=== PATIENT | male | born 1935 | race Caucasian/White ===

== ENCOUNTER 2016-10-30 11:33 | Emergency (ER) | payer MEDICARE, OTHER ==
[2016-10-30] MEDS ORDERED: NS 0.9% 1000 ML* 1,000 ML IV ONE (12:08)
[2016-10-30] MEDS ORDERED: fentaNYL* 50 MCG/ML 2 ML VIAL (100 MCG VIAL) IV SLOW PU ONE (12:10)
[2016-10-30 12:20] LABS: Hematocrit 43 % (42-52); Mean Corpuscular HGB Conc 33 g/dl (31-36); Mean Corpuscular Hemoglobin 33 pg (27-31); Mean Corpuscular Volume 100 fL (80-94); Mean Platelet Volume 8 um3 (7.4-10.4); Red Cell Distribution Width 13 % (10.5-15); White Blood Count 6.9 10^3/ul (3.5-10.8)
[2016-10-30 12:30] LABS: Urine Bacteria Absent (Absent); Urine Bilirubin Negative (Negative); Urine Glucose Negative (Negative); Urine Nitrite Negative (Negative)
[2016-10-30 12:36] LABS: Albumin 3.9 g/dL (3.2-5.2); BUN/Creatinine Ratio 19.8 (8-20); C Reactive Protein 3.71 mg/L (< 5.00); Calcium 9.6 mg/dL (8.6-10.3); EGFR African American 91.9 (>60); EGFR Non-African American 71.4 (>60); Globulin 5.9 g/dL (2-4); Total Bilirubin 0.4 mg/dL (0.2-1.0); Total Protein 9.8 g/dL (6.4-8.9)
--- NOTE | 2016-10-30 13:12 | RAD ---
INDICATION: Right flank pain radiating to the right lower quadrant. COMPARISON: Comparison is made with a prior CT of the abdomen and pelvis from June 27, 2013. TECHNIQUE: A CT scan of the abdomen and pelvis was performed without intravenous or oral contrast. Contiguous axial sections were obtained from the lung bases through the symphysis pubis. Images were reconstructed in the coronal and sagittal planes. FINDINGS: Images through the lung bases demonstrate mild bronchiectasis and chronic interstitial lung changes and paraseptal emphysematous change. No pleural effusion is present. The liver and spleen are normal in size. No significant focal abnormality is seen. There is a small splenic calcifications suggest the possibility of old granulomatous disease. Note is made of gallstones. No gallbladder wall thickening is seen. The pancreas appears to be within normal limits. The adrenal glands appear to be within normal limits. There is a horseshoe kidney present. There are multiple calculi present on the right side measuring up to 6 mm in size. There is dilatation of the right renal pelvis and ureter to the level of the ureterovesical junction. There is a small calculus present in the dependent portion of the urinary bladder measuring 3 mm in size likely representing a recently passed calculus. The bladder is decompressed with a Ramirez catheter. There is a small small amount of air within the bladder. The aorta is normal in caliber with moderate calcific plaque present. There is a filter present within the inferior vena cava. This extends superior to the level of the renal veins. There is a retroaortic left renal vein. No significant enlarged retroperitoneal lymph nodes are seen. The stomach, small and large bowel appear nondistended. The appendix is within normal limits. There is no evidence for diverticulitis or colitis. There is a small periumbilical hernia containing fat. No free intraperitoneal air or fluid is seen. There are chronic compression fractures of the T12, L1, L2, L3, L4 and L5 vertebral bodies. No other significant focal osseous abnormalities are seen. IMPRESSION: 1. 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 2. THERE ARE MULTIPLE SMALL ADDITIONAL RENAL CALCULI ON THE RIGHT SIDE. 3. CHOLELITHIASIS. 4. MULTIPLE CHRONIC DORSAL AND LUMBAR COMPRESSION FRACTURES.
[2016-10-30 13:21] LABS: Potassium 3.5 mmol/L (3.5-5.0)
[2016-10-30 15:34] VITALS: BP 148/74
--- NOTE | 2016-10-30 19:32 | PN ---
Progress Note - Progress Note Date of Service: 10/30/16 Note: Steve called and said that they have on file that the patient is allergic to Bactrim although patient is not sure what the allergy is. Told the pharmacy to switch patient to ciprofloxacin 500mg bid x7 days.
--- NOTE | 2016-10-31 16:02 | ED ---
Michael Lima Auryana, scribed for Lyndon Blair MD on 10/30/16 at 1220 . GI/ HPI - HPI Summary HPI Summary: 80 year old male presents to the ED with inability to urinate and right flank pain starting yesterday. Patient reports that the pain started at the right flank but now radiate down to the RLQ. He denies any fever, nausea, or any vomiting. PMHx is significant for sepsis, kidney stones and chronic back pain s/ p discectomy x2 (on fentanyl patch for pain). - History of Current Complaint Chief Complaint: EDAbdPain Time Seen by Provider: 10/30/16 12:07 Stated Complaint: ABD PAIN, Hx Obtained From: Patient Onset/Duration: Started Hours Ago - yesterday night, Still Present Timing: Constant Severity: Severe Current Severity: Severe Pain Intensity: 10 - at the right flank Location of Pain: Radiates to:, RLQ Associated Signs and Symptoms: Positive: Other: - inability to urinate. 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, Other Cardiovascular Problems/Disorders - CARDIAC CATH WITH 2 STENTS Denies: Hx Congestive Heart Failure, Hx Valvular Heart Disease Respiratory History: Reports: Hx Pneumonia, Other Respiratory Problems/ Disorders - WAS IP @ [facility] [place] FROM [id number] HAD PN Denies: Hx Asthma, Hx Chronic Obstructive Pulmonary Disease (COPD) GI History: Reports: Hx Gastroesophageal Reflux Disease Denies: Other GI Disorders History: Reports: Hx Benign Prostatic Hyperplasia, Hx Chronic Renal Failure - CKD, Hx Kidney Stones - HX- APPROX 2010 Denies: Hx Dialysis, Hx Renal Disease, Other Problems/Disorders Musculoskeletal History: Reports: Hx Arthritis - RHEUMATOID, Hx Back Problems - CHRONIC Sensory History: Reports: Hx Cataracts, Hx Contacts or Glasses - GLASSES, Hx Hearing Problem - a bit hard of hearing Denies: Hx Hearing Aid Opthamlomology History: Reports: Hx Cataracts, Hx Contacts or Glasses - GLASSES Neurological History: Reports: Other Neuro Impairments/Disorders - SJOGERNS/ FORGETFULLNESS Psychiatric History: Denies: Hx Panic Disorder - Surgical History Surgery Procedure, Year, and Place: LUMBAR LAMENECTOMY L3-L4 1997- [facility] [place]. BACK SURGERY 1968- [facility] [place]. 2-CARDIAC STENTS 1999- [employer]. 03/28- PACEMAKER INSERTION- [facility] [place] Hx Anesthesia Reactions: No - Immunization History Date of Tetanus Vaccine: More than 10 years ago Date of Influenza Vaccine: Not since age 67 and patient refuses Infectious Disease History: No Infectious Disease History: Denies: Traveled Outside the [place] in Last 30 Days - Family History Known Family History: Positive: Diabetes, Other - cancer - Social History Alcohol Use: None Substance Use Type: Reports: None Smoking Status (MU): Former Smoker Amount Used/How Often: 1 PPD FROM AGE 19 Have You Smoked in the Last Year: No Review of Systems Constitutional: Negative Negative: Fever Eyes: Negative ENT: Negative Cardiovascular: Negative Respiratory: Negative Positive: Abdominal Pain - RLQ pain . Negative: Vomiting, Nausea Positive: flank pain, other - inability to urinate Musculoskeletal: Negative Skin: Negative Neurological: Negative Psychological: Normal All Other Systems Reviewed And Are Negative: Yes Physical Exam - Summary Physical Exam Summary: VITAL SIGNS: Reviewed. GENERAL: Patient is a elderly male who is lying comfortable in the stretcher. Patient is not in any acute respiratory distress. Patient is in acute pain distress secondary to the pain. HEAD AND FACE: Normocephalic and atraumatic. EYES: PERRLA, EOMI x 2, No injected conjunctiva. EARS: Hearing grossly intact. Ear canals and tympanic membranes are WNL. MOUTH: Oropharynx within normal limits. NECK: Supple, trachea is midline, no adenopathy, no JVD. CHEST: Symmetric, no tenderness at palpation LUNGS: Clear to auscultation bilaterally. No wheezing or crackles. CVS: RRR, S1 and S2 present, no murmurs or gallops appreciated. ABDOMEN: Soft, obese, right CVA tenderness, RLQ tenderness. No signs of distention. Positive bowel sounds. No rebound no guarding, and no masses palpated. No abdominal bruit or pulsations. EXTREMITIES: FROM in all major joints, no edema, no cyanosis or clubbing. NEURO: Alert and oriented x 3. No acute neurological deficits. Speech is normal. SKIN: Dry and warm Triage Information Reviewed: Yes Vital Signs On Initial Exam: Initial Vitals Temp Pulse Resp BP Pulse Ox 98.9 F 93 18 207/139 98 10/30/16 12:01 10/30/16 12:01 10/30/16 12:01 10/30/16 12:01 10/30/16 12:01 Vital Signs Reviewed: Yes Diagnostics - Vital Signs Vital Signs Temp Pulse Resp BP Pulse Ox 10/30/16 12:01 98.9 F 93 18 207/139 98 - Laboratory Lab Results: Lab Results 10/30/16 10/30/16 10/30/16 Range/Units 12:00 12:00 12:00 WBC 6.9 (3.5-10.8) 10^3/ul RBC 4.30 (4.0-5.4) 10^6/ul Hgb 14.0 (14.0-18.0) g/dl Hct 43 (42-52) % MCV 100 H (80-94) fL MCH 33 H (27-31) pg MCHC 33 (31-36) g/dl RDW 13 (10.5-15) % Plt Count 216 (150-450) 10^3/ul MPV 8 (7.4-10.4) um3 Neut % (Auto) 73.3 (38-83) % Lymph % (Auto) 13.6 L (25-47) % Barton % (Auto) 9.6 H (1-9) % Eos % (Auto) 2.2 (0-6) % Baso % (Auto) 1.3 (0-2) % Absolute Neuts (auto) 5.0 (1.5-7.7) 10^3/ul Absolute Lymphs (auto) 0.9 L (1.0-4.8) 10^3/ul Absolute Monos (auto) 0.7 (0-0.8) 10^3/ul Absolute Eos (auto) 0.1 (0-0.6) 10^3/ul Absolute Basos (auto) 0.1 (0-0.2) 10^3/ul Absolute Nucleated RBC 0.01 10^3/ul Nucleated RBC % 0.1 Sodium 132 L (133-145) mmol/L Potassium 3.5 (3.5-5.0) mmol/L Chloride 101 (101-111) mmol/L Carbon Dioxide 22 (22-32) mmol/L Anion Gap 9 (2-11) mmol/L BUN 20 (6-24) mg/dL Creatinine 1.01 (0.67-1.17) mg/dL Est GFR ( Amer) 91.9 (>60) Est GFR (Non-Af Amer) 71.4 (>60) BUN/Creatinine Ratio 19.8 (8-20) Glucose 125 H (70-100) mg/dL Lactic Acid (0.5-2.0) mmol/L Calcium 9.6 (8.6-10.3) mg/dL Total Bilirubin 0.40 (0.2-1.0) mg/dL AST 25 (13-39) U/L ALT 21 (7-52) U/L Alkaline Phosphatase 92 (34-104) U/L C-Reactive Protein 3.71 (< 5.00) mg/L Total Protein 9.8 H (6.4-8.9) g/dL Albumin 3.9 (3.2-5.2) g/dL Globulin 5.9 H (2-4) g/dL Albumin/Globulin Ratio 0.7 L (1-3) Amylase 95 (29-103) U/L Lipase 20 (11.0-82.0) U/L Urine Color Yellow Urine Appearance Cloudy Urine pH 5.0 (5-9) Ur Specific Erwin 1.024 (1.010-1.030) Urine Protein 1+(30 mg/dl) H (Negative) Urine Ketones 1+ H (Negative) Urine Blood 2+ H (Negative) Urine Nitrate Negative (Negative) Urine Bilirubin Negative (Negative) Urine Urobilinogen Negative (Negative) Ur Leukocyte Esterase 1+ H (Negative) Urine WBC (Auto) 3+(>20/hpf) H (Absent) Urine RBC (Auto) 3+(>10/hpf) H (Absent) Urine Bacteria Absent (Absent) Urine Glucose Negative (Negative) 10/30/16 Range/Units 12:00 WBC (3.5-10.8) 10^3/ul RBC (4.0-5.4) 10^6/ul Hgb (14.0-18.0) g/dl Hct (42-52) % MCV (80-94) fL MCH (27-31) pg MCHC (31-36) g/dl RDW (10.5-15) % Plt Count (150-450) 10^3/ul MPV (7.4-10.4) um3 Neut % (Auto) (38-83) % Lymph % (Auto) (25-47) % Barton % (Auto) (1-9) % Eos % (Auto) (0-6) % Baso % (Auto) (0-2) % Absolute Neuts (auto) (1.5-7.7) 10^3/ul Absolute Lymphs (auto) (1.0-4.8) 10^3/ul Absolute Monos (auto) (0-0.8) 10^3/ul Absolute Eos (auto) (0-0.6) 10^3/ul Absolute Basos (auto) (0-0.2) 10^3/ul Absolute Nucleated RBC 10^3/ul Nucleated RBC % Sodium (133-145) mmol/L Potassium (3.5-5.0) mmol/L Chloride (101-111) mmol/L Carbon Dioxide (22-32) mmol/L Anion Gap (2-11) mmol/L BUN (6-24) mg/dL Creatinine (0.67-1.17) mg/dL Est GFR ( Amer) (>60) Est GFR (Non-Af Amer) (>60) BUN/Creatinine Ratio (8-20) Glucose (70-100) mg/dL Lactic Acid 1.8 (0.5-2.0) mmol/L Calcium (8.6-10.3) mg/dL Total Bilirubin (0.2-1.0) mg/dL AST (13-39) U/L ALT (7-52) U/L Alkaline Phosphatase (34-104) U/L C-Reactive Protein (< 5.00) mg/L Total Protein (6.4-8.9) g/dL Albumin (3.2-5.2) g/dL Globulin (2-4) g/dL Albumin/Globulin Ratio (1-3) Amylase (29-103) U/L Lipase (11.0-82.0) U/L Urine Color Urine Appearance Urine pH (5-9) Ur Specific Erwin (1.010-1.030) Urine Protein (Negative) Urine Ketones (Negative) Urine Blood (Negative) Urine Nitrate (Negative) Urine Bilirubin (Negative) Urine Urobilinogen (Negative) Ur Leukocyte Esterase (Negative) Urine WBC (Auto) (Absent) Urine RBC (Auto) (Absent) Urine Bacteria (Absent) Urine Glucose (Negative) Result Diagrams: 10/30/16 12:00 10/30/16 12:00 Lab Statement: Any lab studies that have been ordered have been reviewed, and results considered in the medical decision making process. - CT ABD/PEL CT Interpretation: Positive (See Comments) - IMPRESSION: 1. 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 2. THERE ARE MULTIPLE SMALL ADDITIONAL RENAL CALCULI ON THE RIGHT SIDE. 3. CHOLELITHIASIS. 4. MULTIPLE CHRONIC DORSAL AND LUMBAR COMPRESSION FRACTURES. CT Interpretation Completed By: Radiologist - EKG 13:20 EKG Interpretation: paced EKG @ 63 BPM GIGU Course/Dx - Course Assessment/Plan: 80 year old male presents to the ED with inability to urinate and right flank pain starting yesterday. Patient reports that the pain started at the right flank but now radiate down to the RLQ. He denies any fever, nausea , or any vomiting. PMHx is significant for sepsis, kidney stones and chronic back pain s/p discectomy x2 (on fentanyl patch for pain). Test result w/o any significant abnormalities. UA positive for U.T.I. ABD/PEL CT-IMPRESSION: 1. 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 2. THERE ARE MULTIPLE SMALL ADDITIONAL RENAL CALCULI ON THE RIGHT SIDE. 3. CHOLELITHIASIS. 4. MULTIPLE CHRONIC DORSAL AND LUMBAR COMPRESSION FRACTURES. Initially when the patient arrived, the patient stated that he could not urinate, and we did a bladder scan but it was inconclusive. Therefore, we decided to place a foly catheter and only removed 90 CC of urine. It seems that the symptoms are secondary to a passed stone. After, the patient was give IV fluids and fentanyl for pain, all of the symptoms improved. The patient will be given Rx for U.T.I. and discharged home with F/U to PCP. At this time patient reports pain 0/10. I discussed all the findings and test results with the patient. Patient was instructed to return to the emergency room immediately if any of the symptoms return or worsens. Plan of care was discussed with the patient and understands and agrees. All questions were answered at patient satisfaction. There were no further complaints or concerns. Lung exam before discharge: CTA B/L. Good air exchange. No wheezing or crackles heard. CVS: S1 and S2 present. No murmurs appreciated. Patient is alert and oriented x 3. Patient is hemodynamically stable. Patient will be discharged home with follow up PCP in the next 2-3 days - Diagnoses Provider Diagnoses: passed kidney stone, UTI (urinary tract infection) Discharge - Discharge Plan Condition: Stable Disposition: HOME Prescriptions: Sulfamethox/Trimethoprim DS* [Bactrim DS 800/160 TAB*] 1 tab PO BID #14 tab Patient Education Materials: Kidney Stones (ED), Urinary Tract Infection in Men (ED) Referrals: Mason Alonso MD [Primary Care Provider] - 2 Days The documentation as recorded by the Michael rios Auryana accurately reflects the service I personally performed and the decisions made by , Lyndon Blair MD.
--- NOTE | 2016-11-01 15:59 | PN ---
Progress Note - Progress Note Date of Service: 10/30/16 Note: given cipro. growth for enterococcus faecalis 50-75,000 in preliminary urine culture. will wait for final culture to ensure susceptibility.
== END 2016-10-30 15:37 | disposition home or self-care (01) ==
LOC: ED 11:33
DX: N20.0 Calculus of kidney (principal); N39.0 Urinary tract infection, site not specified; R10.84 Generalized abdominal pain; Z87.891 Personal history of nicotine dependence
CPT/HCPCS: 36415; 74176; 80053; 81003; 81015; 82150; 83605; 83690; 85025; 86140; 87077; 87086; 87186; 93005; 96374; 99284; J3010

== ENCOUNTER 2016-11-11 18:29 | Inpatient (IN) | payer MEDICARE, OTHER ==
[2016-11-11] MEDS ORDERED: NS 0.9% 1000 ML* 1,000 ML IV ONE (19:02)
[2016-11-11] MEDS ORDERED: fentaNYL* 50 MCG/ML 2 ML VIAL (100 MCG VIAL) IV SLOW PU ONE (19:03)
[2016-11-11] MEDS ORDERED: Ondansetron INJ* 2 MG/ML VIAL IV ONE (19:03)
[2016-11-11] MEDS ORDERED: Orphenadrine Citrate IV* 30 MG/ML 2 ML VIAL IV ONE (19:51)
[2016-11-11 20:15] LABS: Hematocrit 42 % (42-52); Hemoglobin 13.6 g/dl (14.0-18.0); Mean Corpuscular HGB Conc 33 g/dl (31-36); Mean Corpuscular Hemoglobin 32 pg (27-31); Mean Corpuscular Volume 99 fL (80-94); Mean Platelet Volume 8 um3 (7.4-10.4); Red Cell Distribution Width 13 % (10.5-15); White Blood Count 8.1 10^3/ul (3.5-10.8)
[2016-11-11 20:27] LABS: Albumin 3.4 g/dL (3.2-5.2); BUN/Creatinine Ratio 18.9 (8-20); C Reactive Protein 6.6 mg/L (< 5.00); EGFR African American 86.9 (>60); EGFR Non-African American 67.6 (>60); Globulin 5.3 g/dL (2-4); Potassium 3.9 mmol/L (3.5-5.0); Total Bilirubin 0.6 mg/dL (0.2-1.0); Total Protein 8.7 g/dL (6.4-8.9)
--- NOTE | 2016-11-11 20:44 | RAD ---
INDICATION: Chest pain after a fall COMPARISON: Chest x-ray dated April 07, 2014 TECHNIQUE: Single AP view of the chest was obtained. FINDINGS: Cardiac pacemaker is seen overlying the left upper chest with 2 leads overlying the heart. There is a mild degree of cardiomegaly unchanged from the previous chest x-ray. The pulmonary vasculature is indistinct and slightly engorged, worse when compared to the previous chest x-ray in appearance to the previous chest x-ray The lungs are grossly clear. There is no evidence of a large pleural effusion. Visualized bones are normal for the patient's age. IMPRESSION: CHEST X-RAY FINDINGS ARE COMPATIBLE WITH WORSENING CONGESTIVE HEART FAILURE RELATIVE TO THE APRIL 07, 2014 CHEST X-RAY.
--- NOTE | 2016-11-11 20:45 | RAD ---
INDICATION: Pelvis and left hip pain after a fall TECHNIQUE: An AP view of the pelvis and 6 views of the left femur and hip were obtained. FINDINGS: The bones of the pelvis are intact and appropriately aligned. There is a slightly impacted fracture at the left femoral neck exhibiting a small degree of varus deformity. Remaining visualized bones are intact and appropriately aligned. IMPRESSION: Left femoral neck fracture exhibiting a small degree of impaction and varus deformity.
[2016-11-11] MEDS ORDERED: HYDROmorphone* 1 MG/ML 1 ML SYR IV SLOW PU PRN (21:28)
[2016-11-11] MEDS ORDERED: Acetaminophen TAB* 325 MG PO PRN (21:32)
[2016-11-11] MEDS ORDERED: Ondansetron INJ* 2 MG/ML VIAL IV PRN (21:32)
[2016-11-11] MEDS ORDERED: Senna TAB PO PRN (21:36)
[2016-11-11] MEDS: Cyclobenzaprine TAB* 10 MG PO PRN (21:44)
--- NOTE | 2016-11-11 22:42 | ED ---
Rosy Lima Thomas, scribed for Lyndon Blair MD on 11/11/16 at 1859 . Lower Extremity - HPI Summary HPI Summary: The pt is a 80 y/o M BIBA c/o L hip and L leg pain s/p a fall backwards today at 16:00. 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 The pain is rated 7/10 in the ED. Pt additionally c/o RLQ abd pain (since last week) and muscle spasms. Pt denies head trauma, neck pain, and LOC. He is currently on ASA. He last ate this morning (he denies eating lunch). At baseline, he is wheelchair bound. PMHx: angina, CAD, HLD, HTN, OK, and CRF. PSHx: lumbar laminectomy and pacemaker. SHx : no alcohol, no drugs, former smoker. FHx: DM, CA. The pt reports that he was seen by Dr. Lyndon Blair two weeks ago and diagnosed with kidney stones. - History of Current Complaint Stated Complaint: FALL/LEFT HIP PAIN Time Seen by Provider: 11/11/16 18:56 Hx Obtained From: Patient, EMS Mechanism Of Injury: Fall From A Standing Position - backwards Onset of Pain: Immediate Onset/Duration: Still Present - today at 16:00 Pain Intensity: 7 Pain Scale Used: 0-10 Numeric Timing: Constant Location: Is Discrete @ - L hip, L knee Character Of Pain: Unable To Describe Associated Signs And Symptoms: Positive: Abdominal Pain - RLQ, since last week, Other - POS: L hip pain, L knee pain, muscle spasms; NEG: head trauma, neck pain , LOC Aggravating Factor(s): Nothing Alleviating Factor(s): Nothing - Allergies/Home Medications Allergies/Adverse Reactions: Allergies Allergy/AdvReac Type Severity Reaction Status Date / Time Methotrexate Allergy Severe Altered Verified 04/28/14 12:30 Mental Status Amoxicillin Allergy Rash And Verified 10/30/16 18:15 Itching Sulfa Antibiotics Allergy Rash Verified 11/11/16 19:11 Home Medications: Home Medications Senna TAB* [Senokot TAB*] 1 tab PO DAILY PRN 11/11/16 [History Confirmed ] PMH/Surg Hx/FS Hx/Imm Hx Previously Healthy: No Endocrine/Hematology History: Denies: Hx Diabetes Cardiovascular History: Reports: Hx Angina, Hx Coronary Artery Disease, Hx Hypercholesterolemia - HLD, Hx Hypertension, Hx Myocardial Infarction, Hx Pacemaker/ICD - 04/05/14, Other Cardiovascular Problems/Disorders - CARDIAC CATH WITH 2 STENTS Denies: Hx Congestive Heart Failure, Hx Valvular Heart Disease Respiratory History: Reports: Hx Pneumonia, Other Respiratory Problems/ Disorders - [place] [facility] [id number] HAD PN Denies: Hx Asthma, Hx Chronic Obstructive Pulmonary Disease (COPD) GI History: Reports: Hx Gastroesophageal Reflux Disease Denies: Other GI Disorders History: Reports: Hx Benign Prostatic Hyperplasia, Hx Chronic Renal Failure - CKD, Hx Kidney Stones - HX- APPROX 2010 Denies: Hx Dialysis, Hx Renal Disease, Other Problems/Disorders Musculoskeletal History: Reports: Hx Arthritis - RHEUMATOID, Hx Back Problems - CHRONIC Sensory History: Reports: Hx Cataracts, Hx Contacts or Glasses - GLASSES, Hx Hearing Problem - a bit hard of hearing Denies: Hx Hearing Aid Opthamlomology History: Reports: Hx Cataracts, Hx Contacts or Glasses - GLASSES Neurological History: Reports: Other Neuro Impairments/Disorders - SJOGERNS/ FORGETFULLNESS Psychiatric History: Denies: Hx Panic Disorder - Surgical History Surgery Procedure, Year, and Place: LUM[place] [facility] [place] [facility] [place] 2-CARDIAC STENTS 1999- [employer]. 03/28- PACEMAKER [place]ION[place] [facility] [place]x Anesthesia Reactions: No - Immunization History Date of Tetanus Vaccine: More than 10 years ago Date of Influenza Vaccine: Not since age 67 and patient refuses Infectious Disease History: Denies: Traveled Outside the [place] in Last 30 Days - Family History Known Family History: Positive: Diabetes, Other - cancer - Social History Alcohol Use: None Substance Use Type: Reports: None Smoking Status (MU): Former Smoker Amount Used/How Often: 1 PPD FROM AGE 19 Have You Smoked in the Last Year: No Review of Systems Constitutional: Negative Negative: Fever Eyes: Negative ENT: Negative Cardiovascular: Negative Respiratory: Negative Positive: Abdominal Pain - RLQ, since last week when diagnosed with kidney stones Genitourinary: Negative Positive: Other - POS: L hip pain, L leg pain, muscle spasms; NEG: head trauma, neck pain Skin: Negative Neurological: Other - NEG: LOC Psychological: Normal All Other Systems Reviewed And Are Negative: Yes Physical Exam - Summary Physical Exam Summary: VITAL SIGNS: Reviewed. GENERAL: ~Patient is a well-developed and nourished male who is lying comfortable in the stretcher. ~Patient is not in any acute respiratory distress. HEAD AND FACE: No signs of trauma. ~No ecchymosis, hematomas or skull depressions. No sinus tenderness. EYES: PERRLA, EOMI x 2, No injected conjunctiva, no nystagmus. EARS: Hearing grossly intact. Ear canals and tympanic membranes are within normal limits. MOUTH: Oropharynx within normal limits. NECK: Supple, trachea is midline, no adenopathy, no JVD, no carotid bruit, no c- spine tenderness, neck with full ROM. CHEST: Symmetric, no tenderness at palpation LUNGS: Clear to auscultation bilaterally. No wheezing or crackles. CVS: Regular rate and rhythm, S1 and S2 present, no murmurs or gallops appreciated. ABDOMEN: Soft, non-tender. No signs of distention. No rebound no guarding, and no masses palpated. Bowel sounds are normal. EXTREMITIES: Decreased ROM in L hip secondary to pain. Deformity in the L femur. Good pulses and good capillary refill. Otherwise, FROM in all other major joints, no edema, no cyanosis or clubbing. NEURO: Alert and oriented x 3. No acute neurological deficits. Speech is normal and follows commands. SKIN: Dry and warm Triage Information Reviewed: Yes Vital Signs On Initial Exam: Initial Vitals Temp Pulse Resp BP Pulse Ox 97.8 F 88 19 115/70 96 11/11/16 18:58 11/11/16 18:58 11/11/16 18:58 11/11/16 18:58 11/11/16 18:58 Vital Signs Reviewed: Yes Diagnostics - Vital Signs Vital Signs Temp Pulse Resp BP Pulse Ox 11/11/16 21:00 58 127/61 98 11/11/16 20:30 65 141/63 98 11/11/16 20:23 61 95 11/11/16 20:20 124/57 11/11/16 19:30 61 96 11/11/16 19:23 19 11/11/16 19:17 63 96 11/11/16 19:16 150/72 11/11/16 19:09 98.6 F 62 17 149/78 97 11/11/16 18:58 97.8 F 88 19 115/70 96 - Laboratory Lab Results: Lab Results 11/11/16 11/11/16 11/11/16 Range/Units 20:05 20:05 20:05 WBC 8.1 (3.5-10.8) 10^3/ul RBC 4.20 (4.0-5.4) 10^6/ul Hgb 13.6 L (14.0-18.0) g/dl Hct 42 (42-52) % MCV 99 H (80-94) fL MCH 32 H (27-31) pg MCHC 33 (31-36) g/dl RDW 13 (10.5-15) % Plt Count 162 (150-450) 10^3/ul MPV 8 (7.4-10.4) um3 Neut % (Auto) 84.5 H (38-83) % Lymph % (Auto) 8.1 L (25-47) % [place] % (Auto) 5.7 (1-9) % Eos % (Auto) 0.8 (0-6) % Baso % (Auto) 0.9 (0-2) % Absolute Neuts (auto) 6.9 (1.5-7.7) 10^3/ul Absolute Lymphs (auto) 0.7 L (1.0-4.8) 10^3/ul Absolute Monos (auto) 0.5 (0-0.8) 10^3/ul Absolute Eos (auto) 0.1 (0-0.6) 10^3/ul Absolute Basos (auto) 0.1 (0-0.2) 10^3/ul Absolute Nucleated RBC 0 10^3/ul Nucleated RBC % 0 Sodium 136 (133-145) mmol/L Potassium 3.9 (3.5-5.0) mmol/L Chloride 105 (101-111) mmol/L Carbon Dioxide 28 (22-32) mmol/L Anion Gap 3 (2-11) mmol/L BUN 20 (6-24) mg/dL Creatinine 1.06 (0.67-1.17) mg/dL Est GFR ( Amer) 86.9 (>60) Est GFR (Non-Af Amer) 67.6 (>60) BUN/Creatinine Ratio 18.9 (8-20) Glucose 104 H (70-100) mg/dL Lactic Acid 1.2 (0.5-2.0) mmol/L Calcium 9.0 (8.6-10.3) mg/dL Total Bilirubin 0.60 (0.2-1.0) mg/dL AST 23 (13-39) U/L ALT 18 (7-52) U/L Alkaline Phosphatase 80 (34-104) U/L C-Reactive Protein 6.60 H (< 5.00) mg/L B-Natriuretic Peptide ( - 100) pg/mL Total Protein 8.7 (6.4-8.9) g/dL Albumin 3.4 (3.2-5.2) g/dL Globulin 5.3 H (2-4) g/dL Albumin/Globulin Ratio 0.6 L (1-3) /30/17 Range/Units 20:05 WBC (3.5-10.8) 10^3/ul RBC (4.0-5.4) 10^6/ul Hgb (14.0-18.0) g/dl Hct (42-52) % MCV (80-94) fL MCH (27-31) pg MCHC (31-36) g/dl RDW (10.5-15) % Plt Count (150-450) 10^3/ul MPV (7.4-10.4) um3 Neut % (Auto) (38-83) % Lymph % (Auto) (25-47) % [place] % (Auto) (1-9) % Eos % (Auto) (0-6) % Baso % (Auto) (0-2) % Absolute Neuts (auto) (1.5-7.7) 10^3/ul Absolute Lymphs (auto) (1.0-4.8) 10^3/ul Absolute Monos (auto) (0-0.8) 10^3/ul Absolute Eos (auto) (0-0.6) 10^3/ul Absolute Basos (auto) (0-0.2) 10^3/ul Absolute Nucleated RBC 10^3/ul Nucleated RBC % Sodium (133-145) mmol/L Potassium (3.5-5.0) mmol/L Chloride (101-111) mmol/L Carbon Dioxide (22-32) mmol/L Anion Gap (2-11) mmol/L BUN (6-24) mg/dL Creatinine (0.67-1.17) mg/dL Est GFR ( Amer) (>60) Est GFR (Non-Af Amer) (>60) BUN/Creatinine Ratio (8-20) Glucose (70-100) mg/dL Lactic Acid (0.5-2.0) mmol/L Calcium (8.6-10.3) mg/dL Total Bilirubin (0.2-1.0) mg/dL AST (13-39) U/L ALT (7-52) U/L Alkaline Phosphatase (34-104) U/L C-Reactive Protein (< 5.00) mg/L B-Natriuretic Peptide 81 ( - 100) pg/mL Total Protein (6.4-8.9) g/dL Albumin (3.2-5.2) g/dL Globulin (2-4) g/dL Albumin/Globulin Ratio (1-3) Result Diagrams: 11/11/16 20:05 11/11/16 20:05 Lab Statement: Any lab studies that have been ordered have been reviewed, and results considered in the medical decision making process. - Radiology Pelvis XR Xray Interpretation: Positive (See Comments) - left femoral neck fracture exhibiting a small degree of impaction and varus deformity Radiology Interpretation Completed By: Radiologist Femur XR Xray Interpretation: Positive (See Comments) - left femoral neck fracture exhibiting a small degree of impaction and varus deformity Radiology Interpretation Completed By: Radiologist - EKG 20:25 Cardiac Rate: NL - 67 BPM EKG Interpretation: Paced rhythm. Lower Extremity Course/Dx - Course Assessment/Plan: The pt is a 80 y/o M BIBA c/o L hip and L leg pain s/p a fall backwards today at 16:00. 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 The pain is rated 7/ 10 in the ED. Pt additionally c/o RLQ abd pain (since last week) and muscle spasms. Pt denies head trauma, neck pain, and LOC. He is currently on ASA. He last ate this morning (he denies eating lunch). At baseline, he is wheelchair bound. PMHx: angina, CAD, HLD, HTN, OK, and CRF. PSHx: lumbar laminectomy and pacemaker. SHx: no alcohol, no drugs, former smoker. FHx: DM, CA. The pt reports that he was seen by Dr. Lyndon Blair two weeks ago and diagnosed with kidney stones. Test results without any significant abnormality except hemoglobin 13.6, Glucose 104, CRP 6.60. CXR reveals CHEST X-RAY FINDINGS ARE COMPATIBLE WITH WORSENING CONGESTIVE HEART FAILURE RELATIVE TO THE APRIL 07, 2014 CHEST X-RAY. Pelvis XR reveals left femoral neck fracture exhibiting a small degree of impaction and varus deformity. Femur XR reveals left femoral neck fracture exhibiting a small degree of impaction and varus deformity. In the ED course, the patient was given IV fluids and fentanyl for the pain. At this point, the patients symptoms slightly improved. I discussed the case with beba Coronado, who will admit the patient. The patient is hemodynamically stable and A&Ox3. - Diagnoses Differential Diagnosis/HQI/PQRI: Positive: Bursitis, Contusion, Fracture (Closed ), Sprain, Strain Provider Diagnoses: Femoral neck fracture - Physician Notifications Discussed Care Of Patient With: Gab Rehman Time Discussed With Above Provider: 20:17 Instructed by Provider To: Other - Consulted with beba Coronado, who will admit the patient. Discharge - Discharge Plan Condition: Fair Disposition: ADMITTED TO [facility] The documentation as recorded by the Rosy rios Thomas accurately reflects the service I personally performed and the decisions made by me, Lyndon Blair MD.
[2016-11-11] MEDS: oxyCODONE TAB* 5 MG TAB PO PRN (23:06)
[2016-11-11] MEDS: fentaNYL PATCH 25 MCG/HR TRANSDERM SCH (23:08)
[2016-11-11] MEDS: fentaNYL PATCH 12 MCG/HR TRANSDERM SCH (23:12)
[2016-11-11] MEDS: Heparin VIAL(*) 5000 UNITS/ML VIAL (FIVE THOUSAND) SUBCUT SCH (23:13)
[2016-11-11] MEDS: HYDROmorphone* 1 MG/ML 1 ML SYR IV SLOW PU PRN (23:59)
[2016-11-12] MEDS ORDERED: LORazepam INJ* 2 MG/ML 1 ML VIAL IV PUSH ONE (01:49)
[2016-11-12] MEDS ORDERED: LORazepam INJ* 2 MG/ML 1 ML VIAL ONE (01:53)
[2016-11-12] MEDS: HYDROmorphone* 1 MG/ML 1 ML SYR IV SLOW PU PRN ×2 (02:58→05:24)
[2016-11-12] MEDS: oxyCODONE TAB* 5 MG TAB PO PRN ×5 (03:39→20:59)
[2016-11-12 03:55] LABS: Urine Bacteria Absent (Absent); Urine Bilirubin Negative (Negative); Urine Glucose Negative (Negative); Urine Nitrite Negative (Negative)
[2016-11-12] MEDS: Cyclobenzaprine TAB* 10 MG PO PRN (04:30)
[2016-11-12] MEDS: Heparin VIAL(*) 5000 UNITS/ML VIAL (FIVE THOUSAND) SUBCUT SCH ×3 (06:12→22:25)
[2016-11-12] MEDS: fentaNYL Patch Check Q Shift 1 NOTE SCH (06:57)
[2016-11-12] MEDS ORDERED: HYDROmorphone* 2 MG/ML 1 ML SYR IV SLOW PU PRN (07:12)
[2016-11-12 07:33] LABS: Hematocrit 38 % (42-52); Hemoglobin 12.9 g/dl (14.0-18.0); Mean Corpuscular HGB Conc 34 g/dl (31-36); Mean Corpuscular Hemoglobin 34 pg (27-31); Mean Corpuscular Volume 100 fL (80-94); Mean Platelet Volume 9 um3 (7.4-10.4); Red Blood Count 3.86 10^6/ul (4.0-5.4); Red Cell Distribution Width 13 % (10.5-15); White Blood Count 7.4 10^3/ul (3.5-10.8)
[2016-11-12 07:43] LABS: BUN/Creatinine Ratio 17.8 (8-20); Calcium 8.8 mg/dL (8.6-10.3); EGFR Non-African American 66.8 (>60)
--- NOTE | 2016-11-12 07:43 | RAD ---
INDICATION: Traumatic left hip fracture. COMPARISON: Comparison is made with a prior x-ray study of the left femur and pelvis from November 11, [address] of the abdomen and pelvis from October 30, 2016. TECHNIQUE: Contiguous axial sections were obtained through the pelvis without intravenous or oral contrast. Images were reconstructed in the coronal and sagittal planes. FINDINGS: There is a transverse fracture of the left femoral neck. The fracture fragments are displaced and overriding. There is varus and posterior angulation of the distal fragment relative the proximal fragment. No other acute fractures are seen. No hematoma is noted. There are also fractures of the L4 and L5 vertebral bodies which are unchanged from the prior study. 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 There is a calculus present on the right side measuring 4 mm in size. There are also calculi within the urinary bladder. The visualized portion of the small bowel colon appear nondistended. There is a periumbilical hernia containing fat. There are small bilateral hydroceles. No free intraperitoneal air or fluid is seen. IMPRESSION: 1. DISPLACED ANGULATED FRACTURE OF THE LEFT FEMORAL NECK. 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 3. BLADDER CALCULI. 4. COMPRESSION FRACTURES OF THE L4 AND L5 VERTEBRA, UNCHANGED.
[2016-11-12] MEDS ORDERED: Perflutren Lipid Microsphere* 3 ML VIAL ONE (08:30)
[2016-11-12] MEDS: Morphine INJ* 10 MG/ML 1 ML SYRINGE IV PRN ×2 (09:03→22:26)
--- NOTE | 2016-11-12 09:35 | ECHO ---
Patient: SLIM GRANT [facility] Rec#: [id number] : 1935 Date: 11/12/2016 Age: 80y Height: 182.88 cm / 72.0 in Weight: 90.72 kg / 199.9 lbs Sex: M BSA: 2.13 Room#: 349 Admit Date#: 11/11/2016 Type: Inpatient Referring: Sarabjit Weinberg NP Reading: Corbin Thomas MD Cab Supervisor: Mehnaz Najera,KOBICS,RDMS CC: Mason Alonso MD CC: Alberto Guajardo MD Transthoracic Echocardiogram Indication: CAD, Abnormal EKG BP: 158/71 HR: 62 Rhythm: Paced Findings History: CAD, ID, PCI, ICD, HLD, GERD, CKD Technical Comments: The study is technically limited due to poor acoustic windows. The study was technically limited due to the patient's inability to lay in the left lateral decubitus position. Completed 0915 Left Ventricle: The left ventricular chamber size is normal. Mild concentric left ventricular hypertrophy is observed. The estimated ejection fraction is 45-50%. There appears to be mild global hypokinesis with relatively more pronounced inferior and inferobasal hypokinesis. There is abnormal ventricular septal wall motion consistent with right ventricular pacemaker. Abnormal left ventricular diastolic filling is observed, consistent with impaired relaxation. The doppler inflow pattern varies consistent with possible AV dissociation noted on the EKG. Left Atrium: The left atrium is mildly dilated. Right Ventricle: The right ventricle is mildly dilated. The right ventricular global systolic function is mildly reduced. A pacemaker wire is visualized in the right ventricle. Right Atrium: The right atrium is not well visualized. Aortic Valve: The aortic valve is trileaflet. The aortic valve leaflets are mildly thickened. Systolic excursion of the right coronary cusp is reduced. There is aortic annular calcification. There is no evidence of aortic regurgitation. There is mild to moderate aortic stenosis.Mild by peak velocity and more moderate by 2d and continuity. The mean gradient of the aortic valve is 10.5 mmHg. The aortic valve area, by peak velocities, is calculated at 1.2 cm2. Mitral Valve: The mitral valve leaflets are mildly thickened. There is a trace of mitral regurgitation. There is no evidence of mitral stenosis. Tricuspid Valve: The tricuspid valve leaflets are normal. There is moderate tricuspid regurgitation. The right ventricular systolic pressure is estimated at 72 mmHg. There is evidence of severe pulmonary hypertension. Pulmonic Valve: There is no evidence of pulmonic valve thickening. There is trace to mild pulmonic regurgitation. Pericardium: There is no significant pericardial effusion. Aorta: The ascending aorta is not well visualized. There is no dilatation of the aortic arch. There is mild dilatation of the aortic root. Pulmonary Artery: The main pulmonary artery appears normal. Venous: The inferior vena cava is not visualized. Contrast: Definity was used to optimize study. A total of 3 ml was used Conclusions Mild concentric left ventricular hypertrophy is observed. The estimated ejection fraction is 45-50%. There appears to be mild global hypokinesis with relatively more pronounced inferior and inferobasal hypokinesis. There is abnormal ventricular septal wall motion consistent with right ventricular pacemaker. Abnormal left ventricular diastolic filling is observed, consistent with impaired relaxation. The doppler inflow pattern varies consistent with possible AV dissociation noted on the EKG. The left atrium is mildly dilated. The right ventricle is mildly dilated. The right ventricular global systolic function is mildly reduced. Systolic excursion of the right coronary cusp is reduced. Overall, there is mild to moderate aortic stenosis. (Mild by peak velocity and more moderate by 2d and continuity). There is a trace of mitral regurgitation. There is moderate tricuspid regurgitation. There is evidence of severe pulmonary hypertension. Similar to the KENIA of 04/05/13 except that mild/moderate MR and mild TR was noted then. The PASP is higher now at 72mmhg c/t 40 mmhg on 04.03.13. Measurements Name Value Normal Range RVIDd (AP) 2D 3.4 cm (0.9 - 2.6) IVSd (2D) 1.4 cm (0.6 - 1) LVPWd (2D) 1.2 cm (0.6 - 1) LVIDd (2D) 3.9 cm (3.6 - 5.4) LVIDs (2D) 2.8 cm - LV FS (2D) 29 % (25 - 45) Aortic Annulus 2.4 cm (1.4 - 2.6) Ao root diameter (2D) 3.8 cm (2.1 - 3.5) Aortic arch 2.9 cm (1.8 - 3.4) LA dimension (AP) 2D 3.2 cm (2.3 - 3.8) LAd ISD 4CH 6.5 cm (2.9 - 5.3) LA ISD 4CH W 3.6 cm (2.5 - 4.5) Name Value Normal Range LA ESV SP 4CH (A/L) 44.67 ml - LA ESV SP 2CH (A/L) 72 ml - LA ESV BP (A/L) 59.28 ml - LA ESV BP (A/L) index 28 ml/m2 - LA ESV SP 4CH (MOD) 42.41 ml - LA ESV SP 2CH (MOD) 64.63 ml - Name Value Normal Range MV E-wave Vmax 0.6 m/sec - MV deceleration time 144 msec - MV A-wave Vmax 1 m/sec - MV E:A ratio 0.6 ratio - LV septal e' Vmax 0.05 m/sec - LV lateral e' Vmax 0.05 m/sec - LV E:e' septal ratio 12 ratio - LV E:e' lateral ratio 12 ratio - Name Value Normal Range AV Vmax 2.3 m/sec - AV VTI 39.2 cm - AV peak gradient 21 mmHg - AV mean gradient 10.5 mmHg - LVOT diameter 2 cm - LVOT Vmax 0.9 m/sec - LVOT VTI 19.5 cm - LVOT peak gradient 3.2 mmHg - LVOT mean gradient 2.5 mmHg - DOI (VTI) 0.5 ratio - MAGNUS (continuity Vmax) 1.2 cm2 - MAGNUS (continuity VTI) 1.6 cm2 - ARMANDO Vmax 1 m/sec - Name Value Normal Range TR Vmax 4 m/sec - TR peak gradient 64 mmHg - RAP 8 mmHg - RVSP 72 mmHg - Name Value Normal Range PV Vmax 0.7 m/sec - PV peak gradient 2 mmHg -
[2016-11-12] MEDS: Omeprazole CAP* 20 MG PO SCH (09:38)
[2016-11-12] MEDS: Magnesium Oxide TAB* 400 MG PO SCH (09:39)
[2016-11-12] MEDS: Metoprolol Tartrate TAB* 50 mg PO SCH (09:39)
[2016-11-12] MEDS: Docusate CAP* 100 MG PO SCH (09:39)
--- NOTE | 2016-11-12 10:38 | HP ---
CC: Dr. Alonso; Dr. Guajardo; Dr. Hawthorne; Dr. Cardozo * HISTORY AND PHYSICAL: DATE OF ADMISSION: 11/11/16 ATTENDING PHYSICIAN: Gab Rehman MD * (DICTATED BY JAZMINE SHEIKH) PRIMARY CARE PROVIDER: Dr. Alonso. PRIMARY BUSINESS PLANNING DIRECTOR: Dr. Guajardo. CONSULTING BUSINESS PLANNING DIRECTOR: Dr. Hawthorne. CONSULTING ORTHOPEDIST: Dr. Cardozo. CHIEF COMPLAINT: Fall. HISTORY OF PRESENT ILLNESS: Mr. Medina is a 80-year-old male patient with extensive past medical history. He has a history of CAD, rheumatoid arthritis, hypertension, hyperlipidemia, BPH, and history of psoas abscess, and discitis in the past in 2012 requiring a prolonged ICU stay. Since then has essentially been wheelchair bound and can only transfer to and from the wheelchair and take 2 or 3 steps. He has a history of A-fib and history of DVT, PE, status post IVC filter and he also has a history of discitis. He came into the ER today. He was out mowing his lawn. He can typically transfer on to his green chain puller and he does enjoy doing this and the green chain puller got stuck. He tried calling his daughter. He was waiting for her to come help him, but he was out in the hot sun. He wanted to get out of the sun, so he got off the green chain puller and tried to walk. Unfortunately, he is typically at baseline, can only take a few steps , and do transfers and he fell and he landed mostly on the left hip. He immediately had a significant amount of pain. His daughter and son-in-law were able to get him into his wheelchair and they wheeled him into the house. He was having a significant amount of pain in that left hip, so they called the ambulance and brought him into the hospital to be evaluated. He was evaluated here. It was noted that he had a left hip fracture and we were asked to evaluate for admission. He does deny having any chest pain. He says he has not been feeling short of breath. He says he has been sleeping at night with the exception that he has to get up frequently to urinate. He does have BPH issues. Denies any fevers or chills. He does state that he recently had a UTI. We will try and repeat his urine prior to any procedures. He denies having any dysuria now. No fevers or chills. No back pain. He recently had kidney stone, but again he has no flank pain. No hematuria or dysuria. He denies having any nausea, vomiting, or diarrhea. He denied having any loss of consciousness, he says he did not hit his head. Because of the fall and broken hips, we were asked to evaluate for admission. PAST MEDICAL HISTORY: Significant for: 1. Coronary artery disease. 2. Rheumatoid arthritis. 3. Hypertension. 4. Hyperlipidemia. 5. Psoas abscess. 6. A-fib. 7. Discitis. 8. PE/DVT. PAST SURGICAL HISTORY: 1. He has had an IVC filter. 2. Pacemaker. 3. Back surgery. 4. Cardiac catheterization x2. MEDICATIONS: The home meds according to the list that was provided includes: 1. Oxycodone 5 mg every 4 hours as needed. 2. Fentanyl 37.5 mcg transdermally every 72 hours. 3. Flomax 0.4 mg p.o. daily. 4. Senna one tablet p.o. daily as needed. 5. Omeprazole 20 mg daily. 6. Lopressor 50 mg daily. 7. Magnesium 400 mg daily. 8. Lisinopril 20 mg daily. 9. Proscar 5 mg daily at bedtime. 10. Colace 100 mg daily. 11. Aspirin 81 mg a day. ALLERGIES TO MEDICATION: Include: 1. METHOTREXATE. 2. PENICILLIN. 3. SULFA. FAMILY HISTORY: His mother had leukemia. Father's history is reviewed, noncontributory. SOCIAL HISTORY: The patient is a former smoker. He does not drink alcohol. He lives alone. Surrogate decision maker is his daughter. REVIEW OF SYSTEMS: There is no documented fever. He denied having any significant weight change. He denied having any double vision. No ear discharge. There was no rhinorrhea. No sore throat, no thyroid enlargement. Denied having any chest pain. There is no orthopnea. No nocturnal dyspnea. There was no abdominal pain. No nausea, no vomiting. No dysuria, no frequency. There was no seizure, no loss of consciousness, no pruritus, and no skin ulcerations. Review of 14 systems was completed, all others are negative. PHYSICAL EXAMINATION GENERAL: At this time, Mr. Medina is a 80-year-old male patient. He is chronically ill appearing. He is sitting in the ER stretcher. He does not appear to be in any acute distress. VITAL SIGNS: Blood pressure 149/78 with pulse of 62, respirations 17, O2 sat 97 %, temperate 98.6. HEENT: Head is atraumatic and normocephalic. Eyes: EOMs are intact. Sclerae are anicteric and not pale. Throat: Oral mucosa appears to be moist. No oropharyngeal erythema. NECK: Supple. LUNGS: Diminished in the bases. There were no crackles, rhonchi, or wheezes were heard. HEART: Sounds S1, S2. Regular rate and rhythm. No murmurs, rubs, or gallops. ABDOMEN: Soft, flat, nontender. Bowel sounds are present. EXTREMITIES: Pulses were 2+ throughout. Distal CSM checks are intact to left lower extremity. He did appear to be minimally rotated in the left lower extremity. NEUROLOGIC: He is awake, alert, and oriented x3. No gross focal deficits. SKIN: Intact. DIAGNOSTIC STUDIES/LAB DATA: Labs today revealed WBC of 8.1, RBC of 4.20, hemoglobin of 13.6, hematocrit of 42, platelet count of 162. Sodium is 136, potassium 3.9, chloride of 105, bicarb 28, BUN 20, creatinine 1.06, glucose 104 , lactic 1.2, calcium 9, total bili 0.6, AST 23, ALT 18, alk phos 80. CRP at 6.6. Albumin was 3.4. Urine is pending. He had multiple imaging in the ER, starting out with a femur x-ray, which revealed left femoral neck fracture exhibiting a small degree of impaction and varus deformity. Pelvis x-ray showed left femoral neck fracture exhibiting a small degree of impaction and varus deformity. He had a chest x-ray obtained today. Radiology read this as chest x-ray findings compatible with worsening CHF relative to the 04/07/14 chest x-ray. My review appears that the patient does have, looks like may be an acute interstitial type of lung disease, especially is not giving any history of orthopnea, weight gain, or any symptoms of CHF. The EKG showed an AV paced rhythm. His last echo that I have in 2013, EF of % to 40%. Old medical records were reviewed. ASSESSMENT AND PLAN: Mr. Medina is a 80-year-old male patient with multiple medical problems coming into the ER today with complaints of fall and left hip pain. He will be admitted under inpatient status for: 1. Left hip fracture. At this point, his RCRI score is 1. However, I think he is higher risk for surgery because preoperatively he has low mobility state. With chest x-ray findings, we think Cardiology and echo is appropriate to help further risk stratify him. I do not think he needs Lasix at this point per se, but my plan will be to go and get Orthopedics involved. They did recommend a CT of the left hip but I did order the CT, will see him. Cardiology will evaluate the patient as well and will continue to follow him. 2. Coronary artery disease. Continue his aspirin and beta-alannah for now. 3. Rheumatoid arthritis. Currently not on any medications for this. Follow with primary. 4. Hypertension. Continue meds with the exception of lisinopril. 5. Chronic pain. Continue fentanyl. 6. Hyperlipidemia. Continue current medical regimen. 7. Benign prostatic hypertrophy. Continue Flomax and Proscar. 8. History of psoas abscess and discitis, not an active issue. 9. Recent kidney stone and urinary tract infection. We are repeating the urine today. If there is any suspicion, we can consider renal ultrasound. We will follow. 10. History of pulmonary embolism, deep venous thrombosis. He will be placed on heparin subcu for prophylaxis and he has an IVC filter. 11. Atrial fibrillation. 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 12. Deep venous thrombosis prophylaxis, again high risk. He will be placed on heparin subcu and SCDs. 13. Code status. He wished to be a DNR. 14. Fluid, electrolyte, and nutrition. He can have a heart healthy diet. TIME SPENT: Time spent on this admission was 60 minutes, greater than half the time spent [id number] with the patient obtaining my history and physical, the other half of the time was spent going over the plan of care with the patient and implementing plan of care. I did discuss the plan of care with my attending, Dr. Rehman, he is in agreement. NEOZIGGY PALOMO NP [id number]/[facility] #: [id number] NATE
[2016-11-12 11:17] LABS: Magnesium 2.1 mg/dL (1.9-2.7)
[2016-11-12 11:22] LABS: Troponin I 0.06 ng/mL (<0.04)
[2016-11-12] MEDS ORDERED: ceFAZolin 2 GM PREMIX(*) 2 GM/50 ML BAG IVPB ONE (12:03)
--- NOTE | 2016-11-12 12:25 | PN ---
Subjective Date of Service: 11/12/16 Interval History: Pain level 10 in L hip, about 1 hour after IV hydromorphone. Objective Active Medications: Acetaminophen (Tylenol Tab*) 650 mg PO Q4H PRN PRN Reason: FEVER/PAIN Cyclobenzaprine HCl (Flexeril Tab*) 10 mg PO TID PRN PRN Reason: SPASMS Last Admin: 11/12/16 04:30 Dose: 10 mg Docusate Sodium (Colace Cap*) 100 mg PO [facility] Last Admin: 11/12/16 09:39 Dose: 100 mg Fentanyl (Duragesic Patch 25 Mcg/Hr*) 25 mcg TRANSDERM Q72H [facility] Last Admin: 11/11/16 23:08 Dose: 25 mcg Fentanyl (Duragesic Patch 12 Mcg/Hr *) 12 mcg TRANSDERM Q72H [facility] Last Admin: 11/11/16 23:12 Dose: 12 mcg Finasteride (Proscar Tab*) 5 mg PO QPM [facility] Heparin Sodium (Porcine) (Heparin Vial(*)) 5,000 units SUBCUT Q8HR [facility] Last Admin: 11/12/16 06:12 Dose: 5,000 units Magnesium Oxide (Magox 400 Tab*) 400 mg PO [facility] Last Admin: 11/12/16 09:39 Dose: 400 mg Metoprolol Tartrate (Lopressor Tab*) 50 mg PO [facility] Last Admin: 11/12/16 09:39 Dose: 50 mg Morphine Sulfate (Morphine Inj (Syringe)*) 5 mg IV Q3H PRN PRN Reason: PAIN Last Admin: 11/12/16 09:03 Dose: 5 mg Omeprazole (Prilosec Cap*) 20 mg PO [facility] Last Admin: 11/12/16 09:38 Dose: Not Given Ondansetron HCl (Zofran Inj*) 4 mg IV Q6H PRN PRN Reason: NAUSEA Oxycodone HCl (Roxycodone Tab*) 5 mg PO Q4H PRN PRN Reason: PAIN Last Admin: 11/12/16 09:40 Dose: 5 mg Pharmacy Profile Note (Fentanyl Patch Check Q Shift) 1 note N/A 0700,1900 [facility] Last Admin: 11/12/16 06:57 Dose: 1 note Senna (Senokot Tab*) 1 tab PO DAILY PRN PRN Reason: CONSTIPATION Tamsulosin HCl (Flomax Cap*) 0.4 mg PO 1700 [facility]I Vital Signs 11/11/16 11/11/16 11/11/16 21:30 21:44 21:59 Temperature Pulse Rate 62 60 Respiratory 18 Rate Blood Pressure 144/65 (mmHg) O2 Sat by Pulse 94 97 Oximetry 11/11/16 11/11/16 11/11/16 22:16 22:18 22:30 Temperature Pulse Rate 63 62 Respiratory Rate Blood Pressure 155/72 140/64 (mmHg) O2 Sat by Pulse 85 95 Oximetry 11/11/16 11/11/16 11/11/16 22:57 23:06 23:08 Temperature 98.6 F Pulse Rate 61 Respiratory 20 18 18 Rate Blood Pressure 150/56 (mmHg) O2 Sat by Pulse 94 Oximetry 11/11/16 11/11/16 11/11/16 23:12 23:44 23:45 Temperature 98.6 F Pulse Rate 61 Respiratory 18 18 20 Rate Blood Pressure 150/56 (mmHg) O2 Sat by Pulse 94 Oximetry 11/11/16 11/12/16 11/12/16 23:59 00:59 01:06 Temperature Pulse Rate Respiratory 18 20 20 Rate Blood Pressure (mmHg) O2 Sat by Pulse Oximetry 11/12/16 11/12/16 11/12/16 01:57 02:57 02:58 Temperature Pulse Rate Respiratory 18 18 18 Rate Blood Pressure (mmHg) O2 Sat by Pulse Oximetry 11/12/16 11/12/16 11/12/16 03:33 03:39 03:58 Temperature 98.2 F Pulse Rate 60 Respiratory 18 18 Rate Blood Pressure 158/71 (mmHg) O2 Sat by Pulse 100 Oximetry 11/12/16 11/12/16 11/12/16 04:30 05:23 05:24 Temperature Pulse Rate 64 Respiratory 20 20 Rate Blood Pressure 144/67 (mmHg) O2 Sat by Pulse Oximetry 11/12/16 11/12/16 11/12/16 05:39 06:24 06:30 Temperature Pulse Rate Respiratory 18 18 16 Rate Blood Pressure (mmHg) O2 Sat by Pulse Oximetry 11/12/16 11/12/16 11/12/16 07:20 07:57 08:00 Temperature 98.4 F Pulse Rate 62 Respiratory 18 16 16 Rate Blood Pressure 162/57 (mmHg) O2 Sat by Pulse 98 Oximetry 11/12/16 11/12/16 11/12/16 09:03 09:40 10:03 Temperature Pulse Rate Respiratory 16 16 16 Rate Blood Pressure (mmHg) O2 Sat by Pulse Oximetry Oxygen Devices in Use Now: Nasal Cannula Appearance: Alert, lying sl on R side. Appears comfortable at rest. Ears/Nose/Mouth/Throat: Clear Oropharnyx, Mucous Membranes Moist Neck: NL Appearance and Movements; NL JVP, No Thyroid Enlargement, Masses Respiratory: Symmetrical Chest Expansion and Respiratory Effort, Clear to Auscultation, Clear to Percussion Cardiovascular: NL Sounds; No Murmurs; No JVD, RRR, No Edema, - Extremities: No Edema, No Clubbing, Cyanosis, - Skin: No Rash or Ulcers, No Nodules or Sclerosis, - Neurological: Alert and Oriented x 3, NL Sensation Result Diagrams: 11/12/16 05:26 11/12/16 05:26 Additional Lab and Data: Lab Results 11/11/16 11/11/16 11/11/16 Range/Units 20:05 20:05 20:05 WBC 8.1 (3.5-10.8) 10^3/ul RBC 4.20 (4.0-5.4) 10^6/ul Hgb 13.6 L (14.0-18.0) g/dl Hct 42 (42-52) % MCV 99 H (80-94) fL MCH 32 H (27-31) pg MCHC 33 (31-36) g/dl RDW 13 (10.5-15) % Plt Count 162 (150-450) 10^3/ul MPV 8 (7.4-10.4) um3 Neut % (Auto) 84.5 H (38-83) % Lymph % (Auto) 8.1 L (25-47) % [place] % (Auto) 5.7 (1-9) % Eos % (Auto) 0.8 (0-6) % Baso % (Auto) 0.9 (0-2) % Absolute Neuts (auto) 6.9 (1.5-7.7) 10^3/ul Absolute Lymphs (auto) 0.7 L (1.0-4.8) 10^3/ul Absolute Monos (auto) 0.5 (0-0.8) 10^3/ul Absolute Eos (auto) 0.1 (0-0.6) 10^3/ul Absolute Basos (auto) 0.1 (0-0.2) 10^3/ul Absolute Nucleated RBC 0 10^3/ul Nucleated RBC % 0 Sodium 136 (133-145) mmol/L Potassium 3.9 (3.5-5.0) mmol/L Chloride 105 (101-111) mmol/L Carbon Dioxide 28 (22-32) mmol/L Anion Gap 3 (2-11) mmol/L BUN 20 (6-24) mg/dL Creatinine 1.06 (0.67-1.17) mg/dL Est GFR ( Amer) 86.9 (>60) Est GFR (Non-Af Amer) 67.6 (>60) BUN/Creatinine Ratio 18.9 (8-20) Glucose 104 H (70-100) mg/dL Lactic Acid 1.2 (0.5-2.0) mmol/L Calcium 9.0 (8.6-10.3) mg/dL Total Bilirubin 0.60 (0.2-1.0) mg/dL AST 23 (13-39) U/L ALT 18 (7-52) U/L Alkaline Phosphatase 80 (34-104) U/L C-Reactive Protein 6.60 H (< 5.00) mg/L B-Natriuretic Peptide ( - 100) pg/mL Total Protein 8.7 (6.4-8.9) g/dL Albumin 3.4 (3.2-5.2) g/dL Globulin 5.3 H (2-4) g/dL Albumin/Globulin Ratio 0.6 L (1-3) 11/11/16 Range/Units 20:05 WBC (3.5-10.8) 10^3/ul RBC (4.0-5.4) 10^6/ul Hgb (14.0-18.0) g/dl Hct (42-52) % MCV (80-94) fL MCH (27-31) pg MCHC (31-36) g/dl RDW (10.5-15) % Plt Count (150-450) 10^3/ul MPV (7.4-10.4) um3 Neut % (Auto) (38-83) % Lymph % (Auto) (25-47) % [place] % (Auto) (1-9) % Eos % (Auto) (0-6) % Baso % (Auto) (0-2) % Absolute Neuts (auto) (1.5-7.7) 10^3/ul Absolute Lymphs (auto) (1.0-4.8) 10^3/ul Absolute Monos (auto) (0-0.8) 10^3/ul Absolute Eos (auto) (0-0.6) 10^3/ul Absolute Basos (auto) (0-0.2) 10^3/ul Absolute Nucleated RBC 10^3/ul Nucleated RBC % Sodium (133-145) mmol/L Potassium (3.5-5.0) mmol/L Chloride (101-111) mmol/L Carbon Dioxide (22-32) mmol/L Anion Gap (2-11) mmol/L BUN (6-24) mg/dL Creatinine (0.67-1.17) mg/dL Est GFR ( Amer) (>60) Est GFR (Non-Af Amer) (>60) BUN/Creatinine Ratio (8-20) Glucose (70-100) mg/dL Lactic Acid (0.5-2.0) mmol/L Calcium (8.6-10.3) mg/dL Total Bilirubin (0.2-1.0) mg/dL AST (13-39) U/L ALT (7-52) U/L Alkaline Phosphatase (34-104) U/L C-Reactive Protein (< 5.00) mg/L B-Natriuretic Peptide 81 ( - 100) pg/mL Total Protein (6.4-8.9) g/dL Albumin (3.2-5.2) g/dL Globulin (2-4) g/dL Albumin/Globulin Ratio (1-3) Microbiology and Other Data: Microbiology 11/11/16 23:11 Nasal Screen MRSA (PCR)([facility]) - Final Nasal Mrsa Positive Assess/Plan/Problems-Billing Assessment: - Patient Problems (1) CAD (coronary artery disease) Current Visit: Yes Status: Acute Code(s): I25.10 - ATHSCL HEART DISEASE OF [place] CORONARY ARTERY W/O ANG PCTRS SNOMED Code(s): 61841246 Comment: Echo no change in LVEF or wall motion abnormality since prior echo. Pulmonary HTN worse. Discussed with Dr. Thomas. Pat cleared for surgery. Repeat troponin 11/13. (2) Hip fracture Current Visit: Yes Status: Acute Code(s): S72.009A - FRACTURE OF UNSP PART OF NECK OF UNSP FEMUR, INIT SNOMED Code(s): 469556061 Comment: Left hip. Ponce arthroplasty 11/12. (3) Third degree heart block Current Visit: No Status: Acute Priority: High Onset Date: 04/04/14 Code (s): I44.2 - ATRIOVENTRICULAR BLOCK, COMPLETE SNOMED Code(s): 26493928 Comment: PPM in place. Has had pacer checks but no recent outpt cardiology fup.
[2016-11-12] MEDS ORDERED: Lidocaine 2% PF * 5 ML VIAL ONE (12:41)
[2016-11-12] MEDS ORDERED: Etomidate* 2 MG/ML 10 ML VIAL ONE (12:41)
[2016-11-12] MEDS ORDERED: Bupivacaine 0.25% W/EPI* 50 ML VIAL ONE (12:42)
[2016-11-12] MEDS ORDERED: Succinylcholine* 20 MG/ML 10 ML VIAL ONE (12:45)
[2016-11-12] MEDS ORDERED: fentaNYL* 50 MCG/ML 2 ML VIAL (100 MCG VIAL) ONE ×2 (12:45→13:58)
[2016-11-12] MEDS ORDERED: Ondansetron INJ* 2 MG/ML VIAL ONE (14:05)
--- NOTE | 2016-11-12 15:14 | CONS ---
CC: Mason Alonso MD and Corbin Thomas MD. CARDIOLOGY CONSULTATION: DATE OF CONSULT: 11/12/16. REQUESTING PHYSICIAN: Gab Rehman MD. REASON FOR EVALUATION: Coronary artery disease, AV block, for preop for hip fracture repair. HISTORY OF PRESENT ILLNESS: This is a 80-year-old gentleman who has a longstanding history of coronary disease and a pacemaker for complete heart block placed in March 2014. He has a history of rheumatoid arthritis and severely limited. He uses a motorized scooter to get around his house and only walks very short distances to transfer from the scooter to the other situations. He normally cuts his lawn on riding mower and does that for 2 to 2- 1/2 hours at a time before he takes a break. He was cutting the lawn yesterday and got stuck in the mud and was concerned that he was stuck in the sun for too long. He got up off the tractor and tried to walk and fell and broke his left hip. He denied any chest pain, syncope, or near syncope. He denies orthopnea or chest pain. No palpitations. No fevers, chills or sweats. He was brought to the emergency room and pelvic CT was done, which revealed a displaced angulated fracture of the left femoral neck, horseshoe kidney with small calculus present on the right side, bladder calculi, compression fractures at L4 -L5 unchanged. The patient is anticipating hip repair. The patient's last pacemaker evaluation was on 04/25/16, at that time he was pacemaker dependent and had some short runs of non-sustained VT and some short episodes of mode switching raise possibility of brief AFib with controlled ventricular response. Pacemaker function was adequate. PAST MEDICAL HISTORY: Includes possible IN and stents x2 at [facility] in 2004, history of rheumatoid arthritis and had a reaction to methotrexate requiring discontinuation and staph sepsis in 2012 with a prolonged hospitalization and intubation. He has a history of hyperlipidemia, tobacco use discontinued 50 years ago. He denies asthma or emphysema. He denies diabetes. He has a history of hypertension. In March 2014, he had 3rd degree heart block and elevated troponins and underwent catheterization. At that time, he had second degree and complete heart block and a mild increase in troponin levels. The findings at that time included he had FFR of the previously stented right coronary artery, it was 0.88. He had a codominant system with calcification of the proximal to mid arteries. Left main was normal caliber. Left anterior descending proximal to mid portion was calcified. No significant obstruction. Circumflex was a large caliber vessel, calcified in its proximal to mid section. Shortly after the origin of the first OM branch, there was a focal eccentric lesion of 30% to 40%. There was another short focal eccentric lesion beyond the second OM measuring 25%. The right coronary artery stented mid portion had a 50% to 60% instant restenosis. Fractional flow reserve was 0.88. A temporary pacemaker was placed through the right antecubital vein because the patient had a previously placed IVC filter. Apparently he had a DVT and the filter placed in 2012. He denied pulmonary embolism. PAST SURGICAL HISTORY: Includes back surgeries in and , pacemaker implantation for high degree AV block with left bundle block, [employer] pacemaker. He has a small apical pneumothorax. ALLERGIES: He has allergy to METHOTREXATE, SULFA and AMOXICILLIN. SOCIAL HISTORY: He was from his as of June 2016. He has 3 children. He is accompanied by his daughter, Kash. 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 He has rare caffeine, he had a couple of cups a few days, but normally drinks less than a cup a day. He denies alcohol use. He denies tobacco use. REVIEW OF SYSTEMS: Review of systems x10 was negative except as above. MEDICATIONS: As inpatient include: 1. Acetaminophen. 2. Cyclobenzaprine. 3. Colace. 4. Fentanyl patch. 5. Finasteride 5 mg a day in the evening 6. Heparin 5000 subcu q.8. 7. Mag oxide 400 mg q.a.m. 8. Metoprolol tartrate 50 mg q.a.m. 9. Morphine 5 mg IV q.3. 10. Omeprazole 20 mg IV p.o. q.a.m. 11. Zofran 4 mg IV q.6 p.r.n. 12. Tamsulosin 4.4 mg at p.m. 13. Oxycodone 5 mg q.4 p.r.n. 14. Senokot 1 tablet daily. As an outpatient, he was also on: 15. Lisinopril 10 mg a day. 16. Aspirin 81 mg a day. PHYSICAL EXAMINATION: On physical exam, he is a well-developed, obese gentleman 200 pounds, who recently received pain medicines, somewhat sleepy but able to give a good history, but fell asleep at times during the conversation. His vital signs from 7:57 this morning with a pulse of 62, O2 sat 98%, blood pressure 162/57, no significant JVD. Carotids 2+. Extraocular muscles intact. Sclerae anicteric. Cardiac Exam: S1, S2 with a 2/6 systolic ejection murmur at the base and 3/6 holosystolic murmur at the left lower sternal border and apex, which seem to increase with inspiration. Pacemaker site was dry and intact. Anteriorly chest was clear. Abdomen: Bowel sounds present, nontender , obese. Exam was somewhat limited due to discomfort with any movement. He asked me to avoid touching his left lower quadrant and moving his left leg. Right femoral pulses intact without bruits. No edema on the right. Distal pulses intact. Motor strength 5/5 in the upper extremities. Deep tendon reflexes 2/4 bilaterally in the upper extremities. Alert and oriented x3. The lower extremities were not evaluated due to the fracture. LABORATORY DATA: His labs include hemoglobin 12.9, hematocrit of 38, MCV elevated at 100, the platelet count of 142. Sodium 132, potassium of 4, BUN 19 , creatinine of 1.07, calcium of 8.8, CRP mildly elevated at 6.3 on the 30th. Urine was 2+ white cells, 3+ red cells, 1+ protein. DIAGNOSTIC IMAGING: EKG revealed atrial sensing, ventricle pacing and it appeared that he had APCs, which were not conducted and some APCs that were tracked. Chest x-ray from yesterday revealed worsening congestive heart failure relatively March 2014. Pulmonary vasculature was slightly enlarged. Echocardiogram from today revealed abnormal ventricular septal motion consistent with paced rhythm. Mild concentric LVH. EF mildly reduced at 45% to 50% relatively more pronounced in inferior and inferior basilar hypokinesis. There appeared to be diastolic dysfunction, but the pattern varied somewhat consistent with what appeared to be a AV disassociation noted on the EKG. Mild biatrial enlargement. Mild to moderate aortic stenosis, trace MR and moderate TR, severe pulmonary hypertension with PA pressure of 72. Compared to the KENIA of March 2013, similar except that there was mild to moderate MR then and mild TR then, now he has trace MR and moderate TR with higher PA pressure of 72 compared to 40 in March 2013. IMPRESSION: My impression is that Mr. Medina has a fractured left leg after mechanical fall. He also has a history of coronary artery disease, complete heart block, pacemaker dependent, hypertension, and elevated PA pressures of unclear etiology. For the time being, I discussed the case with the patient, Dr. Julio and his daughter Kash. He is at increased risk for morbidity and mortality on major operative proceeding based on pulmonary hypertension, acute coronary disease, however, given the situation, which accordingly dictates proceeding to surgery as soon as possible as well as relatively low hemodynamic stressed procedure, I think he is an acceptable cardiac risk. He is at increased risk for systolic and diastolic function postop, especially with volume challenge. We have to monitor for heart failure. He is also at increased risk for ischemia given his known coronary disease. We will consider checking serial troponins perioperatively. 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 I discussed this with him and his daughter, Khushbu. Apparently he was on anticoagulation several years ago and it was discontinued because the patient was reluctant to take it during his nurse home visit in 2012. Would also consider adding a statin at some point in the future given his CAD. Mild to moderate Aortic stenosis by echo; does not seem to be limiting at present. I would suggest using a magnet over the pacemaker during surgery to avoid pacemaker inhibition. We would try to maintain his potassium and magnesium at acceptable range to decrease the risk of paroxysmal atrial fibrillation and ventricular tachycardia. Further recommendations will depend on his clinical course. We would suggest to control his blood pressure. He has had some normal blood pressure here. It might be worth changing his metoprolol to twice a day either short-acting or once a day atenolol to try to even out his blood pressure control. He also has mild to moderate , it does not appear to be limiting at present, but would avoid excessive afterload reduction and dehydration. May be vega to discontinue his lisinopril over mcc and perhaps replacing it with higher dose of atenolol or diltiazem. [id number]/[facility] #: [id number] [facility]
[2016-11-12] MEDS ORDERED: Acetaminophen IV 1GM/100ML * 100 ML IVPB ONE (15:20)
[2016-11-12] MEDS ORDERED: PROCHLORPERAZINE INJ 5 MG/ML 2 ML VIAL IV PRN (15:20)
[2016-11-12] MEDS ORDERED: fentaNYL* 50 MCG/ML 2 ML VIAL (100 MCG VIAL) IV PRN (15:20)
[2016-11-12] MEDS ORDERED: diPHENhydraMINE IV* 50 MG/ML 1 ml VIAL (BENADRYL) IV PRN (16:23)
[2016-11-12] MEDS ORDERED: Acetaminophen IV 1GM/100ML * 100 ML ONE (16:50)
[2016-11-12] MEDS ORDERED: oxyCODONE TAB* 5 MG TAB ONE (16:55)
[2016-11-12] MEDS ORDERED: Warfarin TAB(*) 5 MG PO ONE ×2 (17:00→23:50)
[2016-11-12] MEDS ORDERED: Clindamycin 600 MG IVPREMIX(* 600 MG/50 ML SDV IV SCH (17:00)
[2016-11-12] MEDS ORDERED: Lactated Ringers 250 ml Bag* 250 ML IV PRN (19:06)
[2016-11-12] MEDS ORDERED: Lactated Ringers 250 ml Bag* 250 ML IV ONE (19:15)
[2016-11-12] MEDS: Tamsulosin CAP* 0.4 MG PO SCH (20:38)
[2016-11-12] MEDS: Finasteride TAB* 5 MG PO SCH (20:38)
[2016-11-13] MEDS: oxyCODONE TAB* 5 MG TAB PO PRN ×3 (01:39→16:35)
[2016-11-13] MEDS: HYDROmorphone* 1 MG/ML 1 ML SYR IV SLOW PU PRN ×6 (02:11→21:36)
[2016-11-13] MEDS: Clindamycin 600 MG IVPREMIX(* 600 MG/50 ML SDV IV SCH ×2 (03:46→13:13)
[2016-11-13] MEDS: Heparin VIAL(*) 5000 UNITS/ML VIAL (FIVE THOUSAND) SUBCUT SCH ×2 (06:03→13:13)
[2016-11-13 06:21] LABS: Hematocrit 30 % (42-52); Hemoglobin 10.1 g/dl (14.0-18.0)
[2016-11-13 06:33] LABS: BUN/Creatinine Ratio 19.1 (8-20); Calcium 7.7 mg/dL (8.6-10.3); EGFR African American 79.1 (>60); EGFR Non-African American 61.5 (>60); Potassium 4.1 mmol/L (3.5-5.0)
[2016-11-13] MEDS: fentaNYL Patch Check Q Shift 1 NOTE SCH ×3 (07:09→20:08)
--- NOTE | 2016-11-13 07:25 | RAD ---
INDICATION: Left hip hemiarthroplasty. COMPARISON: Comparison is made with a prior CT of the left hip from November 11, 2016. TECHNIQUE: 2 AP views of the pelvis centered on the left hip were obtained. FINDINGS: The patient is status post left hip hemiarthroplasty. The bones and prostheses are in normal alignment. There is a curvilinear lucent area which projects over the left acetabulum which is present on the preoperative x-ray study of the left femur and appears to be an incidental finding. There is air within the adjacent soft tissues and multiple surgical bright present laterally. IMPRESSION: STATUS POST LEFT HIP HEMIARTHROPLASTY.
--- NOTE | 2016-11-13 08:02 | PN ---
Subjective Date of Service: 11/13/16 Interval History: Pain level 10. Cough with occ blood and occ yellow sputum. Objective Active Medications: Acetaminophen (Tylenol Tab*) 650 mg PO Q4H PRN PRN Reason: FEVER/PAIN Last Admin: 11/13/16 07:18 Dose: 650 mg Cyclobenzaprine HCl (Flexeril Tab*) 10 mg PO TID PRN PRN Reason: SPASMS Last Admin: 11/12/16 04:30 Dose: 10 mg Diphenhydramine HCl (Benadryl Iv*) 12.5 mg IV Q6H PRN PRN Reason: PRURITIS Docusate Sodium (Colace Cap*) 100 mg PO QAM [facility] Last Admin: 11/12/16 09:39 Dose: 100 mg Fentanyl (Duragesic Patch 25 Mcg/Hr*) 25 mcg TRANSDERM Q72H [facility] Last Admin: 11/11/16 23:08 Dose: 25 mcg Fentanyl (Duragesic Patch 12 Mcg/Hr *) 12 mcg TRANSDERM Q72H [facility] Last Admin: 11/11/16 23:12 Dose: 12 mcg Finasteride (Proscar Tab*) 5 mg PO QPM [facility] Last Admin: 11/12/16 20:38 Dose: 5 mg Heparin Sodium (Porcine) (Heparin Vial(*)) 5,000 units SUBCUT Q8HR [facility] Last Admin: 11/13/16 06:03 Dose: 5,000 units Hydromorphone HCl (Dilaudid Iv*) 1 mg IV SLOW PU Q2H PRN PRN Reason: PAIN Last Admin: 11/13/16 02:11 Dose: 1 mg Lactated Ringer's (Lactated Ringers 1000 Ml Bag*) 1,000 mls @ 100 mls/hr IV PER RATE [facility] Last Admin: 11/13/16 03:45 Dose: 100 mls/hr Clindamycin HCl/Dextrose (Cleocin 600 Mg Ivpremix(*) Sdv) 600 mg in 50 mls @ 100 mls/hr IV 0430,1230 [facility] Stop: 11/13/16 12:59 Last Admin: 11/13/16 03:46 Dose: 100 mls/hr Magnesium Oxide (Magox 400 Tab*) 400 mg PO QAM [facility] Last Admin: 11/12/16 09:39 Dose: 400 mg Metoprolol Tartrate (Lopressor Tab*) 50 mg PO QAM [facility] Last Admin: 11/12/16 09:39 Dose: 50 mg Morphine Sulfate (Morphine Inj (Syringe)*) 5 mg IV Q3H PRN PRN Reason: PAIN Last Admin: 11/12/16 22:26 Dose: 5 mg Multivitamins (Theragran Tab*) 1 tab PO DAILY [facility] Omeprazole (Prilosec Cap*) 20 mg PO QAM [facility] Last Admin: 11/12/16 09:38 Dose: Not Given Ondansetron HCl (Zofran Inj*) 4 mg IV Q6H PRN PRN Reason: NAUSEA Oxycodone HCl (Roxycodone Tab*) 5 mg PO Q4H PRN PRN Reason: PAIN Last Admin: 11/13/16 06:03 Dose: 5 mg Oxycodone HCl (Roxycodone Tab*) 5 mg PO ONCE PRN PRN Reason: PAIN - MODERATE Stop: 11/13/16 20:00 Last Admin: 11/12/16 16:59 Dose: 5 mg Pharmacy Profile Note (Fentanyl Patch Check Q Shift) 1 note N/A 0700,1900 [facility] Last Admin: 11/13/16 07:37 Dose: Not Given Senna (Senokot Tab*) 1 tab PO DAILY PRN PRN Reason: CONSTIPATION Tamsulosin HCl (Flomax Cap*) 0.4 mg PO 1700 [facility] Last Admin: 11/12/16 20:38 Dose: 0.4 mg Vital Signs 11/12/16 11/12/16 11/12/16 08:00 09:03 09:40 Temperature Pulse Rate Respiratory 16 16 16 Rate Blood Pressure (mmHg) O2 Sat by Pulse Oximetry 11/12/16 11/12/16 11/12/16 10:03 16:15 16:20 Temperature 97.3 F Pulse Rate 77 78 Respiratory 16 20 21 Rate Blood Pressure 158/85 156/82 (mmHg) O2 Sat by Pulse 97 97 Oximetry 11/12/16 11/12/16 11/12/16 16:25 16:27 16:30 Temperature Pulse Rate 71 65 66 Respiratory 20 20 17 Rate Blood Pressure 160/72 158/76 (mmHg) O2 Sat by Pulse 97 98 99 Oximetry 11/12/16 11/12/16 11/12/16 16:35 16:40 16:45 Temperature Pulse Rate 77 78 78 Respiratory 20 20 19 Rate Blood Pressure 154/89 169/74 153/78 (mmHg) O2 Sat by Pulse 99 98 98 Oximetry 11/12/16 11/12/16 11/12/16 16:58 16:59 17:00 Temperature 99.3 F Pulse Rate 78 Respiratory 24 24 18 Rate Blood Pressure 161/69 (mmHg) O2 Sat by Pulse 98 Oximetry 11/12/16 11/12/16 11/12/16 17:15 17:30 17:36 Temperature 98.8 F Pulse Rate 74 76 61 Respiratory 15 15 17 Rate Blood Pressure 120/59 108/57 129/64 (mmHg) O2 Sat by Pulse 100 100 96 Oximetry 11/12/16 11/12/16 11/12/16 17:45 18:00 18:15 Temperature Pulse Rate 66 63 Respiratory 14 14 Rate Blood Pressure 103/56 96/52 86/42 (mmHg) O2 Sat by Pulse 94 95 Oximetry 11/12/16 11/12/16 11/12/16 18:30 18:45 19:00 Temperature 100.3 F Pulse Rate 63 61 63 Respiratory 13 15 14 Rate Blood Pressure 77/43 99/52 93/49 (mmHg) O2 Sat by Pulse 92 95 95 Oximetry 11/12/16 11/12/16 11/12/16 19:15 19:23 19:30 Temperature 103 F Pulse Rate 63 63 Respiratory 15 15 Rate Blood Pressure 100/49 92/52 (mmHg) O2 Sat by Pulse 96 96 Oximetry 11/12/16 11/12/16 11/12/16 19:45 20:00 20:15 Temperature Pulse Rate 64 65 62 Respiratory 15 15 14 Rate Blood Pressure 98/52 97/56 96/55 (mmHg) O2 Sat by Pulse 95 95 94 Oximetry 11/12/16 11/12/16 11/12/16 20:30 20:45 21:00 Temperature 97.4 F Pulse Rate 61 Respiratory 14 20 18 Rate Blood Pressure 106/64 131/57 121/62 (mmHg) O2 Sat by Pulse 94 Oximetry 11/12/16 11/12/16 11/12/16 21:23 21:32 22:00 Temperature 97.4 F Pulse Rate 81 86 Respiratory 18 19 Rate Blood Pressure 128/63 (mmHg) O2 Sat by Pulse 96 95 Oximetry 11/12/16 11/12/16 11/13/16 22:26 23:00 00:00 Temperature Pulse Rate 63 63 Respiratory 17 16 18 Rate Blood Pressure (mmHg) O2 Sat by Pulse 94 95 Oximetry 11/13/16 11/13/16 11/13/16 00:01 00:53 01:00 Temperature 99.8 F Pulse Rate 62 65 Respiratory 18 1 Rate Blood Pressure 124/56 (mmHg) O2 Sat by Pulse 96 87 Oximetry 11/13/16 11/13/16 11/13/16 01:23 02:00 02:11 Temperature 99.8 F Pulse Rate 60 Respiratory 22 26 Rate Blood Pressure 127/46 (mmHg) O2 Sat by Pulse 92 Oximetry 11/13/16 11/13/16 11/13/16 02:24 03:00 04:00 Temperature 97.8 F Pulse Rate 63 60 Respiratory 21 27 17 Rate Blood Pressure 123/42 (mmHg) O2 Sat by Pulse 92 94 Oximetry 11/13/16 11/13/16 11/13/16 05:00 05:23 06:00 Temperature 97.8 F Pulse Rate 60 59 Respiratory 21 21 Rate Blood Pressure 104/38 (mmHg) O2 Sat by Pulse 93 93 Oximetry Oxygen Devices in Use Now: Nasal Cannula Appearance: Alert, partly up on ICU bed. Occ grimaces. In fair spirits. Eyes: No Scleral Icterus Neck: NL Appearance and Movements; NL JVP, No Thyroid Enlargement, Masses Respiratory: Symmetrical Chest Expansion and Respiratory Effort, Clear to Auscultation, Clear to Percussion Cardiovascular: RRR - soft systolic murmur across precordium, No Edema Extremities: No Edema, No Clubbing, Cyanosis, - Skin: No Rash or Ulcers, No Nodules or Sclerosis, - Neurological: Alert and Oriented x 3, NL Sensation Result Diagrams: 11/13/16 06:00 11/13/16 06:00 Additional Lab and Data: Lab Results 11/11/16 11/11/16 11/11/16 Range/Units 20:05 20:05 20:05 WBC 8.1 (3.5-10.8) 10^3/ul RBC 4.20 (4.0-5.4) 10^6/ul Hgb 13.6 L (14.0-18.0) g/dl Hct 42 (42-52) % MCV 99 H (80-94) fL MCH 32 H (27-31) pg MCHC 33 (31-36) g/dl RDW 13 (10.5-15) % Plt Count 162 (150-450) 10^3/ul MPV 8 (7.4-10.4) um3 Neut % (Auto) 84.5 H (38-83) % Lymph % (Auto) 8.1 L (25-47) % Upson % (Auto) 5.7 (1-9) % Eos % (Auto) 0.8 (0-6) % Baso % (Auto) 0.9 (0-2) % Absolute Neuts (auto) 6.9 (1.5-7.7) 10^3/ul Absolute Lymphs (auto) 0.7 L (1.0-4.8) 10^3/ul Absolute Monos (auto) 0.5 (0-0.8) 10^3/ul Absolute Eos (auto) 0.1 (0-0.6) 10^3/ul Absolute Basos (auto) 0.1 (0-0.2) 10^3/ul Absolute Nucleated RBC 0 10^3/ul Nucleated RBC % 0 Sodium 136 (133-145) mmol/L Potassium 3.9 (3.5-5.0) mmol/L Chloride 105 (101-111) mmol/L Carbon Dioxide 28 (22-32) mmol/L Anion Gap 3 (2-11) mmol/L BUN 20 (6-24) mg/dL Creatinine 1.06 (0.67-1.17) mg/dL Est GFR ( Amer) 86.9 (>60) Est GFR (Non-Af Amer) 67.6 (>60) BUN/Creatinine Ratio 18.9 (8-20) Glucose 104 H (70-100) mg/dL Lactic Acid 1.2 (0.5-2.0) mmol/L Calcium 9.0 (8.6-10.3) mg/dL Total Bilirubin 0.60 (0.2-1.0) mg/dL AST 23 (13-39) U/L ALT 18 (7-52) U/L Alkaline Phosphatase 80 (34-104) U/L C-Reactive Protein 6.60 H (< 5.00) mg/L B-Natriuretic Peptide ( - 100) pg/mL Total Protein 8.7 (6.4-8.9) g/dL Albumin 3.4 (3.2-5.2) g/dL Globulin 5.3 H (2-4) g/dL Albumin/Globulin Ratio 0.6 L (1-3) 11/11/16 Range/Units 20:05 WBC (3.5-10.8) 10^3/ul RBC (4.0-5.4) 10^6/ul Hgb (14.0-18.0) g/dl Hct (42-52) % MCV (80-94) fL MCH (27-31) pg MCHC (31-36) g/dl RDW (10.5-15) % Plt Count (150-450) 10^3/ul MPV (7.4-10.4) um3 Neut % (Auto) (38-83) % Lymph % (Auto) (25-47) % Upson % (Auto) (1-9) % Eos % (Auto) (0-6) % Baso % (Auto) (0-2) % Absolute Neuts (auto) (1.5-7.7) 10^3/ul Absolute Lymphs (auto) (1.0-4.8) 10^3/ul Absolute Monos (auto) (0-0.8) 10^3/ul Absolute Eos (auto) (0-0.6) 10^3/ul Absolute Basos (auto) (0-0.2) 10^3/ul Absolute Nucleated RBC 10^3/ul Nucleated RBC % Sodium (133-145) mmol/L Potassium (3.5-5.0) mmol/L Chloride (101-111) mmol/L Carbon Dioxide (22-32) mmol/L Anion Gap (2-11) mmol/L BUN (6-24) mg/dL Creatinine (0.67-1.17) mg/dL Est GFR ( Amer) (>60) Est GFR (Non-Af Amer) (>60) BUN/Creatinine Ratio (8-20) Glucose (70-100) mg/dL Lactic Acid (0.5-2.0) mmol/L Calcium (8.6-10.3) mg/dL Total Bilirubin (0.2-1.0) mg/dL AST (13-39) U/L ALT (7-52) U/L Alkaline Phosphatase (34-104) U/L C-Reactive Protein (< 5.00) mg/L B-Natriuretic Peptide 81 ( - 100) pg/mL Total Protein (6.4-8.9) g/dL Albumin (3.2-5.2) g/dL Globulin (2-4) g/dL Albumin/Globulin Ratio (1-3) Microbiology and Other Data: Microbiology 11/11/16 23:11 Nasal Screen MRSA (PCR)(KATINA) - Final Nasal Mrsa Positive Assess/Plan/Problems-Billing Assessment: - Patient Problems (1) CAD (coronary artery disease) Current Visit: Yes Status: Acute Code(s): I25.10 - ATHSCL HEART DISEASE OF [place] CORONARY ARTERY W/O ANG PCTRS SNOMED Code(s): 00616045 Comment: Echo no change in LVEF or wall motion abnormality since prior echo. Pulmonary HTN worse. Discussed with Dr. Thomas. Repeat troponin 11/13 was 0.08. No acute coronary event. (2) Hip fracture Current Visit: Yes Status: Acute Code(s): S72.009A - FRACTURE OF UNSP PART OF NECK OF UNSP FEMUR, INIT SNOMED Code(s): 688120510 Comment: Left hip. Ponce arthroplasty 11/12. Some difficulty with pain control, but concern over slow respirations which may be due to Jose Alejandro-Elena breathing and/or abdominal breathing. (3) Third degree heart block Current Visit: No Status: Acute Priority: High Onset Date: 04/04/14 Code (s): I44.2 - ATRIOVENTRICULAR BLOCK, COMPLETE SNOMED Code(s): 43386831 Comment: PPM in place. Has had pacer checks but no recent outpt cardiology fup. (4) Fever Current Visit: Yes Status: Acute Code(s): R50.9 - FEVER, UNSPECIFIED SNOMED Code(s): 472035543 Comment: Low grad fever. In view of hemoptysis and yellow sputum, start levofloxacin. CXR, urine C&S 11/13.
[2016-11-13] MEDS: Morphine INJ* 10 MG/ML 1 ML SYRINGE IV PRN ×2 (08:20→16:35)
--- NOTE | 2016-11-13 08:23 | RAD ---
INDICATION: Hemoptysis COMPARISON: Chest x-ray dated November 11, 2016 TECHNIQUE: Single AP portable view of the chest was obtained. FINDINGS: Image quality is compromised due to the relative inferiority of a portable chest x-ray. Left upper chest cardiac pacemaker is unchanged in position with 2 leads overlying the heart. The heart and mediastinum exhibit normal size and contour. Similar the previous chest x-ray the lungs exhibit "hazy" density with prominence of the pulmonary vasculature. Otherwise the lungs are grossly clear. There is no evidence of a large pleural effusion. Visualized bones are normal for the patient's age. IMPRESSION: Chest x-ray findings are indicative of congestive heart failure without significant change in appearance since the November 11, 2016 chest x-ray.
[2016-11-13] MEDS: Levofloxacin 500 MG IVPREMIX(* 500 MG/100 ML BAG IVPB SCH (08:45)
--- NOTE | 2016-11-13 09:08 | PN ---
Progress Note - Progress Note Date of Service: 11/13/16 SOAP: Subjective: []Patient seen at bedside in ICU. Alert and oriented. Complaining of moderate to severe left hip pain. He states he will not be doing any physical therapy today because he is in too much pain and is not ready. Currently c/o cough, no CP or SOB. Objective: [] Vital Signs Temp 104 F 11/13/16 07:58 Pulse 59 11/13/16 06:00 Resp 20 11/13/16 08:20 BP 104/38 11/13/16 06:00 Pulse Ox 93 11/13/16 06:00 Intake & Output 11/12/16 11/13/16 11/13/16 18:59 06:59 18:59 Intake Total 1700 1737 Output Total 475 310 Balance 1225 1427 Weight 241 lb 6.499 oz Intake: IV Fluids 1700 1089 LR 1700 1089 IVPB 158 LR 158 Oral 490 Output: Ramirez 325 310 Estimated Blood Loss 150 Laboratory Results - last 24 hr 11/12/16 11/12/16 11/12/16 05:25 05:26 17:54 Hgb Hct INR (Anticoag Therapy) Sodium Potassium Chloride Carbon Dioxide Anion Gap BUN Creatinine Est GFR ( Amer) Est GFR (Non-Af Amer) BUN/Creatinine Ratio Glucose POC Glucose (mg/dL) 123 H Calcium Magnesium 2.1 Troponin I 0.06 H* Blood Type A Positive Antibody Screen Negative 11/13/16 11/13/16 11/13/16 06:00 06:00 06:00 Hgb 10.1 L Hct 30 L INR (Anticoag Therapy) 1.23 H Sodium 131 L Potassium 4.1 Chloride 103 Carbon Dioxide 23 Anion Gap 5 BUN 22 Creatinine 1.15 Est GFR ( Amer) 79.1 Est GFR (Non-Af Amer) 61.5 BUN/Creatinine Ratio 19.1 Glucose 107 H POC Glucose (mg/dL) Calcium 7.7 L Magnesium Troponin I Blood Type Antibody Screen Left hip dressings are dry and intact +DF/PF left ankle 2+ DP pulse sensation intact mild calf tenderness, no significant edema appreciated, Bashir's negative Assessment: []s/p Left hip hemiarthroplasty for femoral neck fracture POD #1 Plan: []I encouraged him to try with PT/OT and the importance of at least trying to sit at the edge of bed and the potential complications that could occur with not moving and getting out of bed, pain appears to be the fear. WBAT Continue pain management Heparin for DVT proph per medicine on Levaquin for cough
[2016-11-13] MEDS: Vitamin THERAPEUTIC TAB PO SCH (09:52)
[2016-11-13] MEDS: Metoprolol Tartrate TAB* 50 mg PO SCH (09:52)
[2016-11-13] MEDS: Magnesium Oxide TAB* 400 MG PO SCH (09:52)
[2016-11-13] MEDS: Docusate CAP* 100 MG PO SCH (09:52)
[2016-11-13] MEDS: Omeprazole CAP* 20 MG PO SCH (09:52)
[2016-11-13 10:04] LABS: Mean Corpuscular HGB Conc 32 g/dl (31-36); Mean Corpuscular Hemoglobin 32 pg (27-31); Mean Corpuscular Volume 100 fL (80-94); Mean Platelet Volume 10 um3 (7.4-10.4); Red Blood Count 3.18 10^6/ul (4.0-5.4); Red Cell Distribution Width 13 % (10.5-15); White Blood Count 8.6 10^3/ul (3.5-10.8)
--- NOTE | 2016-11-13 14:42 | OP ---
DATE OF OPERATION: 11/12/16 - ROOM #335 DATE OF : 39 ATTENDING SURGEON: Fco Cardozo MD MANAGER QUANTITATIVE: Georgiana French RPA. ANESTHESIA: General endotracheal. PRE-OP DIAGNOSIS: Displaced left femoral leg fracture. POST-OP DIAGNOSIS: Displaced left femoral leg fracture. OPERATIVE PROCEDURE: Left hip cemented hemiarthroplasty. ESTIMATED BLOOD LOSS: 150 cc. COMPLICATIONS: None. HARDWARE: Geovanny LDFX #14 cemented stem, plus 028 mm head, 53 mm bipolar cup. SUMMARY: Mr. Medina is a 80-year-old male who had fallen off of his mower yesterday and landed hard directly on his left hip. He had significant pain and was brought to the emergency room here at [facility] [place]. X-rays were taken which had found a displaced femoral neck fracture. He was admitted that night to the hospitalist service and this morning underwent evaluation by Cardiology as well as an echo. He had been declared medically optimized and I discussed with Mr. Medina and his daughter that a hemiarthroplasty should work well so that he would be much more comfortable and be able to do transfers much easier than if he continued with the hip fracture. Risks of surgery such as infection, scar formation, stiffness, DVT, and pulmonary embolism were some of the risks discussed and they had wished to proceed. DESCRIPTION OF PROCEDURE: The patient was brought to the OR and an A-line was first placed. General endo-tracheal anesthesia was then established. He was slid from the hospital bed on to the OR table and then turned into the right lateral decubitus position. Axillary roll was placed and padded posts were placed and all exposed skin was nicely padded. Left hip area was prepped and then draped. Incision was made directly over the greater trochanter extending proximally and distally for about 7 to 8 cm. Incision was carried down through the skin and subcutaneous fat. Small bleeders encountered were ligated using electrocautery. Fascia was exposed and then sharply incised. Short external rotators and capsule were taken down from the posterior aspect of the greater trochanter. Fracture fragments from the femoral neck were immediately evident. Capsule was then opened a little bit more so that I can get better access to the head and acetabulum. Head appeared to spin relatively easily within the cup and I had a little bit of difficulty trying to break the suction seal even with the skid and a Ansari. The ventral head was removed. Acetabulum was swept multiple times to clean out any small fracture fragments and attention was turned to the proximal femur. Initial cleanup cut had been taken to try and improve the access to get the head out and box osteotome was used to open the femoral canal. Canal finder was easily passed. Treating with a 10 broach, he was progressively broached, but it seemed like I still had quite a flare especially along the anterior cortex of the femur. With a 16, he sat flush, but when we did a trial reduction using a 53 head, he seemed tight and long. Neck was then recut for approximately 1 cm so that we could come below the flare and be in a more normal position. A 15 broach was then used as a trial stem and with a 0 head and a 53 cup he seemed to fit quite nicely. Cups were trialed as a 52, 53, and 54 and the 53 sat best. Canal was then prepped with a brush and cement restrictor was placed. Sounds were also run and the 14 seemed to fit quite nicely. Canal was again copiously pulse lavaged and then the suction in the kit was then placed down the canal. Cement was being prepared. A 14 centralizer was placed in the distal portion of the stem and once the cement was ready, the canal was dried again and cement was placed from distal to proximal. Implant was then placed and excess cement was removed. Once the cement had hardened, he was again trialed with a plus 0 head and 53 cup and his leg length appeared good with excellent stability and easy motion. Trial instrumentation was removed and the 28 mm head followed by the polyethylene and then the cap were all placed. Hip was then easily relocated. Capsule and short external rotators were paired together to the posterior aspect of the greater trochanter. Fascia was repaired using interrupted #1 Vicryl sutures. Hip was again copiously pulse lavaged and subcutaneous tissues closed in layers using 2-0 Vicryl. Eckert and a sterile dressing were also applied. The patient is currently being extubated and has been stable and then went over to the recovery room. [id number]/[facility] #: [id number] NATE
[2016-11-13] MEDS: Tamsulosin CAP* 0.4 MG PO SCH (17:34)
[2016-11-13] MEDS: Finasteride TAB* 5 MG PO SCH (17:34)
[2016-11-14] MEDS: HYDROmorphone* 1 MG/ML 1 ML SYR IV SLOW PU PRN ×4 (06:18→20:26)
[2016-11-14] MEDS: Heparin VIAL(*) 5000 UNITS/ML VIAL (FIVE THOUSAND) SUBCUT SCH ×3 (06:20→21:26)
[2016-11-14 06:21] LABS: Comments Flag Yes; Hematocrit 28 % (42-52); Hemoglobin 9.2 g/dl (14.0-18.0)
[2016-11-14 06:36] LABS: BUN/Creatinine Ratio 22.4 (8-20); Calcium 8.1 mg/dL (8.6-10.3); EGFR African American 78.3 (>60); EGFR Non-African American 60.9 (>60); Potassium 4.3 mmol/L (3.5-5.0)
[2016-11-14] MEDS: oxyCODONE TAB* 5 MG TAB PO PRN (06:50)
[2016-11-14] MEDS: fentaNYL Patch Check Q Shift 1 NOTE SCH ×2 (06:53→18:52)
[2016-11-14] MEDS: Cyclobenzaprine TAB* 10 MG PO PRN ×2 (07:54→15:23)
[2016-11-14] MEDS: Levofloxacin 500 MG IVPREMIX(* 500 MG/100 ML BAG IVPB SCH (07:55)
[2016-11-14] MEDS ORDERED: fentaNYL PATCH 75 MCG/HR* 75 MCG TRANSDERM SCH (09:00)
[2016-11-14] MEDS: Omeprazole CAP* 20 MG PO SCH (09:31)
[2016-11-14] MEDS: Docusate CAP* 100 MG PO SCH (09:31)
[2016-11-14] MEDS: Magnesium Oxide TAB* 400 MG PO SCH (09:31)
[2016-11-14] MEDS: Vitamin THERAPEUTIC TAB PO SCH (09:31)
[2016-11-14] MEDS ORDERED: Polyethylene Glycol 3350* 17 GM PACKET PO PRN (10:02)
[2016-11-14] MEDS ORDERED: Metoprolol Tartrate TAB* 25 MG PO SCH (10:04)
[2016-11-14] MEDS ORDERED: oxyCODONE/Acetamin 5/325 MG* TAB PO PRN (10:04)
[2016-11-14] MEDS ORDERED: Furosemide IV* 10 MG/ML 2 ML VIAL (20 MG) IV ONE (10:11)
--- NOTE | 2016-11-14 10:28 | PN ---
Progress Note - Progress Note Date of Service: 11/14/16 SOAP: Subjective: []Patient seen at beside and with physical therapy. Used EZ stand to get him OOB to chair. C/O significant hip pain, even while at rest. Very anxious. Objective: [] Vital Signs Temp 98.8 F 11/14/16 07:29 Pulse 62 11/14/16 07:29 Resp 16 11/14/16 09:32 BP 100/53 11/14/16 07:29 Pulse Ox 98 11/14/16 08:31 Intake & Output 11/13/16 11/14/16 11/14/16 18:59 06:59 18:59 Intake Total 1473 903 Output Total 150 475 Balance 1323 428 Intake: IV Fluids 797 103 LR 797 103 IVPB 276 ABX - CLINDAMYCIN 176 ABX - LEVOFLOXACIN 100 Oral 400 800 Output: Ramirez 150 475 Laboratory Results - last 24 hr 11/14/16 11/14/16 11/14/16 06:13 06:13 06:13 Hgb 9.2 L Hct 28 L INR (Anticoag Therapy) 1.44 H Sodium 128 L Potassium 4.3 Chloride 101 Carbon Dioxide 24 Anion Gap 3 BUN 26 H Creatinine 1.16 Est GFR ( Amer) 78.3 Est GFR (Non-Af Amer) 60.9 BUN/Creatinine Ratio 22.4 H Glucose 113 H Calcium 8.1 L Left hip dressing was removed while in E-Z stand, scant old bloody drainage on dressing, incision benign, new 4x4s and tape applied. remains neuro intact distally LLE with active DF/PF Assessment: []s/p left hip hemiarthroplasty POD #2 Plan: []Continue to encourage OOB/ movement, PT/OT as able, WBAT LLE Heparin for DVT proph Continue to work on pain management rehab when medically stable follow up with Dr. Cardozo in 3 weeks in office
[2016-11-14] MEDS: Metoprolol Tartrate TAB* 50 mg PO SCH (10:29)
[2016-11-14] MEDS ORDERED: Sodium Citrate/Citric Acid* 15 ML UDC PO ONE (10:38)
[2016-11-14] MEDS: Metoprolol Tartrate TAB* 25 MG PO SCH (10:42)
--- NOTE | 2016-11-14 10:55 | PN ---
Subjective Date of Service: 11/14/16 Interval History: Pain level 8. More blood-tinged sputum during th enight. Some SOB. Objective Active Medications: Acetaminophen (Tylenol Tab*) 650 mg PO Q4H PRN PRN Reason: FEVER/PAIN Last Admin: 11/13/16 07:18 Dose: 650 mg Cyclobenzaprine HCl (Flexeril Tab*) 10 mg PO TID PRN PRN Reason: SPASMS Last Admin: 11/14/16 07:54 Dose: 10 mg Diphenhydramine HCl (Benadryl Iv*) 12.5 mg IV Q6H PRN PRN Reason: PRURITIS Docusate Sodium (Colace Cap*) 100 mg PO QAM [facility] Last Admin: 11/14/16 09:31 Dose: 100 mg Fentanyl (Duragesic Patch 25 Mcg/Hr*) 25 mcg TRANSDERM Q72H [facility] Last Admin: 11/11/16 23:08 Dose: 25 mcg Fentanyl (Duragesic Patch 12 Mcg/Hr *) 12 mcg TRANSDERM Q72H [facility] Last Admin: 11/11/16 23:12 Dose: 12 mcg Finasteride (Proscar Tab*) 5 mg PO QPM [facility] Last Admin: 11/13/16 17:34 Dose: 5 mg Furosemide (Lasix Tab*) 20 mg PO DAILY [facility] Heparin Sodium (Porcine) (Heparin Vial(*)) 5,000 units SUBCUT Q8HR [facility] Last Admin: 11/14/16 06:20 Dose: 5,000 units Hydromorphone HCl (Dilaudid Iv*) 1 mg IV SLOW PU Q2H PRN PRN Reason: PAIN Last Admin: 11/14/16 09:32 Dose: 1 mg Levofloxacin/Dextrose (Levaquin 500 Mg Ivpremix(*)) 500 mg in 100 mls @ 100 mls /hr IVPB Q24H [facility] Last Admin: 11/14/16 07:55 Dose: 100 mls/hr Lactated Ringer's (Lactated Ringers 1000 Ml Bag*) 1,000 mls @ 75 mls/hr IV PER RATE [facility] Last Admin: 11/13/16 20:24 Dose: 75 mls/hr Magnesium Oxide (Magox 400 Tab*) 400 mg PO QAM [facility] Last Admin: 11/14/16 09:31 Dose: 400 mg Metoprolol Tartrate (Lopressor Tab*) 25 mg PO DAILY [facility] Last Admin: 11/14/16 10:42 Dose: 25 mg Morphine Sulfate (Morphine Inj (Syringe)*) 5 mg IV Q3H PRN PRN Reason: PAIN Last Admin: 11/13/16 16:35 Dose: 5 mg Multivitamins (Theragran Tab*) 1 tab PO DAILY [facility] Last Admin: 11/14/16 09:31 Dose: 1 tab Omeprazole (Prilosec Cap*) 20 mg PO QAM [facility] Last Admin: 11/14/16 09:31 Dose: 20 mg Ondansetron HCl (Zofran Inj*) 4 mg IV Q6H PRN PRN Reason: NAUSEA Oxycodone HCl (Roxycodone Tab*) 5 mg PO Q4H PRN PRN Reason: PAIN Last Admin: 11/14/16 06:50 Dose: 5 mg Oxycodone/Acetaminophen (Percocet 5/325 Tab*) 1 tab PO Q3H PRN PRN Reason: PAIN - MODERATE Oxycodone/Acetaminophen (Percocet 5/325 Tab*) 2 tab PO Q3H PRN PRN Reason: PAIN - MODERATE Pharmacy Profile Note (Fentanyl Patch Check Q Shift) 1 note N/A 0700,1900 [facility] Last Admin: 11/14/16 06:53 Dose: 1 note Polyethylene Glycol/Electrolytes (Miralax*) 17 gm PO DAILY PRN PRN Reason: CONSTIPATION Senna (Senokot Tab*) 1 tab PO DAILY PRN PRN Reason: CONSTIPATION Last Admin: 11/14/16 09:32 Dose: 1 tab Tamsulosin HCl (Flomax Cap*) 0.4 mg PO 1700 [facility] Last Admin: 11/13/16 17:34 Dose: 0.4 mg Vital Signs 11/13/16 11/13/16 11/13/16 11:00 11:08 11:46 Temperature 98.2 F Pulse Rate 54 Respiratory 17 19 Rate Blood Pressure 117/57 (mmHg) O2 Sat by Pulse 97 Oximetry 11/13/16 11/13/16 11/13/16 12:00 13:00 13:13 Temperature Pulse Rate 59 61 Respiratory 20 21 23 Rate Blood Pressure 113/57 116/62 (mmHg) O2 Sat by Pulse 99 97 Oximetry 11/13/16 11/13/16 11/13/16 14:00 15:00 16:00 Temperature Pulse Rate 59 63 59 Respiratory 18 15 15 Rate Blood Pressure 95/46 101/53 102/55 (mmHg) O2 Sat by Pulse 100 100 100 Oximetry 11/13/16 11/13/16 11/13/16 16:35 16:59 17:00 Temperature Pulse Rate Respiratory 24 18 Rate Blood Pressure 115/60 (mmHg) O2 Sat by Pulse 98 Oximetry 11/13/16 11/13/16 11/13/16 17:45 18:00 18:56 Temperature 99.7 F Pulse Rate 60 60 Respiratory 16 14 20 Rate Blood Pressure 109/51 (mmHg) O2 Sat by Pulse 94 97 Oximetry 11/13/16 11/13/16 11/13/16 19:00 19:41 21:36 Temperature 99.5 F Pulse Rate 61 Respiratory 20 28 22 Rate Blood Pressure 100/48 (mmHg) O2 Sat by Pulse 96 Oximetry 11/13/16 11/13/16 11/14/16 22:36 23:27 00:00 Temperature 98.7 F Pulse Rate 60 Respiratory 20 14 Rate Blood Pressure 100/47 (mmHg) O2 Sat by Pulse 100 96 Oximetry 11/14/16 11/14/16 11/14/16 03:51 06:18 06:50 Temperature 98.5 F Pulse Rate 68 Respiratory 14 20 20 Rate Blood Pressure 96/44 (mmHg) O2 Sat by Pulse 100 Oximetry 11/14/16 11/14/16 11/14/16 07:18 07:29 07:54 Temperature 98.8 F Pulse Rate 62 Respiratory 18 14 16 Rate Blood Pressure 100/53 (mmHg) O2 Sat by Pulse 99 Oximetry 11/14/16 11/14/16 11/14/16 08:04 08:31 08:50 Temperature Pulse Rate Respiratory 18 18 Rate Blood Pressure (mmHg) O2 Sat by Pulse 98 98 Oximetry 11/14/16 11/14/16 11/14/16 09:32 09:54 10:32 Temperature Pulse Rate Respiratory 16 16 16 Rate Blood Pressure (mmHg) O2 Sat by Pulse Oximetry Oxygen Devices in Use Now: Nasal Cannula Appearance: Alert, in a chair. Soft neck collar in place. Eyes: No Scleral Icterus Neck: NL Appearance and Movements; NL JVP, No Thyroid Enlargement, Masses Respiratory: Symmetrical Chest Expansion and Respiratory Effort, - - Patient could not lean forward enough for me to listen to the base of his lungs. Lungs clear higher up and anteriorly Cardiovascular: NL Sounds; No Murmurs; No JVD, RRR, No Edema, - Extremities: No Edema, No Clubbing, Cyanosis, - Skin: No Rash or Ulcers, No Nodules or Sclerosis, - Neurological: Alert and Oriented x 3, NL Sensation Result Diagrams: 11/14/16 06:13 11/14/16 06:13 Additional Lab and Data: Lab Results 11/11/16 11/11/16 11/11/16 Range/Units 20:05 20:05 20:05 WBC 8.1 (3.5-10.8) 10^3/ul RBC 4.20 (4.0-5.4) 10^6/ul Hgb 13.6 L (14.0-18.0) g/dl Hct 42 (42-52) % MCV 99 H (80-94) fL MCH 32 H (27-31) pg MCHC 33 (31-36) g/dl RDW 13 (10.5-15) % Plt Count 162 (150-450) 10^3/ul MPV 8 (7.4-10.4) um3 Neut % (Auto) 84.5 H (38-83) % Lymph % (Auto) 8.1 L (25-47) % [place] % (Auto) 5.7 (1-9) % Eos % (Auto) 0.8 (0-6) % Baso % (Auto) 0.9 (0-2) % Absolute Neuts (auto) 6.9 (1.5-7.7) 10^3/ul Absolute Lymphs (auto) 0.7 L (1.0-4.8) 10^3/ul Absolute Monos (auto) 0.5 (0-0.8) 10^3/ul Absolute Eos (auto) 0.1 (0-0.6) 10^3/ul Absolute Basos (auto) 0.1 (0-0.2) 10^3/ul Absolute Nucleated RBC 0 10^3/ul Nucleated RBC % 0 Sodium 136 (133-145) mmol/L Potassium 3.9 (3.5-5.0) mmol/L Chloride 105 (101-111) mmol/L Carbon Dioxide 28 (22-32) mmol/L Anion Gap 3 (2-11) mmol/L BUN 20 (6-24) mg/dL Creatinine 1.06 (0.67-1.17) mg/dL Est GFR ( Amer) 86.9 (>60) Est GFR (Non-Af Amer) 67.6 (>60) BUN/Creatinine Ratio 18.9 (8-20) Glucose 104 H (70-100) mg/dL Lactic Acid 1.2 (0.5-2.0) mmol/L Calcium 9.0 (8.6-10.3) mg/dL Total Bilirubin 0.60 (0.2-1.0) mg/dL AST 23 (13-39) U/L ALT 18 (7-52) U/L Alkaline Phosphatase 80 (34-104) U/L C-Reactive Protein 6.60 H (< 5.00) mg/L B-Natriuretic Peptide ( - 100) pg/mL Total Protein 8.7 (6.4-8.9) g/dL Albumin 3.4 (3.2-5.2) g/dL Globulin 5.3 H (2-4) g/dL Albumin/Globulin Ratio 0.6 L (1-3) 11/11/16 Range/Units 20:05 WBC (3.5-10.8) 10^3/ul RBC (4.0-5.4) 10^6/ul Hgb (14.0-18.0) g/dl Hct (42-52) % MCV (80-94) fL MCH (27-31) pg MCHC (31-36) g/dl RDW (10.5-15) % Plt Count (150-450) 10^3/ul MPV (7.4-10.4) um3 Neut % (Auto) (38-83) % Lymph % (Auto) (25-47) % [place] % (Auto) (1-9) % Eos % (Auto) (0-6) % Baso % (Auto) (0-2) % Absolute Neuts (auto) (1.5-7.7) 10^3/ul Absolute Lymphs (auto) (1.0-4.8) 10^3/ul Absolute Monos (auto) (0-0.8) 10^3/ul Absolute Eos (auto) (0-0.6) 10^3/ul Absolute Basos (auto) (0-0.2) 10^3/ul Absolute Nucleated RBC 10^3/ul Nucleated RBC % Sodium (133-145) mmol/L Potassium (3.5-5.0) mmol/L Chloride (101-111) mmol/L Carbon Dioxide (22-32) mmol/L Anion Gap (2-11) mmol/L BUN (6-24) mg/dL Creatinine (0.67-1.17) mg/dL Est GFR ( Amer) (>60) Est GFR (Non-Af Amer) (>60) BUN/Creatinine Ratio (8-20) Glucose (70-100) mg/dL Lactic Acid (0.5-2.0) mmol/L Calcium (8.6-10.3) mg/dL Total Bilirubin (0.2-1.0) mg/dL AST (13-39) U/L ALT (7-52) U/L Alkaline Phosphatase (34-104) U/L C-Reactive Protein (< 5.00) mg/L B-Natriuretic Peptide 81 ( - 100) pg/mL Total Protein (6.4-8.9) g/dL Albumin (3.2-5.2) g/dL Globulin (2-4) g/dL Albumin/Globulin Ratio (1-3) Microbiology and Other Data: Microbiology 11/11/16 23:11 Nasal Screen MRSA (PCR)(KATINA) - Final Nasal Mrsa Positive Assess/Plan/Problems-Billing Assessment: - Patient Problems (1) CAD (coronary artery disease) Current Visit: Yes Status: Acute Code(s): I25.10 - ATHSCL HEART DISEASE OF [place] CORONARY ARTERY W/O ANG PCTRS SNOMED Code(s): 11986173 Comment: Echo no change in LVEF or wall motion abnormality since prior echo. Pulmonary HTN worse. Discussed with Dr. Thomas. Repeat troponin 11/13 was 0.08. No acute coronary event prior to surgery. (2) Hip fracture Current Visit: Yes Status: Acute Code(s): S72.009A - FRACTURE OF UNSP PART OF NECK OF UNSP FEMUR, INIT SNOMED Code(s): 308917240 Comment: Left hip. Ponce arthroplasty 11/12. Some difficulty with pain control, but concern over slow respirations which may be due to Jose Alejandro-Elena breathing and/or abdominal breathing. (3) Third degree heart block Current Visit: No Status: Acute Priority: High Onset Date: 04/04/14 Code (s): I44.2 - ATRIOVENTRICULAR BLOCK, COMPLETE SNOMED Code(s): 26348500 Comment: PPM in place. Has had pacer checks but no recent outpt cardiology fup. (4) Fever Current Visit: Yes Status: Acute Code(s): R50.9 - FEVER, UNSPECIFIED SNOMED Code(s): 821788584 Comment: Low grade fever. In view of hemoptysis and yellow sputum, start levofloxacin. CXR, urine C&S 11/13. CTA chest requested. (5) CHF (congestive heart failure) Current Visit: Yes Status: Acute Code(s): I50.9 - HEART FAILURE, UNSPECIFIED SNOMED Code(s): 82816031 Comment: CXR 11/13 shows pulmonary edema, could be related to perioperative IV fluids. Known mild decrease in CHF. Acute on chronic systolic CHF. IV furosemide 20 mg 11/14, start 20 mg po daily 11/15.
[2016-11-14] MEDS ORDERED: Iodixanol* (CONTRAST) 320 MG/ML 100 ML SDV IV ONE (11:36)
[2016-11-14] MEDS: oxyCODONE/Acetamin 5/325 MG* TAB PO PRN ×3 (13:03→23:28)
--- NOTE | 2016-11-14 15:20 | RAD ---
Indication: Shortness of breath, evaluate for pulmonary embolus. Contrast: Administered 84.2 ml of VISIPAQUE 320 mg/ml CTA of the chest was performed after IV contrast administration. Coronal and sagittal reconstructed images were obtained. The pulmonary arterial tree is well opacified. There is no evidence of filling defects present to suggest pulmonary embolus. There is scattered mediastinal lymph nodes measuring 3 to 5 mm in the AP window and right peritracheal space. Right hilar nodes are noted measuring up to 15 mm. Small left hilar lymph nodes are noted measuring up to 8 mm. The heart demonstrates no pericardial effusion. Small bilateral pleural effusions are noted. The trachea and major bronchi appear patent. The lung storey demonstrate emphysematous changes with some atelectasis of the low focal nodules are noted. Emphysematous bullae are noted bilaterally. IMPRESSION: NO DEFINITE PULMONARY EMBOLUS IS NOTED. SMALL PLEURAL EFFUSIONS ARE NOTED. EMPHYSEMATOUS CHANGES OF THE LUNG STOREY ARE NOTED.
[2016-11-14] MEDS: Finasteride TAB* 5 MG PO SCH (17:39)
[2016-11-14] MEDS: Tamsulosin CAP* 0.4 MG PO SCH (17:39)
[2016-11-14] MEDS: fentaNYL PATCH 12 MCG/HR TRANSDERM SCH (23:04)
[2016-11-14] MEDS: fentaNYL PATCH 25 MCG/HR TRANSDERM SCH (23:05)
[2016-11-15] MEDS: oxyCODONE/Acetamin 5/325 MG* TAB PO PRN ×2 (04:20→10:12)
[2016-11-15 05:18] LABS: Comments Flag Yes; Hematocrit 29 % (42-52); Hemoglobin 9.4 g/dl (14.0-18.0)
[2016-11-15] MEDS: oxyCODONE TAB* 5 MG TAB PO PRN (06:12)
[2016-11-15] MEDS: Heparin VIAL(*) 5000 UNITS/ML VIAL (FIVE THOUSAND) SUBCUT SCH ×2 (06:13→14:10)
[2016-11-15] MEDS: Cyclobenzaprine TAB* 10 MG PO PRN ×2 (06:13→11:54)
--- NOTE | 2016-11-15 07:58 | PN ---
Subjective Date of Service: 11/15/16 Interval History: Pain somewhat better today. Fair appetite. No BM since admission. No new c/o. Objective Active Medications: Acetaminophen (Tylenol Tab*) 650 mg PO Q4H PRN PRN Reason: FEVER/PAIN Last Admin: 11/13/16 07:18 Dose: 650 mg Cyclobenzaprine HCl (Flexeril Tab*) 10 mg PO TID PRN PRN Reason: SPASMS Last Admin: 11/15/16 06:13 Dose: 10 mg Diphenhydramine HCl (Benadryl Iv*) 12.5 mg IV Q6H PRN PRN Reason: PRURITIS Docusate Sodium (Colace Cap*) 100 mg PO QAM [facility] Last Admin: 11/14/16 09:31 Dose: 100 mg Fentanyl (Duragesic Patch 25 Mcg/Hr*) 25 mcg TRANSDERM Q72H [facility] Last Admin: 11/14/16 23:05 Dose: 25 mcg Fentanyl (Duragesic Patch 12 Mcg/Hr *) 12 mcg TRANSDERM Q72H [facility] Last Admin: 11/14/16 23:04 Dose: 12 mcg Finasteride (Proscar Tab*) 5 mg PO QPM [facility] Last Admin: 11/14/16 17:39 Dose: 5 mg Furosemide (Lasix Tab*) 20 mg PO DAILY [facility] Heparin Sodium (Porcine) (Heparin Vial(*)) 5,000 units SUBCUT Q8HR [facility] Last Admin: 11/15/16 06:13 Dose: 5,000 units Hydromorphone HCl (Dilaudid Iv*) 1 mg IV SLOW PU Q2H PRN PRN Reason: PAIN Last Admin: 11/14/16 20:26 Dose: 1 mg Levofloxacin/Dextrose (Levaquin 500 Mg Ivpremix(*)) 500 mg in 100 mls @ 100 mls /hr IVPB Q24H [facility] Last Admin: 11/14/16 07:55 Dose: 100 mls/hr Lactated Ringer's (Lactated Ringers 1000 Ml Bag*) 1,000 mls @ 75 mls/hr IV PER RATE [facility] Last Admin: 11/13/16 20:24 Dose: 75 mls/hr Magnesium Oxide (Magox 400 Tab*) 400 mg PO QAM [facility] Last Admin: 11/14/16 09:31 Dose: 400 mg Metoprolol Tartrate (Lopressor Tab*) 25 mg PO DAILY [facility] Last Admin: 11/14/16 10:42 Dose: 25 mg Morphine Sulfate (Morphine Inj (Syringe)*) 5 mg IV Q3H PRN PRN Reason: PAIN Last Admin: 11/13/16 16:35 Dose: 5 mg Multivitamins (Theragran Tab*) 1 tab PO DAILY [facility] Last Admin: 11/14/16 09:31 Dose: 1 tab Omeprazole (Prilosec Cap*) 20 mg PO QAM [facility] Last Admin: 11/14/16 09:31 Dose: 20 mg Ondansetron HCl (Zofran Inj*) 4 mg IV Q6H PRN PRN Reason: NAUSEA Oxycodone HCl (Roxycodone Tab*) 5 mg PO Q4H PRN PRN Reason: PAIN Last Admin: 11/15/16 06:12 Dose: 5 mg Oxycodone/Acetaminophen (Percocet 5/325 Tab*) 1 tab PO Q3H PRN PRN Reason: PAIN - MODERATE Oxycodone/Acetaminophen (Percocet 5/325 Tab*) 2 tab PO Q3H PRN PRN Reason: PAIN - MODERATE Last Admin: 11/15/16 04:20 Dose: 2 tab Pharmacy Profile Note (Fentanyl Patch Check Q Shift) 1 note N/A 0700,1900 [facility] Last Admin: 11/14/16 18:52 Dose: 1 note Polyethylene Glycol/Electrolytes (Miralax*) 17 gm PO BID [facility] Senna (Senokot Tab*) 1 tab PO DAILY PRN PRN Reason: CONSTIPATION Last Admin: 11/14/16 09:32 Dose: 1 tab Tamsulosin HCl (Flomax Cap*) 0.4 mg PO 1700 [facility] Last Admin: 11/14/16 17:39 Dose: 0.4 mg Vital Signs 11/14/16 11/14/16 11/14/16 07:54 08:04 08:31 Temperature Pulse Rate Respiratory 16 18 Rate Blood Pressure (mmHg) O2 Sat by Pulse 98 98 Oximetry 11/14/16 11/14/16 11/14/16 08:50 09:32 09:54 Temperature Pulse Rate Respiratory 18 16 16 Rate Blood Pressure (mmHg) O2 Sat by Pulse Oximetry 11/14/16 11/14/16 11/14/16 10:32 11:15 12:15 Temperature Pulse Rate Respiratory 16 16 16 Rate Blood Pressure (mmHg) O2 Sat by Pulse Oximetry 11/14/16 11/14/16 11/14/16 13:03 15:03 15:17 Temperature 98.2 F Pulse Rate 61 Respiratory 16 16 22 Rate Blood Pressure 120/59 (mmHg) O2 Sat by Pulse 98 Oximetry 11/14/16 11/14/16 11/14/16 15:23 16:00 17:23 Temperature Pulse Rate Respiratory 16 16 Rate Blood Pressure (mmHg) O2 Sat by Pulse 98 Oximetry 11/14/16 11/14/16 11/14/16 19:14 20:22 20:26 Temperature 97.6 F Pulse Rate 62 Respiratory 22 12 15 Rate Blood Pressure 114/57 (mmHg) O2 Sat by Pulse 100 Oximetry 11/14/16 11/14/16 11/14/16 21:26 22:22 23:04 Temperature Pulse Rate Respiratory 15 15 17 Rate Blood Pressure (mmHg) O2 Sat by Pulse Oximetry 11/14/16 11/14/16 11/14/16 23:05 23:23 23:28 Temperature 98.1 F Pulse Rate 60 Respiratory 17 22 12 Rate Blood Pressure 118/50 (mmHg) O2 Sat by Pulse 98 Oximetry 11/15/16 11/15/16 11/15/16 01:28 01:54 04:20 Temperature Pulse Rate Respiratory 15 16 Rate Blood Pressure (mmHg) O2 Sat by Pulse 98 Oximetry 11/15/16 11/15/16 11/15/16 06:12 06:13 06:20 Temperature Pulse Rate Respiratory 14 15 15 Rate Blood Pressure (mmHg) O2 Sat by Pulse Oximetry Oxygen Devices in Use Now: Nasal Cannula Appearance: Alert, supine in bed. In fair spirits. Looks comfortable. Neck: NL Appearance and Movements; NL JVP, No Thyroid Enlargement, Masses Respiratory: Symmetrical Chest Expansion and Respiratory Effort, Clear to Auscultation, Clear to Percussion Cardiovascular: NL Sounds; No Murmurs; No JVD, RRR, No Edema, - Extremities: No Edema, No Clubbing, Cyanosis, - Skin: No Rash or Ulcers, No Nodules or Sclerosis, - Neurological: Alert and Oriented x 3, NL Sensation Result Diagrams: 11/15/16 04:53 11/14/16 06:13 Additional Lab and Data: Lab Results 11/11/16 11/11/16 11/11/16 Range/Units 20:05 20:05 20:05 WBC 8.1 (3.5-10.8) 10^3/ul RBC 4.20 (4.0-5.4) 10^6/ul Hgb 13.6 L (14.0-18.0) g/dl Hct 42 (42-52) % MCV 99 H (80-94) fL MCH 32 H (27-31) pg MCHC 33 (31-36) g/dl RDW 13 (10.5-15) % Plt Count 162 (150-450) 10^3/ul MPV 8 (7.4-10.4) um3 Neut % (Auto) 84.5 H (38-83) % Lymph % (Auto) 8.1 L (25-47) % [place] % (Auto) 5.7 (1-9) % Eos % (Auto) 0.8 (0-6) % Baso % (Auto) 0.9 (0-2) % Absolute Neuts (auto) 6.9 (1.5-7.7) 10^3/ul Absolute Lymphs (auto) 0.7 L (1.0-4.8) 10^3/ul Absolute Monos (auto) 0.5 (0-0.8) 10^3/ul Absolute Eos (auto) 0.1 (0-0.6) 10^3/ul Absolute Basos (auto) 0.1 (0-0.2) 10^3/ul Absolute Nucleated RBC 0 10^3/ul Nucleated RBC % 0 Sodium 136 (133-145) mmol/L Potassium 3.9 (3.5-5.0) mmol/L Chloride 105 (101-111) mmol/L Carbon Dioxide 28 (22-32) mmol/L Anion Gap 3 (2-11) mmol/L BUN 20 (6-24) mg/dL Creatinine 1.06 (0.67-1.17) mg/dL Est GFR ( Amer) 86.9 (>60) Est GFR (Non-Af Amer) 67.6 (>60) BUN/Creatinine Ratio 18.9 (8-20) Glucose 104 H (70-100) mg/dL Lactic Acid 1.2 (0.5-2.0) mmol/L Calcium 9.0 (8.6-10.3) mg/dL Total Bilirubin 0.60 (0.2-1.0) mg/dL AST 23 (13-39) U/L ALT 18 (7-52) U/L Alkaline Phosphatase 80 (34-104) U/L C-Reactive Protein 6.60 H (< 5.00) mg/L B-Natriuretic Peptide ( - 100) pg/mL Total Protein 8.7 (6.4-8.9) g/dL Albumin 3.4 (3.2-5.2) g/dL Globulin 5.3 H (2-4) g/dL Albumin/Globulin Ratio 0.6 L (1-3) 11/11/ Range/Units 20:05 WBC (3.5-10.8) 10^3/ul RBC (4.0-5.4) 10^6/ul Hgb (14.0-18.0) g/dl Hct (42-52) % MCV (80-94) fL MCH (27-31) pg MCHC (31-36) g/dl RDW (10.5-15) % Plt Count (150-450) 10^3/ul MPV (7.4-10.4) um3 Neut % (Auto) (38-83) % Lymph % (Auto) (25-47) % [place] % (Auto) (1-9) % Eos % (Auto) (0-6) % Baso % (Auto) (0-2) % Absolute Neuts (auto) (1.5-7.7) 10^3/ul Absolute Lymphs (auto) (1.0-4.8) 10^3/ul Absolute Monos (auto) (0-0.8) 10^3/ul Absolute Eos (auto) (0-0.6) 10^3/ul Absolute Basos (auto) (0-0.2) 10^3/ul Absolute Nucleated RBC 10^3/ul Nucleated RBC % Sodium (133-145) mmol/L Potassium (3.5-5.0) mmol/L Chloride (101-111) mmol/L Carbon Dioxide (22-32) mmol/L Anion Gap (2-11) mmol/L BUN (6-24) mg/dL Creatinine (0.67-1.17) mg/dL Est GFR ( Amer) (>60) Est GFR (Non-Af Amer) (>60) BUN/Creatinine Ratio (8-20) Glucose (70-100) mg/dL Lactic Acid (0.5-2.0) mmol/L Calcium (8.6-10.3) mg/dL Total Bilirubin (0.2-1.0) mg/dL AST (13-39) U/L ALT (7-52) U/L Alkaline Phosphatase (34-104) U/L C-Reactive Protein (< 5.00) mg/L B-Natriuretic Peptide 81 ( - 100) pg/mL Total Protein (6.4-8.9) g/dL Albumin (3.2-5.2) g/dL Globulin (2-4) g/dL Albumin/Globulin Ratio (1-3) Microbiology and Other Data: Microbiology 11/11/16 23:11 Nasal Screen MRSA (PCR)([facility]) - Final Nasal Mrsa Positive Assess/Plan/Problems-Billing Assessment: - Patient Problems (1) CAD (coronary artery disease) Current Visit: Yes Status: Acute Code(s): I25.10 - ATHSCL HEART DISEASE OF [place] CORONARY ARTERY W/O ANG PCTRS SNOMED Code(s): 88586273 Comment: Echo no change in LVEF or wall motion abnormality since prior echo. Pulmonary HTN worse. Discussed with Dr. Thomas. Repeat troponin 11/13 was 0.08. No acute coronary event prior to surgery. (2) Hip fracture Current Visit: Yes Status: Acute Code(s): S72.009A - FRACTURE OF UNSP PART OF NECK OF UNSP FEMUR, INIT SNOMED Code(s): 781903535 Comment: Left hip. Ponce arthroplasty 11/12. Some difficulty with pain control, but concern over slow respirations which may be due to Jose Alejandro-Elena breathing and/or abdominal breathing. (3) Third degree heart block Current Visit: No Status: Acute Priority: High Onset Date: 04/04/14 Code (s): I44.2 - ATRIOVENTRICULAR BLOCK, COMPLETE SNOMED Code(s): 01318998 Comment: PPM in place. Has had pacer checks but no recent outpt cardiology fup. (4) Fever Current Visit: Yes Status: Acute Code(s): R50.9 - FEVER, UNSPECIFIED SNOMED Code(s): 445490924 Comment: Low grade fever. In view of hemoptysis and yellow sputum, start levofloxacin. CXR, urine C&S 11/13. CTA chest requested. (5) CHF (congestive heart failure) Current Visit: Yes Status: Acute Code(s): I50.9 - HEART FAILURE, UNSPECIFIED SNOMED Code(s): 95546177 Comment: CXR 11/13 shows pulmonary edema, could be related to perioperative IV fluids. Known mild decrease in CHF. Acute on chronic systolic CHF. Continue furosemide 20 mg po daily. CMP and BNP 11/16. (6) Constipation Current Visit: Yes Status: Acute Code(s): K59.00 - CONSTIPATION, UNSPECIFIED SNOMED Code(s): 31936544 Comment: Scheduled PEG. Received 1 dose PM 11/14. (7) Hypoalbuminemia Current Visit: Yes Status: Acute Code(s): E88.09 - OTH DISORDERS OF PLASMA- PROTEIN METABOLISM, NEC SNOMED Code(s): 886409950 Comment: Last albumin level 2013. CMP 11/16.
[2016-11-15] MEDS: fentaNYL Patch Check Q Shift 1 NOTE SCH (08:00)
[2016-11-15] MEDS ORDERED: Polyethylene Glycol 3350* 17 GM PACKET PO SCH (09:00)
[2016-11-15] MEDS ORDERED: Furosemide TAB* 20 MG PO SCH (09:00)
[2016-11-15] MEDS: Levofloxacin 500 MG IVPREMIX(* 500 MG/100 ML BAG IVPB SCH (10:11)
[2016-11-15] MEDS: Magnesium Oxide TAB* 400 MG PO SCH (10:12)
[2016-11-15] MEDS: Metoprolol Tartrate TAB* 25 MG PO SCH (10:12)
[2016-11-15] MEDS: Omeprazole CAP* 20 MG PO SCH (10:12)
[2016-11-15] MEDS: Vitamin THERAPEUTIC TAB PO SCH (10:12)
[2016-11-15] MEDS: Docusate CAP* 100 MG PO SCH (10:12)
--- NOTE | 2016-11-15 10:41 | PN ---
Progress Note - Progress Note Date of Service: 11/15/16 SOAP: Subjective: []Patient seen OOB in chair, seems to be a little less anxious. Pain control overall has been an issue since admission. He seems comfortable in chair currently. Objective: [] Vital Signs Temp 97.8 F 11/15/16 08:00 Pulse 68 11/15/16 08:00 Resp 16 11/15/16 10:12 BP 130/51 11/15/16 08:00 Pulse Ox 95 11/15/16 08:00 Intake & Output 11/14/16 11/15/16 11/15/16 18:59 06:59 18:59 Intake Total 1161 650 440 Output Total 975 1025 Balance 186 -375 440 Weight 241 lb Intake: IV Fluids 1071 ABX - LEVOFLOXACIN 105 LR 966 Oral 90 650 440 Output: Urine 1025 Ramirez 975 Other: # Bowel Movements 0 Laboratory Results - last 24 hr 11/15/16 11/15/16 04:53 04:53 Hgb 9.4 L Hct 29 L INR (Anticoag Therapy) 1.63 H Left hip incision is benign, scan serosanguenous drainage on 4x4s thigh with moderate edema calf non tender +DF/PF left ankle Assessment: []s/p left hip hemiarthroplasty for femoral neck fracture Plan: []Continue to encourage OOB and standing, WBAT LLE Rehab bed when available Follow up with Dr. Cardozo in 3 weeks after discharge.
[2016-11-15 11:57] VITALS: BP 128/47
[2016-11-15] MEDS ORDERED: oxyCODONE TAB* 5 MG TAB PO PRN (12:37)
[2016-11-15] MEDS ORDERED: Magnesium Hydroxide LIQ* 30 ML UDC PO PRN (12:38)
--- NOTE | 2016-11-15 12:54 | PN ---
Progress Note - Progress Note Date of Service: 11/15/16 Note: Time spent on discharge 55 minutes.
[2016-11-15] MEDS ORDERED: Metoprolol Tartrate TAB* 25 MG PO SCH (21:00)
--- NOTE | 2016-11-16 04:56 | TRS ---
CC: Dr. Mason Alonso; Dr. Cardozo * DISCHARGE SUMMARY: DATE OF ADMISSION: DATE OF DISCHARGE: 11/15/16 HISTORY: This 80-year-old man presented after a fall. He had a fracture of his left hip. The history is detailed in the admission note. The following day, 11/12/16, he had left hemiarthroplasty by Dr. Cardozo. He had a lot of pain both before and after the operation. He also coughed up some blood. He had some yellowish sputum. Chest x-ray was compatible with congestive heart failure. His BNP was over 300, it had been elevated at times in the past. He had a transthoracic echocardiogram on 11/11/16 before surgery, which showed ejection fraction of 45% to 50% consistent with his previous echo. There was really no change. Dr. Thomas saw him in consultation and felt despite his minimally elevated troponin, he was suitable for surgery. He did get some hypoxia postop and I thought that likely the fluids given in the perioperative period had caused acute on chronic systolic heart failure. I gave him a dose of IV furosemide and an oral furosemide daily. He is also started on warfarin as DVT prophylaxis following his hip surgery. He was given levofloxacin for probable bronchitis with his yellow sputum production. He can finish his levofloxacin on 11/20/16. I would recommend an INR on 11/19/16. He should have daily weights. FINAL DIAGNOSES: 1. Left hip fracture, status post hemiarthroplasty, 11/12/16. 2. Coronary artery disease. 3. Congestive heart failure. 4. Third-degree heart block, status post pacemaker. 5. Constipation. 6. Hyperalbuminemia. DISCHARGE MEDICATIONS: 1. Warfarin 2 mg daily at 5 p.m. 2. Acetaminophen 650 mg every 4 hours p.r.n. 3. Cyclobenzaprine 10 mg t.i.d. p.r.n. 4. Furosemide 20 mg daily. 5. Levofloxacin 500 mg daily through 11/20/16. 6. Milk of magnesia 60 mL daily p.r.n. constipation. 7. Metoprolol tartrate 12.5 mg b.i.d. 8. Polyethylene glycol 17 g b.i.d. 9. Multivitamin 1 daily. 10. Fentanyl patch 25 plus 12 mcg every 72 hours. 11. Oxycodone 5 mg every 3 hours p.r.n. moderate pain, 10 mg every 3 hours p.r.n. severe pain. [id number]/[facility] #: [id number] MTDD
[2016-11-16] MEDS ORDERED: Levofloxacin TAB* 500 MG PO SCH (08:00)
== END 2016-11-15 14:00 | DRG 469 ==
LOC: ED 18:29 → SSU 21:28 → ICU 11-12 17:43 → SSU 11-13 17:42
PROVIDERS: ADMIT Internal Medicine; ATTEND Internal Medicine
PROC: 0SRS019 Replacement of Left Hip Joint, Femoral Surface with Metal Synthetic Substitute, Cemented, Open Approach (ICD-10-PCS; principal; 2016-11-12 11:15)
DX: S72.002A Fracture of unspecified part of neck of left femur, initial encounter for closed fracture (principal); I50.23 Acute on chronic systolic (congestive) heart failure; I44.2 Atrioventricular block, complete; M48.56XA Collapsed vertebra, not elsewhere classified, lumbar region, initial encounter for fracture; R04.2 Hemoptysis; I13.0 Hypertensive heart and chronic kidney disease with heart failure and stage 1 through stage 4 chronic kidney disease, or unspecified chronic kidney disease; I27.2 Other secondary pulmonary hypertension; I25.10 Atherosclerotic heart disease of native coronary artery without angina pectoris; E78.5 Hyperlipidemia, unspecified; E78.00 Pure hypercholesterolemia, unspecified; K21.9 Gastro-esophageal reflux disease without esophagitis; N40.0 Benign prostatic hyperplasia without lower urinary tract symptoms; M06.9 Rheumatoid arthritis, unspecified; H91.90 Unspecified hearing loss, unspecified ear; H26.9 Unspecified cataract; I48.91 Unspecified atrial fibrillation; G89.29 Other chronic pain; N20.0 Calculus of kidney; N21.0 Calculus in bladder; I44.7 Left bundle-branch block, unspecified; E66.9 Obesity, unspecified; I08.3 Combined rheumatic disorders of mitral, aortic and tricuspid valves; N18.9 Chronic kidney disease, unspecified; R50.9 Fever, unspecified; K59.00 Constipation, unspecified; J40 Bronchitis, not specified as acute or chronic; R09.02 Hypoxemia; W18.30XA Fall on same level, unspecified, initial encounter; Y93.01 Activity, walking, marching and hiking; Y92.9 Unspecified place or not applicable; I25.2 Old myocardial infarction; Z95.0 Presence of cardiac pacemaker; Z87.891 Personal history of nicotine dependence; Z79.01 Long term (current) use of anticoagulants; Z83.3 Family history of diabetes mellitus; Z88.1 Allergy status to other antibiotic agents; Z88.8 Allergy status to other drugs, medicaments and biological substances; Z88.2 Allergy status to sulfonamides; Z95.5 Presence of coronary angioplasty implant and graft; Z86.718 Personal history of other venous thrombosis and embolism; Z86.711 Personal history of pulmonary embolism; Z80.6 Family history of leukemia; Z68.31 Body mass index [BMI] 31.0-31.9, adult
CPT/HCPCS: 36415; 71010; 71275; 72170; 72192; 80048; 80053; 81003; 81015; 83605; 83735; 83880; 84484; 85014; 85018; 85025; 85610; 86140; 86850; 86900; 86901; 87086; 87641; 88305; 88311; 93005; 93306; 94760; 96374; 96375; 99284; A9270-GY; C1776; C8929; J0330; J0690; J1170; J1644; J1940; J1956; J2060; J2270; J2360; J2405; J3010; Q9967

== ENCOUNTER 2018-05-08 09:00 | Observation (INO) | payer MEDICARE, OTHER ==
[2018-05-08] MEDS ORDERED: Ondansetron INJ* 2 MG/ML VIAL IV ONE (09:22)
[2018-05-08] MEDS ORDERED: Aspirin 81 mg CHEW TAB* 81 MG TAB.CHEW PO ONE (09:36)
[2018-05-08 10:06] LABS: Influenza A Molecular NEGATIVE (Negative); Influenza B Molecular NEGATIVE (Negative)
[2018-05-08 10:07] LABS: ABS Basophils 0 10^3/ul (0-0.2); ABS Eosinophils 0.3 10^3/ul (0-0.6); ABS Lymphocytes 0.9 10^3/ul (1.0-4.8); ABS Monocytes 0.9 10^3/ul (0-0.8); ABS Neutrophils 2.5 10^3/ul (1.5-7.7); ABS Nucleated RBC 0 10^3/ul; Eosinophil % 7.2 %; Hematocrit 40 % (42-52); Hemoglobin 13.3 g/dl (14.0-18.0); Lymphocyte % 19.2 %; Mean Corpuscular HGB Conc 33 g/dl (31-36); Mean Corpuscular Hemoglobin 33 pg (27-31); Mean Corpuscular Volume 98 fL (80-94); Mean Platelet Volume 7.9 fL (7.4-10.4); Nucleated Red Blood Cells % 0; Platelet Count 188 10^3/ul (150-450); Red Blood Count 4.07 10^6/ul (4.00-5.40); Red Cell Distribution Width 13 % (10.5-15); White Blood Count 4.7 10^3/ul (3.5-10.8)
[2018-05-08 10:20] LABS: Activated Partial Thrombo Time 24.2 seconds (26.0-36.3)
[2018-05-08 10:27] LABS: Troponin I 0.02 ng/mL (<0.04)
[2018-05-08 10:44] LABS: TSH (Thyroid Stimulating Horm) 1.06 mcIU/mL (0.34-5.60)
[2018-05-08] MEDS ORDERED: Albuterol/Ipratropium NEB.SOL* Albuterol 2.5 MG/Ipratropium 0.5 MG 3 ML INH ONE (10:44)
--- NOTE | 2018-05-08 11:07 | ED ---
HPI Chest Pain - HPI Summary HPI Summary: Patient presents with worsening of chest pain, shortness of breath and cough over the past month. Chest pain worse w/ exertion. Denies new onset numbness/ tingling but reports chronic LE paresthesias since femur fx last year - does not ambulate but rather use a wheelchair. No LE edema. She struggles with intermittent nausea which she is having this morning - has not taken his home Zofran prior to arrival but did take 2 baby aspirin. EMS reported him at 94% oxygen on room air however nursing found him to be in the high 80's on room air. He is currently in the high 90's on 2 L nasal cannula. Denies use of oxygen at home nor does he have any known pulmonary conditions - does not use inhaled medications. H/o smoking and 2nd hand smoke. Does have a history of cardiac pathology requiring 2 stents as well as a pacemaker. Also has h/o MRSA sepsis. Due to being on a ventilator during this sepsis episode, he had a filter placed to prevent clots from traveling from his lower extremities however denies history of PE. He thinks he has pneumonia today and has been taking Robitussin which he reports has been keeping his cough is loose and productive. Subjective fever - denies chills. Denies recent nasal congestion, sore throat, ear fullness, headache, neck pain or stiffness. Reports chronic, intermittent Rt inguinal/RLQ pain - was recommended he have a colonoscopy in the past but has declined. These sx are not new today. Denies melena, hematochezia and moving bowels as usual (last BM 2 days ago - normal for him). No urinary sx. Has not taken home meds prior to arrival. - History of Current Complaint Chief Complaint: EDShortnessOfBreath Time Seen by Provider: 05/08/18 09:03 Hx Obtained From: Patient, Family/Ingot Caster - daughter Pain Intensity: 5 - Additional Pertinent History Primary Care Physician: [id number] - Allergy/Home Medications Allergies/Adverse Reactions: Allergies Allergy/AdvReac Type Severity Reaction Status Date / Time amoxicillin Allergy Rash And Verified 05/08/18 09:28 Itching methotrexate Allergy Altered Verified 05/08/18 09:28 Mental Status Sulfa (Sulfonamide Allergy Rash Verified 05/08/18 09:28 Antibiotics) Home Medications: Home Medications Cyclobenzaprine TAB* [Flexeril 10 MG TAB*] 5 mg PO TID PRN 05/08/18 [History Confirmed 05/08/18] Docusate Sodium [Colace] 100 mg PO DAILY 05/08/18 [History Confirmed 05/08/18] Furosemide TAB* [Lasix TAB*] 20 mg PO SEE INSTRUCTIONS 05/08/18 [History Confirmed 05/08/18] Lisinopril 20 mg PO DAILY 05/08/18 [History Confirmed 05/08/18] Metoprolol Tartrate TAB* [Lopressor TAB*] 25 mg PO BID 05/08/18 [History Confirmed 05/08/18] Senna TAB* 1 tab PO DAILY PRN 05/08/18 [History Confirmed 05/08/18] Zofran 4 MG Odt TAB* 1 tab PO BID PRN 05/08/18 [History Confirmed 05/08/18] PMH/Surg Hx/FS Hx/Imm Hx Previously Healthy: Yes Endocrine/Hematology History: Denies: Hx Anticoagulant Therapy, Hx Blood Disorders, Hx Diabetes Cardiovascular History: Reports: Hx Angina, Hx Coronary Artery Disease, Hx Hypercholesterolemia - HLD, Hx Hypertension, Hx Myocardial Infarction, Hx Pacemaker/ICD, Other Cardiovascular Problems/Disorders - CARDIAC CATH WITH 2 STENTS Denies: Hx Congestive Heart Failure, Hx Valvular Heart Disease Respiratory History: Reports: Hx Pneumonia, Other Respiratory Problems/ Disorders - [place] [facility] [place] [id number] HAD PN Denies: Hx Asthma, Hx Chronic Obstructive Pulmonary Disease (COPD) GI History: Reports: Hx Gastroesophageal Reflux Disease, Other GI Disorders - has been referred for colonoscopy, but declined History: Reports: Hx Benign Prostatic Hyperplasia, Hx Chronic Renal Failure - CKD, Hx Kidney Stones - HX- APPROX 2010, Hx Renal Disease - CKD Denies: Hx Dialysis, Other Problems/Disorders Musculoskeletal History: Reports: Hx Arthritis - RHEUMATOID, Hx Back Problems - CHRONIC Sensory History: Reports: Hx Cataracts, Hx Contacts or Glasses - GLASSES, Hx Hearing Problem - a bit hard of hearing Denies: Hx Hearing Aid Opthamlomology History: Reports: Hx Cataracts, Hx Contacts or Glasses - GLASSES Neurological History: Reports: Other Neuro Impairments/Disorders - SJOGERNS/ FORGETFULLNESS Psychiatric History: Reports: Hx Depression Denies: Hx Panic Disorder - Surgical History Surgery Procedure, Year, and Place: LUMBAR [place]AM[place]ECTOMY L3[place]4 [facility] [place] [facility] [place] 2-CARDIAC STENTS 1999- [employer]. 03/28- PACEMAKER [place]ION- [facility] [place] LEFT HIP HEMIARTHROPLASTY 11/12/16 Hx Anesthesia Reactions: No - Immunization History Date of Tetanus Vaccine: More than 10 years ago Date of Influenza Vaccine: Not since age 67 and patient refuses Infectious Disease History: No Infectious Disease History: Reports: Hx of Known/Suspected MRSA Denies: Traveled Outside the [place] in Last 30 Days - Family History Known Family History: Positive: Diabetes, Other - cancer - Social History Alcohol Use: None Hx Substance Use: No Substance Use Type: Reports: None Hx Tobacco Use: Yes - not currently Smoking Status (MU): Former Smoker Amount Used/How Often: 1 PPD FROM AGE 19 Have You Smoked in the Last Year: No Review of Systems Positive: Fever - subjective, Fatigue. Negative: Chills Eyes: Negative ENT: Negative Positive: Chest Pain. Negative: Palpitations Positive: Shortness Of Breath, Cough Positive: Nausea Positive: no symptoms reported Musculoskeletal: Negative Skin: Negative Neurological: Negative Positive: Anxious All Other Systems Reviewed And Are Negative: Yes Physical Exam Triage Information Reviewed: Yes Vital Signs On Initial Exam: Initial Vitals Pulse Resp Pulse Ox 68 29 98 05/08/18 09:12 05/08/18 09:12 05/08/18 09:12 Vital Signs Reviewed: Yes Appearance: Positive: Well-Nourished, Ill-Appearing - appears fatigued with transitioning himself - SOB but recovers, Pain Distress - appears uncomfortable but consolable Skin: Positive: Warm, Skin Color Reflects Adequate Perfusion, Dry - no erythema , no ecchymosis Head/Face: Positive: Normal Head/Face Inspection Eyes: Positive: Normal, EOMI, ROZ, Conjunctiva Clear ENT: Positive: Normal ENT inspection, Hearing grossly normal, Pharynx normal - mucosa dry, TMs normal, Uvula midline. Negative: Nasal congestion, Tonsillar swelling, Tonsillar exudate, Trismus, Muffled voice, Hoarse voice, Sinus tenderness Neck: Positive: Supple, Nontender, No Lymphadenopathy Respiratory/Lung Sounds: Positive: Breath Sounds Present, Rales - soft rubbing throughout chest. Negative: Decreased Breath Sounds, Rhonchi, Subcutaneous Emphysema, Stridor, Wheezes, Unable to speak in full sentences, Fatigue Cardiovascular: Positive: RRR, Murmur - ?, S1, S2. Negative: Leg Edema Left, Leg Edema Right Abdomen Description: Positive: Soft - reports TTP anywhere I palpate - no rebounding Bowel Sounds: Positive: Present Musculoskeletal: Positive: Other - can move UE's and LE's while in bed - reports he needs to lie on Rt side d/t chronic Lt hip pain - he was able to transition himself from EMS stretcher to bed upon arrival Neurological: Positive: Normal, Sensory/Motor Intact, Alert, Oriented to Person Place, Time, CN Intact II-III Psychiatric: Positive: Normal - [place] Coma Scale Best Eye Response: 4 - Spontaneous Best Motor Response: 6 - Obeys Commands Best Verbal Response: 5 - Oriented Coma Scale Total: 15 Diagnostics - Vital Signs Vital Signs Temp Pulse Resp BP Pulse Ox 05/08/18 10:45 66 18 100 05/08/18 10:31 66 21 147/86 98 05/08/18 10:15 76 22 160/101 97 05/08/18 10:02 68 13 164/93 99 05/08/18 10:00 69 18 99 05/08/18 09:17 98 05/08/18 09:13 98.1 F 81 25 188/96 89 05/08/18 09:12 68 29 98 - Laboratory Lab Results: Lab Results 05/08/18 05/08/18 05/08/18 Range/Units 09:05 09:05 09:05 WBC 4.7 (3.5-10.8) 10^3/ul RBC 4.07 (4.00-5.40) 10^6/ul Hgb 13.3 L (14.0-18.0) g/dl Hct 40 L (42-52) % MCV 98 H (80-94) fL MCH 33 H (27-31) pg MCHC 33 (31-36) g/dl RDW 13 (10.5-15) % Plt Count 188 (150-450) 10^3/ul MPV 7.9 (7.4-10.4) fL Neut % (Auto) 52.6 % Lymph % (Auto) 19.2 % [place] % (Auto) 20.0 % Eos % (Auto) 7.2 % Baso % (Auto) 1.0 % Absolute Neuts (auto) 2.5 (1.5-7.7) 10^3/ul Absolute Lymphs (auto) 0.9 L (1.0-4.8) 10^3/ul Absolute Monos (auto) 0.9 H (0-0.8) 10^3/ul Absolute Eos (auto) 0.3 (0-0.6) 10^3/ul Absolute Basos (auto) 0 (0-0.2) 10^3/ul Absolute Nucleated RBC 0 10^3/ul Nucleated RBC % 0 INR (Anticoag Therapy) 1.00 (0.77-1.02) APTT 24.2 L (26.0-36.3) seconds D-Dimer, Quantitative > 1050 H (Less Than 230) ng/mL Sodium Pending Potassium Pending Chloride Pending Carbon Dioxide Pending Anion Gap Pending BUN Pending Creatinine Pending Est GFR ( Amer) Pending Est GFR (Non-Af Amer) Pending BUN/Creatinine Ratio Pending Glucose Pending Lactic Acid (0.5-2.0) mmol/L Calcium Pending Magnesium Pending Total Bilirubin Pending AST Pending ALT Pending Alkaline Phosphatase Pending Troponin I 0.02 (<0.04) ng/mL B-Natriuretic Peptide (<=100) pg/mL Total Protein Pending Albumin Pending Globulin Pending Albumin/Globulin Ratio Pending TSH 1.06 (0.34-5.60) mcIU/mL Influenza A (Rapid) (Negative) Influenza B (Rapid) (Negative) 05/08/18 05/08/18 05/08/18 Range/Units 09:05 09:05 09:55 WBC (3.5-10.8) 10^3/ul RBC (4.00-5.40) 10^6/ul Hgb (14.0-18.0) g/dl Hct (42-52) % MCV (80-94) fL MCH (27-31) pg MCHC (31-36) g/dl RDW (10.5-15) % Plt Count (150-450) 10^3/ul MPV (7.4-10.4) fL Neut % (Auto) % Lymph % (Auto) % [place] % (Auto) % Eos % (Auto) % Baso % (Auto) % Absolute Neuts (auto) (1.5-7.7) 10^3/ul Absolute Lymphs (auto) (1.0-4.8) 10^3/ul Absolute Monos (auto) (0-0.8) 10^3/ul Absolute Eos (auto) (0-0.6) 10^3/ul Absolute Basos (auto) (0-0.2) 10^3/ul Absolute Nucleated RBC 10^3/ul Nucleated RBC % INR (Anticoag Therapy) (0.77-1.02) APTT (26.0-36.3) seconds D-Dimer, Quantitative (Less Than 230) ng/mL Sodium Potassium Chloride Carbon Dioxide Anion Gap BUN Creatinine Est GFR ( Amer) Est GFR (Non-Af Amer) BUN/Creatinine Ratio Glucose Lactic Acid 0.9 (0.5-2.0) mmol/L Calcium Magnesium Total Bilirubin AST ALT Alkaline Phosphatase Troponin I (<0.04) ng/mL B-Natriuretic Peptide 125 H (<=100) pg/mL Total Protein Albumin Globulin Albumin/Globulin Ratio TSH (0.34-5.60) mcIU/mL Influenza A (Rapid) Negative (Negative) Influenza B (Rapid) Negative (Negative) Result Diagrams: 05/08/18 09:05 05/08/18 09:05 Lab Statement: Any lab studies that have been ordered have been reviewed, and results considered in the medical decision making process. Re-Evaluation - Re-Evaluation First Eval Change: Unchanged - no relief in chest pain s/p duoneb Chest Pain Course/Dx - Course Course Of Treatment: CXR: COPD, cardiomegaly, fibrotic changes. ECG: AV dual paced at 60bpm. Pt initially appears anxious w/ elevated BP - nitro held as concern for PNA w/ h/o sepsis - BP eventually dropped w/o intervention. Labs and imaging are less suspicious for PNA and repeated findings of fibrotic dz are identified. 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 Ddimer >1050 hence CTA. BNP 100's. Trop neg x 2. CRP 30.28. Lactic and WBC WNL. H&H stable. Influenza neg. CTA: Impression: "#1. No evidence for pulmonary embolism. #2. Emphysema and interstitial fibrosis with peripheral honeycombing without significant interval change. No new alveolar consolidation or suspicion focal pulmonary lesion. Negative for pleural effusion or pneumothorax. #3. Evidence for tracheomalacia". Discussed case w / Dr. Pack who will admit for CP, stress test. Also explained to pt an daughter chronic findings of pulm dz - will need f/u w/ pulm - pt and daughter agree w/ plan. Stable at time of transition of care. - Diagnoses Provider Diagnoses: Chest pain on exertion, Chronic lung disease Discharge - Sign-Out/Discharge Documenting (check all that apply): Patient Departure - Discharge Plan Condition: Stable Disposition: ADMITTED TO [facility] - Billing Disposition and Condition Condition: STABLE Disposition: Admitted to [facility]
[2018-05-08 11:58] LABS: Albumin 3.4 g/dL (3.2-5.2); Calcium 8.8 mg/dL (8.6-10.3); Magnesium 1.9 mg/dL (1.9-2.7); Potassium 3.7 mmol/L (3.5-5.0); Total Bilirubin 0.5 mg/dL (0.2-1.0)
[2018-05-08 12:04] LABS: Albumin/Globulin Ratio 0.7 (1-3); BUN/Creatinine Ratio 12.1 (8-20); EGFR Non-African American 80.2 (>60); Globulin 4.6 g/dL (2-4)
[2018-05-08] MEDS ORDERED: Iodixanol* (CONTRAST) 320 MG/ML 100 ML SDV IV ONE (12:29)
[2018-05-08 13:05] LABS: C Reactive Protein 30.28 mg/L (<8.01)
[2018-05-08] MEDS ORDERED: Acetaminophen TAB* 325 MG PO PRN (14:52)
[2018-05-08] MEDS ORDERED: Magnesium Hydroxide LIQ* 30 ML UDC PO PRN (14:52)
[2018-05-08] MEDS ORDERED: Albuterol/Ipratropium NEB.SOL* Albuterol 2.5 MG/Ipratropium 0.5 MG 3 ML INH PRN (15:06)
[2018-05-08] MEDS ORDERED: Cyclobenzaprine TAB* 10 MG PO PRN (15:19)
[2018-05-08] MEDS ORDERED: Ondansetron ODT TAB* 4 MG PO PRN (15:19)
[2018-05-08] MEDS ORDERED: oxyCODONE TAB* 5 MG TAB PO PRN (15:19)
[2018-05-08] MEDS: methylPREDNISolone SOD 40 MG* 1 ML VIAL IV SCH (15:25)
[2018-05-08] MEDS ORDERED: Azithromycin IV(*) 500 MG in NS 0.9% 250 ML* 250 ML IVPB SCH (16:00)
[2018-05-08] MEDS ORDERED: cefTRIAXone(*) 1 GM in NS 0.9% 50 ML* 50 ML IVPB SCH (16:00)
[2018-05-08] MEDS ORDERED: Furosemide TAB* 20 MG PO SCH (16:00)
[2018-05-08] MEDS ORDERED: Tamsulosin CAP* 0.4 MG PO SCH (17:00)
[2018-05-08] MEDS: oxyCODONE TAB* 5 MG TAB PO PRN (17:16)
--- NOTE | 2018-05-08 18:29 | HP ---
HISTORY AND PHYSICAL: DATE OF ADMISSION: 05/08/18 PRIMARY CARE PROVIDER: Mason Alonso MD ATTENDING PHYSICIAN: Berenice Pack MD * (DICTATED BY JAZMINE DOWNING ) CHIEF COMPLAINT: "I had chest pain this morning." HISTORY OF PRESENT ILLNESS: Mr. Medina is an 82-year-old man who presented to the ER today with a complaint of chest pain across his chest. He described the pain as tight. He states that the pain was steady in nature; it was worse while he was shaving this morning. He sat upright and this did not relieve the pain. He did not try any medications to relieve the pain. Although, it is noted that he had taken Tylenol earlier that morning for a headache, which has since subsided. The pain does not radiate anywhere, although it is still present and decreased in intensity. He also complains of shortness of breath for approximately 1 month. He has had a chronic cough, but in the last month the cough has become productive with yellow sputum. He denies ill contacts. He states that he felt feverish earlier. It was noted that he did not have an elevated temperature while in the ER. The patient also states that he has had hematuria x1 recently. The patient denies vision changes, rhinorrhea, vomiting , diarrhea, melena, hematochezia. He states that he is always nauseous and has lower abdominal pain, this is chronic and stable. He was referred for a colonoscopy in 2012, which he refused. His last colonoscopy was approximately in 1994 and he continues to refuse the exam. While in the ER, he received a full workup including imaging and laboratory work. A chest x-ray was performed that showed COPD and fibrotic changes. Electrocardiogram showed a paced rhythm. His D-dimer was elevated which led to a CTA of the chest which revealed no evidence for a PE, it was positive for emphysema and interstitial fibrosis as well as tracheomalacia. PAST MEDICAL HISTORY: 1. Coronary artery disease, CT in 2014 resulting in 2 stents. 2. Congestive heart failure, 11/11/16 echo reveals an ejection fraction of 45% to 50%, abnormal left ventricular diastolic filling. 3. Third-degree heart block status post pacemaker. 4. Constipation. 5. Hypertension. 6. BPH. 7. Rheumatoid arthritis. 8. Emphysema. 9. Interstitial fibrosis. PAST SURGICAL HISTORY: 1. Right hip hemiarthroplasty. 2. Lumbar laminectomy, L3-L4 in 1997. 3. Back surgery in 1968. 4. Two cardiac stents in 1999. 5. Pacemaker insertion. HOME MEDICATIONS: 1. Senna 1 tab p.o. daily p.r.n. 2. Aspirin 81 mg p.o. q.a.m. 3. Zofran 4 mg ODT tab 1 tab p.o. b.i.d. p.r.n. nausea. 4. Lisinopril 20 mg p.o. daily. 5. Docusate sodium 100 mg p.o. daily. 6. Oxycodone 5 mg p.o. q.6 hours p.r.n. 7. Tamsulosin 0.4 mg p.o. q.p.m. 8. Metoprolol tartrate 25 mg p.o. b.i.d. 9. Cyclobenzaprine 5 mg p.o. t.i.d. 10. Acetaminophen 650 mg p.o. q.4 hours p.r.n. 11. Furosemide 20 mg Saturday, Saturday and Saturday. ALLERGIES: AMOXICILLIN, METHOTREXATE, SULFA. FAMILY HISTORY: Mother at age of 59 from leukemia. Father at the age of 85 from gangrene. SOCIAL HISTORY: The patient states that he quit using tobacco products approximately 40 years ago. He used to smoke 1 pack per day for approximately 20 years. He has a history of exposure to secondhand smoke for the following approximately 35 to 40 years after that. He denies alcohol use. He denies use of illicit drugs. He lives alone. His in 2017. He is wheelchair bound and has a power wheelchair. He is attempting to gain residence into [facility]. He is on the wait list currently and expects to be offered placement within a month or so. He has 3 children. In the instance that he is unable to make his own medical decisions, he has appointed Khushbu Griggs, his daughter to make decisions for him. REVIEW OF SYSTEMS: A 14-point review of systems was performed and all the pertinent positives and negative findings are in the HPI. PHYSICAL EXAMINATION GENERAL: Mr. Medina is an 82-year-old male, who is well developed and well nourished. He is slightly obese, elderly white male, who is sitting up in his bed. He is in no acute distress. He appears his stated age. VITAL SIGNS: Temperature 98.1, heart rate 63, respiratory rate is 20, oxygen saturation is 98%, blood pressure 142/65. HEENT: Visual lynch are grossly intact. Pupils are equally round and reactive to light and accommodation. Extraocular movements are intact. Sclerae without icterus. Hearing is grossly intact. External auditory canals are patent, free of cerumen. Tympanic membranes intact with visible landmarks. Nares are patent and mucous membranes of bilateral naris are moist. No sinus pain to palpation. The patient has dentures. Oral mucous membranes moist and without lesions. Pharynx clear. NECK: Full range of motion. Thyroid nonpalpable. Trachea midline. No lymphadenopathy. Nontender to palpation. RESPIRATORY: Symmetrical chest expansion. No use of accessory muscles. Lungs with diffuse crackles at bilateral bases. No rhonchi, wheezes, or rubs. CARDIOVASCULAR: Regular rate and rhythm. S1, S2 present. The patient has a murmur that appears to radiate to the carotids. Carotids without bruits. No rubs or gallops. No JVD. ABDOMEN: Bowel sounds in all 4 quadrants. Abdomen is soft. Abdomen is tender to palpation in both the right and left lower quadrants. No hepatosplenomegaly. EXTREMITIES: Skin is warm and smooth bilaterally. No edema. No clubbing or cyanosis. Radial and pedal pulses 2+ bilaterally. No pain or deformities. NEURO: Awake, alert and oriented x3. Moves all extremities. DIAGNOSTIC STUDIES/LABORATORY DATA: WBC 4.7, RBC 4.07, HGB 13.3, HCT 40, platelets 188. INR 1. D-dimer greater than 1050. Sodium 138, potassium 3.7, chloride 105, carbon dioxide 24, BUN 11, creatinine 0.91, lactic acid 0.9, magnesium 1.9. AST 24, ALT 16, alk phos 58. Troponin 0.02, 0.03. CRP 30.28. BNP 125. TSH 1.06. Flu A and flu B both negative. Chest x-ray from 05/08/18, impression: COPD, cardiomegaly, fibrotic changes. CTA chest from 05/08/18, impression: No evidence of a pulmonary embolism, emphysema and interstitial fibrosis with peripheral honeycombing without significant interval change. No new alveolar consolidation or suspicious focal pulmonary lesion. Negative for pleural effusion or pneumothorax. Evidence for tracheomalacia. ASSESSMENT AND PLAN: Mr. Medina is an 82-year-old male with a past medical history as described above, who presents to the ER today with chest pain and shortness of breath. He was found to have emphysema and interstitial fibrosis. The patient will be admitted to observation for the followin. Shortness of breath. Pulmonary consult ordered, nebulizers q.4 hours p.r.n. Solu-Medrol 40 q.12 hours, azithromycin and Rocephin both ordered. 2. Chest pain. Troponins were negative x2. Third troponin has been ordered. Lipids have been ordered. Echo and nuclear medicine stress test have been ordered. The patient is nonambulatory, so chemical stress test was ordered. The patient will be placed on telemetry. 3. Mixed diastolic systolic heart failure. Continue Lasix Saturday, Saturday, Saturday as at home. Continue metoprolol. 4. Coronary artery disease. Continue aspirin 81 mg. 5. Benign prostatic hypertrophy. Continue tamsulosin. 6. Constipation. Continue docusate sodium and as scheduled 100 mg p.o. daily and senna as needed. 7. FEN: Heart-healthy diet with no caffeine. The patient is nonambulatory and uses a wheelchair, please have wheelchair in room. 8. DVT prophylaxis: The patient is high risk. Lovenox ordered. TIME SPENT: Approximately 60 minutes were spent on this admission, greater than half that time spent with the patient and his daughter obtaining history, performing physical, and reviewing the plan of care. The case has been discussed with my attending, Dr. Pack, who is in agreement with the plan. RADHA MAGDALENO, JAZMINE [id number]/[facility] #: [id number] NATE
[2018-05-08] MEDS: Metoprolol Tartrate TAB* 25 MG PO SCH (20:08)
[2018-05-08] MEDS: Docusate CAP* 100 MG PO SCH (20:08)
[2018-05-08] MEDS: Senna TAB PO SCH (20:08)
[2018-05-08] MEDS: Heparin VIAL(*) 5000 UNITS/ML VIAL (FIVE THOUSAND) SUBCUT SCH (21:20)
[2018-05-09] MEDS: oxyCODONE TAB* 5 MG TAB PO PRN ×2 (01:16→15:41)
[2018-05-09] MEDS: methylPREDNISolone SOD 40 MG* 1 ML VIAL IV SCH (05:28)
[2018-05-09] MEDS: Heparin VIAL(*) 5000 UNITS/ML VIAL (FIVE THOUSAND) SUBCUT SCH ×2 (05:29→14:17)
[2018-05-09 05:48] LABS: ABS Basophils 0 10^3/ul (0-0.2); ABS Eosinophils 0 10^3/ul (0-0.6); ABS Lymphocytes 0.6 10^3/ul (1.0-4.8); ABS Monocytes 0.5 10^3/ul (0-0.8); ABS Nucleated RBC 0 10^3/ul; Eosinophil % 0 %; Hematocrit 37 % (42-52); Hemoglobin 12.4 g/dl (14.0-18.0); Mean Corpuscular HGB Conc 33 g/dl (31-36); Mean Corpuscular Hemoglobin 33 pg (27-31); Mean Corpuscular Volume 98 fL (80-94); Mean Platelet Volume 8.3 fL (7.4-10.4); Nucleated Red Blood Cells % 0.1; Platelet Count 187 10^3/ul (150-450); Red Blood Count 3.79 10^6/ul (4.00-5.40); Red Cell Distribution Width 13 % (10.5-15); White Blood Count 4.1 10^3/ul (3.5-10.8)
[2018-05-09 05:50] LABS: BUN/Creatinine Ratio 14.9 (8-20); Calcium 8.9 mg/dL (8.6-10.3); EGFR African American 102.2 (>60); EGFR Non-African American 84.4 (>60); HDL Cholesterol 34.8 mg/dL; Potassium 4.6 mmol/L (3.5-5.0)
[2018-05-09] MEDS ORDERED: Perflutren Lipid Microsphere* 3 ML VIAL ONE (08:13)
[2018-05-09] MEDS: Senna TAB PO SCH (08:52)
[2018-05-09] MEDS: Docusate CAP* 100 MG PO SCH (08:52)
[2018-05-09] MEDS ORDERED: Aspirin 81 mg CHEW TAB* 81 MG TAB.CHEW PO SCH (09:00)
[2018-05-09] MEDS ORDERED: Furosemide TAB* 20 MG PO SCH (09:00)
[2018-05-09] MEDS ORDERED: Lisinopril TAB* 10 MG PO SCH (09:00)
--- NOTE | 2018-05-09 09:53 | CONS ---
PULMONARY CONSULTATION REPORT: DATE OF CONSULT: 05/09/18 CONSULTATION REQUESTED BY: JAZMINE Balbuena REASON FOR CONSULT: Evaluation of abnormal CT chest. HISTORY OF PRESENT ILLNESS: The patient is 82-year-old male, former smoker, with history of coronary artery disease; third degree heart block, status post pacemaker; rheumatoid arthritis; history of emphysema; interstitial fibrosis. The patient presents for evaluation of chest pain. The patient reported chest pain that was radiating across his chest described as with tightness in the chest worse in the morning. The patient did not take any medications to help with the chest pain. No radiation of the pain. Chest pain is associated with shortness of breath that has been gradually worsening over the past month. He also has history of chronic cough which has become more productive recently. The patient denies recent travels or sick contacts. The patient reports generalized fever. The patient did have episode of hematuria. The patient denies vision changes, rhinorrhea, vomiting, diarrhea, melena, and hematochezia. The patient has chronic nausea and abdominal pain that is chronic with no change. The patient had chest x-ray and CT of the chest for evaluation of pulmonary embolism. I have personally reviewed chest x-ray and CT of the chest in comparison with prior CT. The patient noted to have diffused interstitial opacities on chest x-ray. CTA did not reveal filling defects in pulmonary arteries. He was found to have significant emphysematous changes. The patient also with evidence of fibrotic changes with subpleural location, honeycomb cyst present. There is no evidence of significant bronchiectasis. No evidence of significant mediastinal or hilar adenopathy. No evidence of dense consolidation. There is slight progression in these changes in comparison with prior CT. The patient was admitted for evaluation of chest pain. He is also being treated for acute COPD exacerbation. PAST MEDICAL HISTORY: 1. Coronary artery disease, status post NM in 2014, resulting in two stents. 2. Congestive heart failure, ejection fraction 45% to 50% with abnormal LV diastolic filling. 3. Third-degree heart block, status post pacemaker. 4. Constipation. 5. Hypertension. 6. BPH. 7. Rheumatoid arthritis. 8. Emphysema. 9. Interstitial fibrosis. PAST SURGICAL HISTORY: 1. Right hip hemiarthroplasty. 2. Lumbar laminectomy. 3. Back surgery. 4. Two cardiac stents. 5. Pacemaker insertion. MEDICATIONS AT HOME: 1. Zelnorm. 2. Aspirin. 3. Zofran. 4. Lisinopril. 5. Docusate. 6. Oxycodone. 7. Flomax. 8. Metoprolol. 9. Cyclobenzaprine. 10. Acetaminophen. 11. Furosemide. ALLERGIES: AMOXICILLIN, METHOTREXATE, SULFA. FAMILY HISTORY: Mother at age 59 with leukemia. Father at age 85 from gangrene. SOCIAL HISTORY: Former smoker, quit smoking 40 years ago. He used to smoke 1 pack per day for approximately 20 years he was smoking. The patient reports having secondhand smoke exposure for many years later. Denied alcohol or drug abuse. REVIEW OF SYSTEMS: A 14-point review of systems was performed. PHYSICAL EXAM: The patient is in bed, in no apparent distress. Vital Signs: Temperature 97.6, pulse 59 beats per minute, respiratory rate 20 per minute, O2 sat 100% on 2 L, blood pressure 175/84. HEENT: Pupils equal, reactive to light. Mucous membranes moist. Neck: No palpable lymphadenopathy. Respiratory : Crackles at bilateral basis. No significant wheeze. Cardiovascular: S1, S2 present. Abdomen: Soft, nontender, nondistended. Bowel sounds present. Extremities: Normal range of motion. Skin: No rash. Neuro: Alert, awake, and oriented x3. No focal deficits. DIAGNOSTIC STUDIES/LAB DATA: WBC count 4.1, hemoglobin 12.4, hematocrit 37, platelet count 187. Sodium 134, potassium 4.6, chloride 103, bicarb 26, BUN 13 , creatinine 0.87. Influenza A and B negative. Chest x-ray and CT of the chest as described in HPI. EKG, no acute changes. IMPRESSION AND RECOMMENDATIONS: 82-year-old male former smoker, also with history of rheumatoid arthritis. Unclear of what medications he is on in the past, admitted with chest pain, rule out acute coronary syndrome. Troponins x2 have been negative. He was also started on antibiotics for presumed pneumonia. He was started on Solu-Medrol for possible bronchitis of chronic obstructive pulmonary disease exacerbation. The patient with evidence of bronchomalacia, significant fibrotic changes, and emphysematous changes with bullae. Pulmonary fibrosis could have been secondary to history of rheumatoid arthritis, unclear from the history. 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 These changes were seen in 2013. CT also without much interval change. He was treated for it in the past. Continue with titration of O2. He is currently on 2 L saturating 100%. Will also change steroids to p.o. No signs of sepsis at this time. White count is within normal limits. No left shift. Would be able to de-escalate antibiotics to just azithromycin. The patient appears stable from respiratory prospective. Discharge planning pending necessary cardiac workup. Thank you for allowing me to participate in care of your patient. Will follow up with you. [id number]/[facility] #: [id number] NATE
--- NOTE | 2018-05-09 10:19 | PN ---
Subjective Date of Service: 05/09/18 Interval History: Pt states that he is feeling a little better. His chest pain has decreased in intensity, and his shortness of breath has improved with oxygen use. He continues to have diffuse abdominal pain and constipation, which is his baseline. He denies melena, hematochezzia. He denies fever, chills, diarrhea. Pt was seen in the afternoon and states that he feel 4 days ago, stating he was trying to sit in his wheelchair and missed. He believes that the CP may have been due to this incident, as he has found that it was relieved when he was laying on his side for one of his tests today. He denies any new pain or changes in pain since the incident, other than the chest pain; specifically, he denies pain along the length of his spine. Objective Active Medications: Acetaminophen (Tylenol Tab*) 650 mg PO Q4H PRN Albuterol/Ipratropium (Duoneb (Albuterol 2.5 Mg/Ipratropium 0.5 Mg)) 1 neb INH Q4H PRN Aspirin (Aspirin 81 Mg Chew Tab*) 81 mg PO QAM TEMI Cyclobenzaprine HCl (Flexeril Tab*) 5 mg PO TID PRN Docusate Sodium (Colace Cap*) 100 mg PO BID TEMI Furosemide (Lasix Tab*) 20 mg PO MOWEFR TEMI Heparin Sodium (Porcine) (Heparin Vial(*)) 5,000 units SUBCUT Q8HR TEMI Ceftriaxone Sodium 1 gm/ (Sodium Chloride) 50 mls @ 200 mls/hr IVPB Q24H TEMI Azithromycin 500 mg/ Sodium (Chloride) 250 mls @ 250 mls/hr IVPB Q24H TEMI Lisinopril (Prinivil Tab*) 20 mg PO DAILY TEMI Magnesium Hydroxide (Milk Of Magnesia Liq*) 30 ml PO Q4H PRN Methylprednisolone Sodium Succinate (Solu-Medrol 40 Mg) 40 mg IV Q12H TEMI Metoprolol Tartrate (Lopressor Tab*) 25 mg PO BID TEMI Ondansetron HCl (Zofran Odt Tab*) 4 mg PO BID PRN Oxycodone HCl (Roxycodone Tab*) 10 mg PO Q6H PRN Senna (Senokot Tab*) 1 tab PO BID TEMI Tamsulosin HCl (Flomax Cap*) 0.4 mg PO 1700 TEMI Vital Signs: Temp Pulse Resp BP Pulse Ox 97.6 F 59 20 175/84 100 05/09/18 07:31 05/09/18 07:31 05/09/18 07:31 05/09/18 07:31 05/09/18 07:31 Oxygen Devices in Use Now: Nasal Cannula Appearance: Pt is laying in bed; appears well. He is in no acute distress. He is cooperative and appropriate. Eyes: No Scleral Icterus, PERRLA Ears/Nose/Mouth/Throat: NL Teeth, Lips, Gums, Mucous Membranes Moist Neck: NL Appearance and Movements; NL JVP, Trachea Midline, - - The entire length of the spine was examined and palpated without tenderness. He has a small amount of bruising at the bottom of the lumbar spine. Respiratory: Symmetrical Chest Expansion and Respiratory Effort - Crackles at b/ l bases Cardiovascular: RRR, No Edema, - - S1, S2 present; systolic murmur heart. No JVD rubs, clicks, gallops Abdominal: NL Sounds; No Tenderness; No Distention Extremities: No Edema, No Clubbing, Cyanosis Neurological: Alert and Oriented x 3 Result Diagrams: 05/09/18 05:08 05/09/18 05:08 Additional Lab and Data: Lab Results 05/08/18 05/08/18 05/08/18 Range/Units 09:05 09:05 09:05 WBC 4.7 (3.5-10.8) 10^3/ul RBC 4.07 (4.00-5.40) 10^6/ul Hgb 13.3 L (14.0-18.0) g/dl Hct 40 L (42-52) % MCV 98 H (80-94) fL MCH 33 H (27-31) pg MCHC 33 (31-36) g/dl RDW 13 (10.5-15) % Plt Count 188 (150-450) 10^3/ul MPV 7.9 (7.4-10.4) fL Neut % (Auto) 52.6 % Lymph % (Auto) 19.2 % [place] % (Auto) 20.0 % Eos % (Auto) 7.2 % Baso % (Auto) 1.0 % Absolute Neuts (auto) 2.5 (1.5-7.7) 10^3/ul Absolute Lymphs (auto) 0.9 L (1.0-4.8) 10^3/ul Absolute Monos (auto) 0.9 H (0-0.8) 10^3/ul Absolute Eos (auto) 0.3 (0-0.6) 10^3/ul Absolute Basos (auto) 0 (0-0.2) 10^3/ul Absolute Nucleated RBC 0 10^3/ul Nucleated RBC % 0 INR (Anticoag Therapy) 1.00 (0.77-1.02) APTT 24.2 L (26.0-36.3) seconds D-Dimer, Quantitative > 1050 H (Less Than 230) ng/mL Sodium Pending Potassium Pending Chloride Pending Carbon Dioxide Pending Anion Gap Pending BUN Pending Creatinine Pending Est GFR ( Amer) Pending Est GFR (Non-Af Amer) Pending BUN/Creatinine Ratio Pending Glucose Pending Lactic Acid (0.5-2.0) mmol/L Calcium Pending Magnesium Pending Total Bilirubin Pending AST Pending ALT Pending Alkaline Phosphatase Pending Troponin I 0.02 (<0.04) ng/mL B-Natriuretic Peptide (<=100) pg/mL Total Protein Pending Albumin Pending Globulin Pending Albumin/Globulin Ratio Pending TSH 1.06 (0.34-5.60) mcIU/mL Influenza A (Rapid) (Negative) Influenza B (Rapid) (Negative) 05/08/18 05/08/18 05/08/18 Range/Units 09:05 09:05 09:55 WBC (3.5-10.8) 10^3/ul RBC (4.00-5.40) 10^6/ul Hgb (14.0-18.0) g/dl Hct (42-52) % MCV (80-94) fL MCH (27-31) pg MCHC (31-36) g/dl RDW (10.5-15) % Plt Count (150-450) 10^3/ul MPV (7.4-10.4) fL Neut % (Auto) % Lymph % (Auto) % [place] % (Auto) % Eos % (Auto) % Baso % (Auto) % Absolute Neuts (auto) (1.5-7.7) 10^3/ul Absolute Lymphs (auto) (1.0-4.8) 10^3/ul Absolute Monos (auto) (0-0.8) 10^3/ul Absolute Eos (auto) (0-0.6) 10^3/ul Absolute Basos (auto) (0-0.2) 10^3/ul Absolute Nucleated RBC 10^3/ul Nucleated RBC % INR (Anticoag Therapy) (0.77-1.02) APTT (26.0-36.3) seconds D-Dimer, Quantitative (Less Than 230) ng/mL Sodium Potassium Chloride Carbon Dioxide Anion Gap BUN Creatinine Est GFR ( Amer) Est GFR (Non-Af Amer) BUN/Creatinine Ratio Glucose Lactic Acid 0.9 (0.5-2.0) mmol/L Calcium Magnesium Total Bilirubin AST ALT Alkaline Phosphatase Troponin I (<0.04) ng/mL B-Natriuretic Peptide 125 H (<=100) pg/mL Total Protein Albumin Globulin Albumin/Globulin Ratio TSH (0.34-5.60) mcIU/mL Influenza A (Rapid) Negative (Negative) Influenza B (Rapid) Negative (Negative) Microbiology and Other Data: Microbiology 05/08/18 09:05 Aerobic Blood Culture - Preliminary Blood Venous No Growth Day 1 Anaerobic Blood Culture - Preliminary No Growth Day 1 05/08/18 09:37 Aerobic Blood Culture - Preliminary Blood Venous No Growth Day 1 Anaerobic Blood Culture - Preliminary No Growth Day 1 05/08/18 17:10 Nasal Screen MRSA (PCR) - Final Nasal Mrsa Detected 05/08/18 09:37 Influenza Types A,B Antigen - Final Nasal Specimen received for Influenza A/B Molecular testing Assess/Plan/Problems-Billing Assessment: Pt is a 82yom with PMHx of CAD, CHF, third-degree heart block s/p pacemaker, HTN , BPH, RA, emphysema, interstitial fibrosis, and constipation who was admitted for CP, r/o ACS and SOB, likely exacerbation of COPD. - Patient Problems (1) Chest pain Comment: -Decreased in intesity in last 24h; overnight tele shows regular rate, paced rhythm -Await ECHO, stress test results (2) COPD exacerbation Comment: -Pt has experienced some relief with use of oxygen and nebulizers -Thank you Pulmonology for the consult and suggestions -Continue O2, Nebulizers, and Azithromycin -Change steroid from PO to IV -Discontinue Rocephin -Follow up with cardiology outpatient for management of COPD, interstitial fibrosis (3) Hyperlipidemia Comment: -Will discuss lab results and medication with patient (4) Hematuria Comment: -UA ordered for evaluation (5) CHF (congestive heart failure) Comment: -Continue home rx (6) Constipation Comment: -Continue home rx (7) BPH (benign prostatic hyperplasia) Comment: -Continue home rx (8) DVT prophylaxis Status and Disposition: Observation. Discharge home pending cardiac workup.
[2018-05-09] MEDS ORDERED: Regadenoson* 0.4 MG/5 ML SYRINGE ONE (12:42)
--- NOTE | 2018-05-09 12:55 | ECHO ---
Patient: SLIM GRANT [facility] Rec#: [id number] : 1935 Date: 05/09/2018 Age: 82y Height: 185 cm / 72.8 in Weight: 95.3 kg / 210.0 lbs Sex: M BSA: 2.19 Room#: 431 Admit Date#: 05/08/2018 Type: Inpatient Referring: Denice Francisco Reading: Corbin Thomas MD Outside Salesperson: Blank Teague RN RDCS CC: Mason Alonso MD Transthoracic Echocardiogram Indication: Chest pain BP: 142/65 HR: 60 Rhythm: Paced Findings History: CAD, HI, coronary stents, ICD, HTN, HLD, COPD, CKD Technical Comments: The study is technically limited due to the patient's history of COPD. Completed at 0915. Left Ventricle: The left ventricular chamber size is normal. Moderate concentric left ventricular hypertrophy is observed. There is global hypokinesis of the left ventricle with minor regional variation.There is more pronounced inferior and inferoseptal hypokinesis c/t the other segments. There is mild to moderately decreased left ventricular systolic function. The estimated ejection fraction is 40-45%. There is abnormal ventricular septal wall motion consistent with right ventricular pacemaker. Abnormal left ventricular diastolic function is observed. Abnormal left ventricular diastolic filling is observed, consistent with impaired relaxation. Left Atrium: The left atrium is slightly dilated. Right Ventricle: The right ventricular cavity size is normal. The right ventricular global systolic function is mildly reduced. A pacemaker wire is visualized in the right ventricle. Right Atrium: The right atrium is mildly dilated. A pacemaker wire is visualized in the right atrium. Aortic Valve: The aortic valve is trileaflet. The aortic valve leaflets are moderately thickened.The RCC is relatively more restricted. Systolic excursion of the aortic valve cusps is reduced. There is a trace of aortic regurgitation. There is mild to moderate aortic stenosis. The mean gradient of the aortic valve is 6 mmHg. The peak instantaneous gradient of the aortic valve is 13 mmHg. The aortic valve area, by peak velocities, is calculated at 1.5 cm2. The dimensionless index is 0.47-0.51. The highest aortic valve velocity was obtained with the standard probe from the A5C view. Mitral Valve: The mitral valve leaflets are mildly thickened. There is mild mitral regurgitation. There is no evidence of mitral stenosis. Tricuspid Valve: The tricuspid valve leaflets are normal. There is moderate tricuspid regurgitation. There is evidence of moderate to severe pulmonary hypertension. There is no tricuspid stenosis. Pulmonic Valve: The pulmonic valve structure is not well visualized. Pericardium: There is no significant pericardial effusion. A pericardial fat pad is visualized. Aorta: The ascending aorta is not well visualized. There is no dilatation of the aortic arch. There is no dilation of the aortic root. Pulmonary Artery: The main pulmonary artery is not well visualized. Venous: The venous system is not well visualized. The inferior vena cava is not visualized. Contrast: Definity was used to optimize study. A total of 3 ml of Definity was given IV. Conclusions Moderate concentric left ventricular hypertrophy is observed. There is global hypokinesis of the left ventricle with minor regional variation.There is more pronounced inferior and inferoseptal hypokinesis c/t the other segments. There is mild to moderately decreased left ventricular systolic function. The estimated ejection fraction is 40-45%, closer to 45%. The right ventricular global systolic function is mildly reduced. The aortic valve leaflets are moderately thickened.The RCC is relatively more restricted. There is mild to moderate aortic stenosis. The aortic valve area, by peak velocities, is calculated at 1.5 cm2. There is mild mitral regurgitation. There is mild tricuspid regurgitation. There is moderate tricuspid regurgitation. There is evidence of moderate to severe pulmonary hypertension. Similar to 10/2016 except that the PASP has decreased from 72 to 60 mmhg Measurements Name Value Normal Range RVDdMajor (2D) 3.8 cm (2.2 - 4.4) RAd ISD 4CH 5.6 cm (3.4 - 4.9) RA (A4C)W 3.8 cm (2.9 - 4.6) IVSd (2D) 1.4 cm (0.6 - 1) LVPWd (2D) 1.4 cm (0.6 - 1) LVIDd (2D) 4.6 cm (3.6 - 5.4) LVIDs (2D) 3.8 cm - LV FS (2D) 17 % (25 - 45) Aortic Annulus 2.5 cm (1.4 - 2.6) Ao root diameter (2D) 3.5 cm (2.1 - 3.5) Aortic arch 3 cm (1.8 - 3.4) LA dimension (AP) 2D 3.2 cm (2.3 - 3.8) LAd ISD 4CH 4.9 cm (2.9 - 5.3) LA ISD 4CH W 4.7 cm (2.5 - 4.5) Name Value Normal Range LA ESV BP (A/L) index 25.1 ml/m2 - Name Value Normal Range MV E-wave Vmax 1.2 m/sec - MV deceleration time 150 msec - LV septal e' Vmax 0.05 m/sec - LV lateral e' Vmax 0.03 m/sec - LV E:e' septal ratio 24 ratio - LV E:e' lateral ratio 40 ratio - Name Value Normal Range AV Vmax 1.8 m/sec - AV VTI 39.6 cm - AV peak gradient 13 mmHg - AV mean gradient 6 mmHg - LVOT diameter 2 cm - LVOT Vmax 0.84 m/sec - LVOT VTI 20.2 cm - LVOT peak gradient 3 mmHg - LVOT mean gradient 1 mmHg - DOI (VTI) 0.51 ratio - DOI (Vmax) 0.47 ratio - MAGNUS (continuity Vmax) 1.5 cm2 - MAGNUS (continuity VTI) 1.6 cm2 - ARMANDO Vmax 0.39 m/sec - Name Value Normal Range TR Vmax 3.6 m/sec - TR peak gradient 52 mmHg - RAP 8 mmHg - RVSP 60 mmHg - Name Value Normal Range PV Vmax 0.8 m/sec -
[2018-05-09] MEDS: Metoprolol Tartrate TAB* 25 MG PO SCH (13:09)
[2018-05-09 16:11] VITALS: BP 135/61
--- NOTE | 2018-05-09 21:37 | DS ---
AMENDED REPORT NOW INCLUDES DESIGNATED COSIGNER DISCHARGE SUMMARY: DATE OF ADMISSION: 05/08/18 DATE OF DISCHARGE: 05/09/18 PRIMARY CARE PHYSICIAN: Dr. Mason Alonso. ATTENDING PHYSICIAN: Dr. Jose C Cruz.* (DICTATED BY JAZMINE DOWNING ) PRIMARY DIAGNOSES: 1. Chest pain. 2. Shortness of breath. SECONDARY DIAGNOSES: 1. Coronary artery disease status post myocardial infarction in 2015 resulting in 2 stents. 2. Congestive heart failure, EF 40% to 45% with abnormal LV diastolic fulling. 3. 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 4. Constipation. 5. Hypertension. 6. Benign prostatic hypertrophy. 7. Rheumatoid arthritis. 8. Emphysema. 9. Interstitial fibrosis. STUDIES WHILE IN THE HOSPITAL: 1. Chest x-ray on 05/08/18. Impression: COPD, cardiomegaly, fibrotic changes. 2. CTA of the chest from 05/08/18. CTA included thoracic spine, and showed negative for suspicious thoracic osseous lesions. Impression: No evidence for pulmonary embolism, emphysema, and interstitial fibrosis with peripheral honeycombing without significant interval change. No new alveolar consolidation or suspicious focal pulmonary lesions. Negative for pleural effusion or pneumothorax. Evidence for tracheomalacia. 3. Transthoracic echocardiogram from 05/08/18. Conclusion: Moderate concentric left ventricular hypertrophy is observed. There is global hypokinesis of the left ventricle with minor regional variation. There is more pronounced inferior and the inferoseptal hypokinesis compared to other segments. There is mild to moderate decreased left ventricular systolic function. The estimated ejection fraction is 40% to 45%, closer to 45%. The right ventricular global systolic function is mildly reduced. The aortic valve leaflets are moderately thickened. The RCC is relatively more restricted. There is mild to moderate aortic stenosis. The aortic valve area, by peak velocities, is calculated at 1.5 sq cm. There is mild mitral regurgitation. There is mild tricuspid regurgitation. There is moderate tricuspid regurgitation. There is evidence of moderate to severe pulmonary hypertension. Similar to October 2016 except for the PASP has decreased from 72 to 60 mmHg. Nuclear medicine scan from 05/09/18, nuclear cardiac stress test, impression: No compelling evidence for stress-induced ischemia, normal range estimated left ventricular ejection fraction, dilated left ventricle with hypokinesia, most marked at the septum and septal aspect of the inferior wall. Assessment: Low risk based on nuclear portion. DISCHARGE MEDICATIONS: Home medications: 1. Oxycodone 10 mg p.o. q.6 hours p.r.n. 2. Senna 1 tab p.o. daily p.r.n. 3. Aspirin 81 mg 1 tab p.o. q.a.m. 4. Zofran 4 mg ODT 1 tab p.o. b.i.d. p.r.n. 5. Lisinopril 20 mg p.o. daily. 6. Docusate sodium 100 mg p.o. daily. 7. Tamsulosin 0.4 mg p.o. in the evening. 8. Metoprolol tartrate 25 mg p.o. b.i.d. 9. Finasteride 5 mg p.o. q.p.m. 10. Cyclobenzaprine 5 mg p.o. t.i.d. 11. Acetaminophen 650 mg p.o. q.4 hours p.r.n. 12. Furosemide 20 mg p.o. on Mondays, Wednesdays and Fridays. New home medications: 1. Prednisone 40 mg p.o. daily x5 days. 2. Azithromycin 250 mg p.o. daily x4 days. 3. Albuterol/ipratropium neb solution 1 neb q.6 hours p.r.n. HISTORY OF PRESENT ILLNESS/HOSPITAL COURSE: Mr. Medina is an 82-year-old man with a past medical history as described above who presented to the ER on with complaints of chest pain and shortness of breath. His main complaint was that he had chest pain across his chest that he described as tight. It was constant. There was no relief with changes in position. He did not try any medications to relieve the pain and there was no radiation of the pain. He also complained of shortness of breath x1 month. He has a chronic cough, but in the last week, it has been productive with yellow sputum. While in the ER, he received a full workup including imaging and laboratory work. Chest x-ray showed COPD and fibrotic changes. An elevated D-dimer led to a CTA of the chest which revealed no evidence for PE. The patient was then admitted for an echo and nuclear medicine stress test. The echo was unchanged from the previous echo dated October 2016 except that the pulmonary artery pressure had decreased from 72 to 60. During the nuclear medicine stress test, it was relayed that the patient had relief when lying on his side and that the chest pain may be more positional in nature than initially suspected. Nuclear medicine scan was also performed which revealed low risk based on the nuclear portion. The patent was assessed by Pulmonology who suggested that the patient was in COPD exacerbation. The patient was recommended to continue to titrate off of oxygen. Steroids were switched from IV Solu-Medrol to p.o. prednisone. On the day of discharge, the patient is feeling better. His chest pain has in intensity and his shortness of breath has improved. He denies fever , chills, diarrhea, melena, hematochezia. He continues to have diffuse abdominal pain and constipation which is his baseline. Mr. Medina is stable for discharge. PHYSICAL EXAMINATION: General: Mr. Medina is a well-developed obese white male who is lying in his bed. He is in no acute distress. He appears his stated age. Vital Signs: Temperature 97.6, heart rate is 64, respiratory rate is 16, oxygen saturation is 100%, blood pressure 135/61. HEENT: Visual lynch grossly intact. Pupils equally round and reactive to light and accommodation. Extraocular movements intact. Hearing is grossly intact. Oral mucus membranes are moist without lesions. Pharynx is clear. Neck: Full range of motion. Thyroid is not palpable. Trachea at midline. No lymphadenopathy. Respiratory : Symmetrical chest expansion with no use of accessory muscles. Lungs have coarse crackles at bilateral bases. No rhonchi, wheezes, or rubs. Cardiovascular: S1, S2 present. Regular rate and rhythm. The patient has a systolic murmur. No rubs or gallops. No JVD. Abdomen: Bowel sounds in all 4 quadrants. The abdomen is soft and it is diffusely tender to palpation. No hepatosplenomegaly. Musculoskeletal: Spine is nontender to palpation at the entire length of the spine. There is mild bruising at the base of the spine. Extremities: Skin is warm and smooth bilaterally. No edema. No clubbing or cyanosis. Radial and pedal pulses are 2+ bilaterally. Neuro: A and O x3. The patient is able to move all of his extremities. He is wheelchair bound and has weakness in both his lower extremities which is his baseline. DISCHARGE PLAN: Mr. Medina will be discharged home. ACTIVITY: As tolerated. DIET: Heart-healthy, low fat, low salt. MEDICATIONS: As above. EDUCATION: 1. Followup with primary care provider, discussed results of lipid panel and possibility of adding on statin medication. At this time, the patient has elected to discuss this with his PCP. Follow up regarding chest pain as well. Despite no evidence for thoracic osseous lesions on CTA, chest pain may be related to the spine as it appears to be in a dermatomal pattern. 2. Followup with Pulmonology regarding COPD/emphysema, interstitial fibrosis. 3. DuoNebs q.6 hours as needed for shortness of breath or wheeze. 4. Continue prednisone for 5 days starting tomorrow. 5. Continue azithromycin for 4 days starting tomorrow. 6. Return to the ER or nearest hospital if you experience any worsening of symptoms, shortness of breath, lightheadedness, dizziness, chest discomfort, high fevers, chills, night sweats, loss of consciousness, or any other worrisome signs or symptoms. This is a summarized report of a complex medical history and hospital stay. For further details, please see the entire medical record. TIME SPENT: Approximately 40 minutes were spent on this discharge, greater than half of that time was spent [id number] with the patient discussing the discharge plan and instructions. JAZMINE DOWNING [id number]/FRANCES #: [id number] NATE
[2018-05-10] MEDS ORDERED: predniSONE TAB* 20 MG PO SCH (09:00)
== END 2018-05-09 16:50 | disposition home or self-care (01) ==
LOC: ED 09:00 → MEDTELE 14:52
PROVIDERS: ADMIT Internal Medicine; ATTEND Hospitalist
DX: R07.9 Chest pain, unspecified (principal); R06.02 Shortness of breath; I25.10 Atherosclerotic heart disease of native coronary artery without angina pectoris; Z95.5 Presence of coronary angioplasty implant and graft; Z95.0 Presence of cardiac pacemaker; K59.00 Constipation, unspecified; I10 Essential (primary) hypertension; N40.0 Benign prostatic hyperplasia without lower urinary tract symptoms; M06.9 Rheumatoid arthritis, unspecified; J43.9 Emphysema, unspecified; J84.10 Pulmonary fibrosis, unspecified; I44.2 Atrioventricular block, complete; Z79.82 Long term (current) use of aspirin; Z88.0 Allergy status to penicillin; Z88.2 Allergy status to sulfonamides; Z87.891 Personal history of nicotine dependence
CPT/HCPCS: 36415; 71046; 71275; 78452; 80048; 80053; 80061; 83605; 83735; 83880; 84443; 84484; 85025; 85379; 85610; 85730; 86140; 87040; 87641; 93005; 93017; 93306; 96374; 96375; 96376; 99285; A9270-GY; A9502; C8929; G0378; J0456; J0696; J1644; J2405; J2785; J2920; Q9967

== ENCOUNTER → 2018-09-14 10:37 | Emergency (ER) | payer MEDICARE, OTHER ==
[~2018-09-14 10:37] MED LIST: Morphine 4 MG/ML VIAL (1 ml) 4 MG/ML VIAL IV ONE; Ondansetron INJ* 2 MG/ML VIAL IV ONE; Tamsulosin CAP* 0.4 MG PO ONE
--- NOTE | 2018-09-14 11:12 | ED ---
GI/ HPI - HPI Summary HPI Summary: Patient is an 82-year-old male with history of kidney stones, BPH, UTI, AV block and NH 10 years ago with 2 stent placements presenting to the ED with right-sided flank pain radiating to the right lower quadrant. He is also endorsing urinary retention and has been unable to urinate since 2 AM. Endorses symptoms of obstruction. Symptoms began early this morning, constant, feeling of aching and stabbing, not worse or better with positioning. Hx of similar. Urologist is Dr. Kaiser. Denies UTI symptoms otherwise prior to acute onset, however has been having suprapubic tenderness since 2am. Denies CP , SOB, or vomiting, but endorses nausea. Denies weakness, fevers, sweats or chills. - History of Current Complaint Chief Complaint: EDFlankPain Time Seen by Provider: 09/14/18 10:38 Stated Complaint: "ABD PAIN PER EMS" Hx Obtained From: Patient Onset/Duration: Started Hours Ago - 2am Timing: Constant Severity: Severe Current Severity: Severe Pain Intensity: 7 Location of Pain: Suprapubic, Flank Pain Characteristics: Sharp Pain Radiates to: RLQ Associated Signs and Symptoms: Positive: Back Pain, Nausea, Flank Pain, Abdominal Pain, UTI Symptoms. Negative: Weakness, Syncope, Vomiting, Bruising, Hematuria Aggravating Factor(s): Voiding, Straining, Urination - Additional Pertinent History Primary Care Physician: [id number] - Allergy/Home Medications Allergies/Adverse Reactions: Allergies Allergy/AdvReac Type Severity Reaction Status Date / Time amoxicillin Allergy Rash And Verified 09/14/18 11:08 Itching methotrexate Allergy Altered Verified 09/14/18 11:08 Mental Status Sulfa (Sulfonamide Allergy Rash Verified 09/14/18 11:08 Antibiotics) PMH/Surg Hx/FS Hx/Imm Hx Previously Healthy: Yes Endocrine/Hematology History: Denies: Hx Anticoagulant Therapy, Hx Blood Disorders, Hx Diabetes Cardiovascular History: Reports: Hx Angina, Hx Coronary Artery Disease, Hx Hypercholesterolemia - HLD, Hx Hypertension, Hx Myocardial Infarction, Hx Pacemaker/ICD, Other Cardiovascular Problems/Disorders - CARDIAC CATH WITH 2 STENTS Denies: Hx Congestive Heart Failure, Hx Valvular Heart Disease Respiratory History: Reports: Hx Pneumonia, Other Respiratory Problems/ Disorders - [place] [facility] [place] [id number] HAD PN Denies: Hx Asthma, Hx Chronic Obstructive Pulmonary Disease (COPD) GI History: Reports: Hx Gastroesophageal Reflux Disease, Other GI Disorders - has been referred for colonoscopy, but declined History: Reports: Hx Benign Prostatic Hyperplasia, Hx Chronic Renal Failure - CKD, Hx Kidney Stones - HX- APPROX 2010, Hx Renal Disease - CKD Denies: Hx Dialysis, Other Problems/Disorders Musculoskeletal History: Reports: Hx Arthritis - RHEUMATOID, Hx Back Problems - CHRONIC Sensory History: Reports: Hx Cataracts, Hx Contacts or Glasses, Hx Hearing Problem - a bit hard of hearing Denies: Hx Hearing Aid Opthamlomology History: Reports: Hx Cataracts, Hx Contacts or Glasses Neurological History: Reports: Other Neuro Impairments/Disorders - SJOGERNS/ FORGETFULLNESS Psychiatric History: Reports: Hx Depression Denies: Hx Panic Disorder - Surgical History Surgery Procedure, Year, and Place: LUMBAR LAMEN[place]OM[place] L3-L4 [place] [facility] [place]GERY 1968- [facility] [place] 2-CARDIAC STENTS 1999- [facility]. 03/28- PACEMAKER INSERTION- [facility] [place] LEFT HIP HEMIARTHROPLASTY 11/12/16 Hx Anesthesia Reactions: No - Immunization History Date of Tetanus Vaccine: More than 10 years ago Date of Influenza Vaccine: Not since age 67 and patient refuses Hx Pertussis Vaccination: No Immunizations Up to Date: Yes Infectious Disease History: No Infectious Disease History: Reports: Hx of Known/Suspected MRSA Denies: Traveled Outside the [place] in Last 30 Days - Family History Known Family History: Positive: Diabetes, Other - cancer - Social History Occupation: Unemployed Lives: Alone Alcohol Use: None Hx Substance Use: No Substance Use Type: Reports: None Hx Tobacco Use: Yes - not currently Smoking Status (MU): Former Smoker Amount Used/How Often: 1 PPD FROM AGE 19 Have You Smoked in the Last Year: No Review of Systems Negative: Fever, Chills, Fatigue, Skin Diaphoresis Negative: Palpitations, Chest Pain Negative: Shortness Of Breath, Cough Positive: Abdominal Pain, Nausea. Negative: Vomiting, Diarrhea Positive: dysuria, flank pain, urgency Negative: Arthralgia, Myalgia Skin: Negative All Other Systems Reviewed And Are Negative: Yes Physical Exam Vital Signs On Initial Exam: Initial Vitals Temp Pulse Resp BP Pulse Ox 97.7 F 66 14 129/80 94 09/14/18 10:49 09/14/18 10:49 09/14/18 10:49 09/14/18 10:49 09/14/18 10:49 Diagnostics - Vital Signs Vital Signs Temp Pulse Resp BP Pulse Ox 09/14/18 10:55 18 09/14/18 10:53 65 19 129/80 95 09/14/18 10:52 70 16 94 09/14/18 10:49 97.7 F 66 14 129/80 94 - Laboratory Result Diagrams: 09/14/18 11:08 09/14/18 11:08 Lab Statement: Any lab studies that have been ordered have been reviewed, and results considered in the medical decision making process. GIGU Course/Dx - Course Course Of Treatment: The patient's course of treatment, he is evaluated for acute onset of suprapubic tenderness, retention, right flank pain radiating to the RLQ. CT abdomen/pelvis obtained. UA obtained which is positive for trace ketones and 2+ blood, negative for UTI. CRP elevated at 12.66. Patient is endorsing most of the pain to the right flank and right lower quadrant. He states this is similar to his flank pain from previous kidney stones. CT shows stable renal calcifications in the lower pole right kidney but no signs of hydronephrosis or stones in the ureter or urinary bladder. Small right-sided inguinal hernia containing peritoneal fat and fluid that is slightly larger when compared to the October 30, 2012 CT examination. On reexamination, patient is feeling improved. He states his symptoms improved with the morphine and states he has oxycodone at home which she can take for any discomfort. Since there are no signs of kidney stones, UTI or any bladder obstruction, he will be discharged home with inguinal hernia and right sided pain. No evidence of appendicitis on CT exam. Bladder scan reveals approximately 100 cc. Patient denies any obstructive symptoms currently. He continues to take Flomax daily. He is given a surgical follow-up. - Diagnoses Differential Diagnoses - Male: Other - Renal calculi, UTI, obstruction, right inguinal hernia, BPH, retention Provider Diagnoses: Right lower quadrant abdominal pain, Inguinal hernia Discharge - Sign-Out/Discharge Documenting (check all that apply): Patient Departure Patient Received Moderate/Deep Sedation with Procedure: No - Discharge Plan Condition: Stable Disposition: HOME Patient Education Materials: Inguinal Hernia (ED) Referrals: Luisito Cardenas MD [Medical Doctor] - Mason Alonso MD [Medical Doctor] - Additional Instructions: Please follow up with surgery. Continue to take your at home medications as needed Call Dr. Kaiser's office for a follow up If symptoms worsen or persist, return to the ED - Billing Disposition and Condition Condition: STABLE Disposition: Home
--- OUTSIDE RECORDS SUMMARY | 2018-09-14 11:31 | XMS REPORT | Continuity of Care Document ---
:1935 External Reference #:[id number] Author Name Phi Lina Care Team Providers Name Role Phone Shan Villaseñor MD Primary Care Physician Unavailable Payers Date Identification Numbers Payment Provider Subscriber Policy Number: [id number] Medicare Ezio Medina PayID: [id number] [address] [place] [address] Effective: 1998 Policy Number: [id number] Medicare Ezio Medina Expires: 2018 PayID: [id number] [address] [place] [address] Effective: 1998 Policy Number: [id number] [employer] Ezio Medina Group Number: [id number] [address] Group Name: [place] [address] PayID: [id number] Problems Active Problems Provider Date Multiple joint pain Cuco Patton M.D. Onset: 01/12/2013 Spinal stenosis in cervical region Cuco Patton M.D. Onset: 01/12/2013 Spinal stenosis of lumbar region Cuco Patton M.D. Onset: 01/12/2013 Immunological Findings Nonspecified Other & uCco Patton M.D. Onset: 2012 Unspecified Medications Care Home (Current) Use Cuco Patton M.D. Onset: 01/12/2013 Encounter Lumbosacral spondylosis without myelopathy Gerry Kong M.D. Onset: Senile osteoporosis Gerry Kong M.D. Onset: 02/03/2013 Pathological fracture of vertebra Gerry Kong M.D. Onset: 02/03/2013 Closed fracture of base of neck of femur Fco Cardozo M.D. 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 Tobacco Use Start: Unknown End: Former Cigarette Smoker quit 1960s Unknown 1 Pack Daily Smoking Status Reviewed: 08/28/18 Former Cigarette Smoker quit 1960s 1 Pack Daily ETOH Use Denies alcohol use Tobacco Use Start: Unknown End: Patient is a former quit in the s, Unknown smoker about 1PPD Recreational Drug Use Denies Drug Use Exercise Type/Frequency Does not exercise Allergies, Adverse Reactions, Alerts Active Allergies Reaction Severity Comments Date Methotrexate 06/02/2013 Cefuroxime 01/09/2017 Sulfa Antibiotics 01/09/2017 Inactive Allergies NKDA 01/12/2013 Medications Active Medications SIG Qnty Indications Ordering Date Provider Lisinopril 1 by mouth every 90tabs Corbin Hood 01/10/2017 10mg Tablets day Reza Thomas Senna 1 tab by mouth 90tabs Unknown 8.6mg Tablets twice a day as needed for constipation Colace 1 po daily 40caps Unknown 100mg Capsules Metoprolol Succinate 1 by mouth every Unknown ER day 25mg Tablets ER 24HR Finasteride 1 by mouth every 90tabs Unknown 5mg Tablets day Tamsulosin HCL 1 by mouth every 30caps Unknown 0.4mg day Capsules Cyclobenzaprine HCL as needed 30tabs Unknown 5mg Tablets Tylenol Extra Strength 2 by mouth as Unknown needed 500mg Tablets Lasix 1 by mouth saturday 30tabs Unknown 20mg Tablets saturday and saturday Oxycodone HCL 1 by mouth every 6 Unknown 5mg Tablets hours as needed pain Zofran take 1 by mouth Unknown 4mg Tablets twice a day as needed for nausea Aspirin 1 by mouth every Unknown 81mg Chewtabs day Combivent Respimat inhale one puff by Unknown mouth four times a 20-100mcg/Act Aerosol day (not using) History Medications Nitrofurantoin Monohyd 1 by mouth twice Unknown 01/08/2017 - Macro a day x 7 days 07/09/2017 100mg Capsules Aspirin take 1 by mouth Elver Rodriguez 12/18/2016 - 325mg Tablets DR once a day [place], 01/09/2017 Reza,FACP Folic Acid 1 po qd 30tabs 719.49 Cuco Patton, 01/12/2013 - 1mg Tablets M.D. 06/02/2013 Methotrexate 4 tabs q 20tabs 719.49 Cuco Patton, 01/12/2013 - 2.5mg Tablets saturday M.DMaria Eugenia 06/02/2013 Diclofenac Sodium XR 1 po qd 60tabs Cuco Patton, 01/12/2013 - 100mg M.DMaria Eugenia 03/27/2013 Tablets ER 24HR Gabapentin 1 po qhs to 90caps Gerry Irizarry 11/28/2012 - 100mg Capsules start and david Kong M.D. 03/27/2013 increase as tolerated to 2 po qhs then 1 po qam and 2 po hs, gradually up to 3 tid prn pain Ranitidine HCL 1 by mouth twice Unknown - 150mg Capsules a day 01/08/2017 Miralax 1/2 cap every Unknown - Powder other day 07/09/2017 Coumadin 1 by mouth every Unknown - 6mg Tablets day 12/18/2016 Fentanyl q72hrs topically 10units Unknown - 75mcg/HR Patches 72HR 07/09/2017 Magnesium 1 by mouth every Unknown - 400mg Capsules day 07/09/2017 Lisinopril 1/2 by mouth 45tabs Corbin Hood - 20mg Tablets every day Reza Thomas 01/10/2017 Iron 1 po qd 90tabs Unknown - 325(65Fe) mg Tablets 04/11/2014 Vitamin B-12 1 po qd Unknown - 500mcg Tablets 04/11/2014 Avodart 1 po qd 30caps Unknown - 0.5mg Capsules 04/11/2014 Atorvastatin Calcium take 1 tablet at 30tabs Unknown - 20mg Tablets bedtime 04/11/2014 Oxycodone HCL 1 tab po tid prn 120tabs Unknown - 30mg Tablets 04/11/2014 Potassium Chloride ER 1 po qd Unknown - 10Meq 04/11/2014 Tablets ER Polyethylene Glycol 3350 mix 17 grams 527unit Unknown - 3350NF once daily with s 04/11/2014 Powder 8 ounces of water / juice Lisinopril 1 po qd 30tabs Unknown - 10mg Tablets 04/11/2014 Acetaminophen take 2 tabs po 120tabs Unknown - 325mg Tablets q4hrs prn for 04/11/2014 minor pain or elevated temp Vancomycin HCL 1250mg IV q24hrs 1units Unknown - 1000mg Solution 04/11/2014 Rec Prednisone Take 1 tab bid 20tabs Unknown - 20mg Tablets 03/27/2013 Aspirin 81 po qd Unknown - 81mg Tablets 12/18/2016 Carisoprodol 1 tab 4 times 30tabs Unknown - 350mg Tablets daily prn pain 04/11/2014 Simvastatin 1 po qhs 90tabs Unknown - 40mg Tablets 05/27/2013 Hydrochlorothiazide 1 po qd 30caps Unknown - 12.5mg 06/02/2013 Capsules Metoprolol Tartrate 1 po bid 60tabs Unknown - 50mg Tablets 04/11/2014 Avodart 1 po qd 30caps Unknown - 0.5mg Capsules 03/27/2013 Oxycodone/Acetaminophen 2 tab po q 60tabs Unknown - 10-325mg 4-6hrs prn pain 05/27/2013 Tablets Omeprazole 1 po qd 30caps Unknown - 20mg Capsules 01/08/2017 Amlodipine Besylate 1 po qd 90tabs Unknown - 5mg Tablets 03/27/2013 Vital Signs Date Vital Result Comment 08/28/2018 12:54pm Height 73 inches 6'1" pt in wheelchair Weight 250.00 lb per patient Heart Rate 42 /min BP Systolic Sitting 140 mmHg Rue large cuff BP Diastolic Sitting 80 mmHg Rue large cuff Respiratory Rate 16 /min O2 % BldC Oximetry 94 % BMI (Body Mass Index) 33.0 kg/m2 Neck Circumference in inches 18 07/14/2018 1:53pm Height 73 inches 6'1" pt in wheelchair Weight 250.00 lb reported Heart Rate 80 /min BP Systolic Sitting 140 mmHg LA< large BP Diastolic Sitting 80 mmHg LA< large BMI (Body Mass Index) 33.0 kg/m2 Ejection Fraction 40%-45% 05/09/18 echo 07/10/2017 1:21pm Heart Rate 68 /min BP Systolic Sitting 144 mmHg BP Diastolic Sitting 80 mmHg BP Systolic Standing 136 mmHg la repeat sitting BP Diastolic Standing 79 mmHg la repeat sitting Ejection Fraction 45%-50% echo 11/12/16 01/09/2017 11:28am Height 73 inches 6'1" Heart Rate 60 /min BP Systolic Sitting 110 mmHg Ra lrg cuff BP Diastolic Sitting 68 mmHg Ra lrg cuff Ejection Fraction 45% - 50% echo 11/12/16 12/12/2016 11:42am Height 73 inches 6'1" Weight 202.00 lb BP Systolic 110 mmHg BP Diastolic 64 mmHg Respiratory Rate 18 /min Body Temperature 97.8 F Pain Level 2 BMI (Body Mass Index) 26.6 kg/m2 05/26/2014 11:28am Height 71.50 inches 5'11.50" Weight 165.00 lb with shoes Heart Rate 80 /min regular BP Systolic Sitting 128 mmHg right arm reg cuff BP Diastolic Sitting 70 mmHg right arm reg cuff BP Systolic Standing 124 mmHg BP Diastolic Standing 124 mmHg Respiratory Rate 18 /min BMI (Body Mass Index) 22.7 kg/m2 04/12/2014 2:14pm Height 71.50 inches 5'11.50" Weight 170.00 lb per patient, unable to stand on scale Heart Rate 90 /min BP Systolic Sitting 156 mmHg right arm, reg cuff BP Diastolic Sitting 100 mmHg right arm, reg cuff Respiratory Rate 24 /min BMI (Body Mass Index) 23.4 kg/m2 06/02/2013 9:28am Height 71.50 inches 5'11.50" Weight 242.00 lb Heart Rate 72 /min BP Systolic 140 mmHg BP Diastolic 76 mmHg Body Temperature 98.1 F BMI (Body Mass Index) 33.3 kg/m2 03/27/2013 10:45am Height 71.50 inches 5'11.50" Weight 243.00 lb BP Systolic 122 mmHg BP Diastolic 74 mmHg Pain Level 5 back and right leg BMI (Body Mass Index) 33.4 kg/m2 02/03/2013 10:01am Height 71.50 inches 5'11.50" Weight 251.00 lb BP Systolic 120 mmHg BP Diastolic 74 mmHg Pain Level 7 low back and left leg BMI (Body Mass Index) 34.5 kg/m2 01/12/2013 2:10pm Height 71.50 inches 5'11.50" Weight 260.50 lb Heart Rate 79 /min BP Systolic Sitting 148 mmHg BP Diastolic Sitting 90 mmHg BMI (Body Mass Index) 35.8 kg/m2 Results Test Date Facility Test Result H/L Range Note CBC Auto Diff 08/30/2017 [facility] White Blood 4.7 10^3/uL N 3.5-10.[address] [place] [address] [phone] Red Blood Count 4.09 10^6/uL N 4.0-5.4 Hemoglobin 13.6 g/dL Low 14.0-18.0 Hematocrit 40 % Low 42-52 Mean Corpuscular Volume 99 fL High 80-94 Mean Corpuscular Hemoglobin 33 pg High 27-31 Mean Corpuscular HGB Conc 34 g/dL N 31-36 Red Cell Distribution Width 13 % N 10.5-15 Platelet Count 190 10^3/uL N 150-450 Mean Platelet Volume 7.7 um3 N 7.4-10.4 Abs Neutrophils 2.2 10^3/uL N 1.5-7.7 Abs Lymphocytes 1.4 10^3/uL N 1.0-4.8 Abs Monocytes 0.7 10^3/uL N 0-0.8 Abs Eosinophils 0.4 10^3/uL N 0-0.6 Abs Basophils 0 10^3/uL N 0-0.2 Abs Nucleated RBC 0 10^3/uL Granulocyte % 46.1 % N 38-83 Lymphocyte % 28.9 % N 25-47 Monocyte % 15.4 % High 0-7 Eosinophil % 8.6 % High 0-6 Basophil % 1.0 % N 0-2 Nucleated Red Blood Cells % 0.2 Comp Metabolic Panel 08/30/2017 [facility] Sodium 138 mmol/L Low 139-145 [address] [place] [address] [phone] Potassium 3.9 mmol/L N 3.5-5.0 Chloride 104 mmol/L N 101-111 Co2 Carbon Dioxide 29 mmol/L N 22-32 Anion Gap 5 mmol/L N 2-11 Glucose 95 mg/dL N 70-100 Blood Urea Nitrogen 14 mg/dL N 6-24 Creatinine 0.98 mg/dL N 0.67-1.17 BUN/Creatinine Ratio 14.3 N 8-20 Calcium 9.1 mg/dL N 8.6-10.3 Total Protein 8.6 g/dL N 6.4-8.9 Albumin 3.6 g/dL N 3.2-5.2 Globulin 5.0 g/dL High 2-4 Albumin/Globulin Ratio 0.7 Low 1-3 Total Bilirubin 0.50 mg/dL N 0.2-1.0 Alkaline Phosphatase 69 U/L N 34-104 Alt 16 U/L N 7-52 Ast 23 U/L N 13-39 Egfr Non- 73.8 >60 Egfr 94.9 >60 1 Laboratory test 08/30/2017 [facility] Magnesium 2.1 mg/dL N 1.9-2.7 finding [address] [place] [address] [phone] Laboratory test 07/10/2017 [facility] Magnesium <pending> finding [address] [place] [address] [phone] Basic Metabolic 01/14/2017 [facility] Sodium 135 mmol/L N 133- 145 Panel [address] [place] [address] [phone] Potassium 4.0 mmol/L N 3.5-5.0 Chloride 103 mmol/L N 101-111 Co2 Carbon Dioxide 30 mmol/L N 22-32 Anion Gap 2 mmol/L N 2-11 Glucose 108 mg/dL High 70-100 Blood Urea Nitrogen 12 mg/dL N 6-24 Creatinine 0.85 mg/dL N 0.67-1.17 BUN/Creatinine Ratio 14.1 N 8-20 Calcium 8.6 mg/dL N 8.6-10.3 Egfr Non- 87.0 N >60 Egfr 111.8 N >60 2 CBC Auto Diff 01/14/2017 [facility] White Blood 4.0 10^3/uL N 3.5-10.[address] [place] [address] [phone] Red Blood Count 3.56 10^6/uL Low 4.0-5.4 Hemoglobin 11.1 g/dL Low 14.0-18.0 Hematocrit 34 % Low 42-52 Mean Corpuscular Volume 95 fL High 80-94 Mean Corpuscular Hemoglobin 31 pg N 27-31 Mean Corpuscular HGB Conc 33 g/dL N 31-36 Red Cell Distribution Width 14 % N 10.5-15 Platelet Count 210 10^3/uL N 150-450 Mean Platelet Volume 8 um3 N 7.4-10.4 Abs Neutrophils 2.6 10^3/uL N 1.5-7.7 Abs Lymphocytes 1.0 10^3/uL N 1.0-4.8 Abs Monocytes 0.4 10^3/uL N 0-0.8 Abs Eosinophils 0.1 10^3/uL N 0-0.6 Abs Basophils 0 10^3/uL N 0-0.2 Abs Nucleated RBC 0.01 10^3/uL N Granulocyte % 64.5 % N 38-83 Lymphocyte % 23.8 % Low 25-47 Monocyte % 9.1 % High 1-9 Eosinophil % 2.3 % N 0-6 Basophil % 0.3 % N 0-2 Nucleated Red Blood Cells % 0.1 N Laboratory test 01/14/2017 [facility] Magnesium 2.0 mg/dL N 1.9-2.7 finding [address] [place] [address] [phone] B-Type Natriuretic Peptide BNP 147 pg/mL High 3 Basic Metabolic Panel 05/29/2013 [facility] Sodium 133 mmol/L 133-145 [address] [place] [address] [phone] Potassium 3.9 mmol/L 3.7-5.6 Chloride 97 mmol/L Low 101-111 Co2 Carbon Dioxide 31 mmol/L 22-32 Anion Gap 5 mmol/L 2-11 Glucose 85 mg/dL 70-100 Blood Urea Nitrogen 8 mg/dL 6-24 Creatinine 0.92 mg/dL 0.67-1.17 BUN/Creatinine Ratio 8.7 8-20 Calcium 8.7 mg/dL 8.6-10.3 Egfr Non- 80.2 >60 Egfr 103.1 >60 4 Laboratory test 05/29/2013 [facility] C Reactive 16.37 mg/L [address] [place] [address] [phone] Vancomycin Trough 12.4 g/mL 6 CBC Auto 05/29/2013 [facility] White Blood 4.7 10^3/uL Low 4.8 -10.[address] [place] [address] [phone] Red Blood Count 3.29 10^6/uL Low 4.0-5.4 Hemoglobin 9.3 g/dL Low 14.0-18.0 Hematocrit 30 % Low 42-52 Mean Corpuscular Volume 91 fL 80-94 Mean Corpuscular Hemoglobin 28 pg 27-31 Mean Corpuscular HGB Conc 31 g/dL 31-36 Red Cell Distribution Width 14 % 10.5-15 Platelet Count 342 10^3/uL 150-450 Mean Platelet Volume 8 um3 7.4-10.4 Abs Neutrophils 2.8 10^3/uL 1.5-7.7 Abs Lymphocytes 0.9 10^3/uL Low 1.0-4.8 Abs Monocytes 0.8 10^3/uL 0-0.8 Abs Eosinophils 0.2 10^3/uL 0-0.6 Abs Basophils 0.1 10^3/uL 0-0.2 Abs Nucleated RBC 0.01 10^3/uL Manual Differential 05/29/2013 [facility] Neutrophil % 63 % 38-[address] [place] [address] [phone] Lymphocytes % 20 % Low 25-47 Monocytes % 11 % 0-13 Eosinophils % 5 % 0-6 Basophil % 1 % 0-2 RBC Morphology Normal Normal Laboratory test 05/29/2013 [facility] Erythrocyte Sed 116 mm/Hr High 0-[address] [place] [address] [phone] Basic Metabolic 05/19/2013 [facility] Sodium 131 Low 133-[address] mmol/[place] [address] [phone] Potassium 4.3 mmol/L 3.5-5.0 Chloride 97 mmol/L Low 101-111 Co2 Carbon Dioxide 29.0 mmol/L 22-32 Anion Gap 5.0 mmol/L 2-11 Glucose 109 mg/dL High 70-100 Blood Urea Nitrogen 7 mg/dL 6-24 Creatinine 0.90 mg/dL 0.50-1.40 BUN/Creatinine Ratio 7.8 Low 8-20 Calcium 8.0 mg/dL Low 8.1-9.9 Egfr Non- 82.3 >60 Egfr 105.8 >60 7 Laboratory test 05/19/2013 [facility] Vancomycin 19.8 High 5.0 -10.0 [address] Trough ug/[place] [address] [phone] Basic Metabolic 05/15/2013 [facility] Sodium 130 Low 133-[address] mmol/[place] [address] [phone] Potassium 3.9 mmol/L 3.5-5.0 Chloride 98 mmol/L Low 101-111 Co2 Carbon Dioxide 26.0 mmol/L 22-32 Anion Gap 6.0 mmol/L 2-11 Glucose 91 mg/dL 70-100 Blood Urea Nitrogen 11 mg/dL 6-24 Creatinine 0.90 mg/dL 0.50-1.40 BUN/Creatinine Ratio 12.2 8-20 Calcium 7.3 mg/dL Low 8.1-9.9 Egfr Non- 82.3 >60 Egfr 105.8 >60 9 Laboratory test 05/15/2013 [facility] Vancomycin 19.0 High 5.0 -10.0 [address] Trough ug/[place] [address] [phone] C Reactive Protein 13.4 mg/dL High Less than 0.5 CBC Auto Diff 05/15/2013 [facility] White Blood 6.0 10^3/uL 4.8-10.[address] [place] [address] [phone] Red Blood Count 2.39 10^6/uL Low 4.0-5.4 Hemoglobin 6.7 g/dL Low 14.0-18.0 Hematocrit 22 % Low 42-52 Mean Corpuscular Volume 92 fL 80-94 Mean Corpuscular Hemoglobin 28 pg 27-31 Mean Corpuscular HGB Conc 30 g/dL Low 31-36 Red Cell Distribution Width 14 % 10.5-15 Platelet Count 223 10^3/uL 150-450 Mean Platelet Volume 8 um3 7.4-10.4 Abs Neutrophils 4.3 10^3/uL 1.5-7.7 Abs Lymphocytes 0.8 10^3/uL Low 1.0-4.8 Abs Monocytes 0.6 10^3/uL 0-0.8 Abs Eosinophils 0.2 10^3/uL 0-0.6 Abs Basophils 0.1 10^3/uL 0-0.2 Abs Nucleated RBC 0 10^3/uL Granulocyte % 72.0 % 38-83 Lymphocyte % 13.7 % Low 25-47 Monocyte % 10.0 % High 1-9 Eosinophil % 2.9 % 0-6 Basophil % 1.4 % 0-2 Nucleated Red Blood Cells % 0 Laboratory test 05/15/2013 [facility] Erythrocyte Sed 112 mm/Hr High 0-[address] [place] [address] [phone] Urinalysis 04/01/2013 [facility] Urine Color Clarita [address] [place] [address] [phone] Urine Appearance Clear Urine Specific Loma 1.030 1.010-1.030 Urine Esterase Negative Negative Urine Nitrate Negative Negative Urine Urobilinogen Negative E.U./dL Negative Urine Protein 2+ mg/dL Abnormal Negative Urine pH 6.0 5-9 Urine Blood Negative Negative Urine Ketones Trace mg/dL Abnormal Negative Urine Bilirubin 1+ Abnormal Negative Urine Glucose Negative mg/dL Negative Urine Microscopic 04/01/2013 [facility] Urine WBC 1+ (<3 None Seen [address] /hpf) [place], [place] [id number] [phone] Urine RBC None Seen None Seen Urine Mucus Present /lpf Absent Bacteria Urine None Seen None Seen Comp Metabolic Panel 03/31/2013 [facility] Sodium 133 mmol/L 133-[address] [place] [address] [phone] Potassium 3.5 mmol/L 3.5-5.0 Chloride 100 mmol/L Low 101-111 Co2 Carbon Dioxide 27.0 mmol/L 22-32 Anion Gap 6.0 mmol/L 2-11 Glucose 145 mg/dL High 70-100 Blood Urea Nitrogen 18 mg/dL 6-24 Creatinine 1.10 mg/dL 0.50-1.40 BUN/Creatinine Ratio 16.4 8-20 Calcium 9.2 mg/dL 8.1-9.9 Total Protein 7.8 g/dL 6.2-8.1 Albumin 3.4 g/dL 3.2-5.2 Globulin 4.4 g/dL High 2-4 Albumin/Globulin Ratio 0.8 Low 1-3 Total Bilirubin 1.2 mg/dL 0.4-1.5 Alkaline Phosphatase 42 U/L 30-110 Alt 19 U/L 14-54 Ast 24 U/L 12-42 Egfr Non- 65.3 >60 Egfr 83.9 >60 11 Laboratory test 03/31/2013 [facility] C Reactive 16.5 mg/dL High Less than finding [address] Protein 0.5 [place], [place] [id number] [phone] CBC Auto Diff 03/31/2013 [facility] White Blood 10.1 4.8- 10.[address] Count 10^3/uL [place], [place] [id number] [phone] Red Blood Count 3.93 10^6/uL Low 4.0-5.4 Hemoglobin 12.7 g/dL Low 14.0-18.0 Hematocrit 38 % Low 42-52 Mean Corpuscular Volume 96 fL High 80-94 Mean Corpuscular Hemoglobin 32 pg High 27-31 Mean Corpuscular HGB Conc 34 g/dL 31-36 Red Cell Distribution Width 14 % 10.5-15 Platelet Count 241 10^3/uL 150-450 Mean Platelet Volume 9 um3 7.4-10.4 Abs Neutrophils 7.9 10^3/uL High 1.5-7.7 Abs Lymphocytes 0.5 10^3/uL Low 1.0-4.8 Abs Monocytes 1.6 10^3/uL High 0-0.8 Abs Eosinophils 0 10^3/uL 0-0.6 Abs Basophils 0 10^3/uL 0-0.2 Abs Nucleated RBC 0.01 10^3/uL Manual Differential 03/31/2013 [facility] Neutrophil % 80 % 38-[address] [place] [address] [phone] Band % 4 % 0-8 Lymphocytes % 6 % Low 25-47 Monocytes % 10 % 0-13 RBC Morphology Normal Normal Laboratory test 03/31/2013 [facility] Troponin I 0.02 ng/mL 0 -0.06 12 finding [address] [place] [address] [phone] Basic Metabolic 03/06/2013 [facility] Sodium 138 mmol/L 133- 145 Panel [address] [place] [address] [phone] Potassium 3.7 mmol/L 3.5-5.0 Chloride 104 mmol/L 101-111 Co2 Carbon Dioxide 27.0 mmol/L 22-32 Anion Gap 7.0 mmol/L 2-11 Glucose 93 mg/dL 70-100 Blood Urea Nitrogen 14 mg/dL 6-24 Creatinine 0.90 mg/dL 0.50-1.40 BUN/Creatinine Ratio 15.6 8-20 Calcium 9.1 mg/dL 8.1-9.9 Egfr Non- 82.3 >60 Egfr 105.8 >60 13 Liver Function 03/06/2013 [facility] Total Protein 6.5 g/dL 6.2-8.1 Panel [address] [place] [address] [phone] Albumin 3.6 g/dL 3.2-5.2 Globulin 2.9 g/dL 2-4 Albumin/Globulin Ratio 1.2 1-3 Total Bilirubin 0.7 mg/dL 0.4-1.5 Direct Bilirubin 0.1 mg/dL 0.1-0.5 Indirect Bilirubin 0.6 mg/dL 0.3-1.0 Alkaline Phosphatase 57 U/L 30-110 Alt 39 U/L 14-54 Ast 47 U/L High 12-42 Laboratory test 03/06/2013 [facility] C Reactive < 0.5 Less than finding 101 [facility] Protein mg/dL 0.5 [place] [address] [phone] CBC Auto Diff 03/06/2013 [facility] White Blood 4.0 Low 4.8- 10.[address] Count 10^3/[place] [address] [phone] Red Blood Count 4.31 10^6/uL 4.0-5.4 Hemoglobin 13.9 g/dL Low 14.0-18.0 Hematocrit 41 % Low 42-52 Mean Corpuscular Volume 95 fL High 80-94 Mean Corpuscular Hemoglobin 32 pg High 27-31 Mean Corpuscular HGB Conc 34 g/dL 31-36 Red Cell Distribution Width 14 % 10.5-15 Platelet Count 208 10^3/uL 150-450 Mean Platelet Volume 9 um3 7.4-10.4 Abs Neutrophils 2.0 10^3/uL 1.5-7.7 Abs Lymphocytes 1.2 10^3/uL 1.0-4.8 Abs Monocytes 0.6 10^3/uL 0-0.8 Abs Eosinophils 0.2 10^3/uL 0-0.6 Abs Basophils 0 10^3/uL 0-0.2 Abs Nucleated RBC 0 10^3/uL Manual Differential 03/06/2013 [facility] Neutrophil % 56 % 38-[address] [place] [address] [phone] Lymphocytes % 25 % 25-47 Monocytes % 12 % 0-13 Eosinophils % 5 % 0-6 Reactive Lymph % 2 % 0-6 RBC Morphology Normal Normal Laboratory test 03/06/2013 [facility] Erythrocyte Sed 47 mm/Hr High 0-[address] [place] [address] [phone] Laboratory test 01/12/2013 [facility] C Reactive 0.6 mg/dL High Less finding [address] Protein than 0.5 [place] [address] [phone] Erythrocyte Sed Rate 69 mm/Hr High 0-40 Comp Metabolic Panel 01/12/2013 [facility] Sodium 138 mmol/L 133-[address] [place] [address] [phone] Potassium 4.0 mmol/L 3.5-5.0 Chloride 100 mmol/L Low 101-111 Co2 Carbon Dioxide 30.0 mmol/L 22-32 Anion Gap 8.0 mmol/L 2-11 Glucose 86 mg/dL 70-100 Blood Urea Nitrogen 32 mg/dL High 6-24 Creatinine 1.10 mg/dL 0.50-1.40 BUN/Creatinine Ratio 29.1 High 8-20 Calcium 9.8 mg/dL 8.1-9.9 Total Protein 7.6 g/dL 6.2-8.1 Albumin 3.7 g/dL 3.2-5.2 Globulin 3.9 g/dL 2-4 Albumin/Globulin Ratio 0.9 Low 1-3 Total Bilirubin 0.5 mg/dL 0.4-1.5 Alkaline Phosphatase 55 U/L 30-110 Alt 41 U/L 14-54 Ast 29 U/L 12-42 Egfr Non- 65.3 >60 Egfr 83.9 >60 14 CBC Auto Diff 01/12/2013 [facility] White Blood 8.5 10^3/uL 4.8-10.[address] [place] [address] [phone] Red Blood Count 4.28 10^6/uL 4.0-5.4 Hemoglobin 14.3 g/dL 14.0-18.0 Hematocrit 42 % 42-52 Mean Corpuscular Volume 98 fL High 80-94 Mean Corpuscular Hemoglobin 34 pg High 27-31 Mean Corpuscular HGB Conc 34 g/dL 31-36 Red Cell Distribution Width 14 % 10.5-15 Platelet Count 306 10^3/uL 150-450 Mean Platelet Volume 8 um3 7.4-10.4 Abs Neutrophils 5.3 10^3/uL 1.5-7.7 Abs Lymphocytes 2.4 10^3/uL 1.0-4.8 Abs Monocytes 0.8 10^3/uL 0-0.8 Abs Eosinophils 0 10^3/uL 0-0.6 Abs Basophils 0 10^3/uL 0-0.2 Abs Nucleated RBC 0.01 10^3/uL Granulocyte % 61.9 % 38-83 Lymphocyte % 28.2 % 25-47 Monocyte % 9.1 % High 1-9 Eosinophil % 0.5 % 0-6 Basophil % 0.3 % 0-2 Nucleated Red Blood Cells % 0.1 Laboratory test 12/22/2012 [facility] Erythrocyte Sed 42 mm/Hr High 0-[address] [place] [address] [phone] CBC Auto Diff 12/22/2012 [facility] White Blood 10.9 High 4.8- 10.[address] Count 10^3/[place] [address] [phone] Red Blood Count 4.22 10^6/uL 4.0-5.4 Hemoglobin 13.5 g/dL Low 14.0-18.0 Hematocrit 41 % Low 42-52 Mean Corpuscular Volume 98 fL High 80-94 Mean Corpuscular Hemoglobin 32 pg High 27-31 Mean Corpuscular HGB Conc 33 g/dL 31-36 Red Cell Distribution Width 14 % 10.5-15 Platelet Count 252 10^3/uL 150-450 Mean Platelet Volume 9 um3 7.4-10.4 Abs Neutrophils 7.7 10^3/uL 1.5-7.7 Abs Lymphocytes 2.1 10^3/uL 1.0-4.8 Abs Monocytes 1.0 10^3/uL High 0-0.8 Abs Eosinophils 0.1 10^3/uL 0-0.6 Abs Basophils 0.1 10^3/uL 0-0.2 Abs Nucleated RBC 0 10^3/uL Granulocyte % 70.7 % 38-83 Lymphocyte % 19.0 % Low 25-47 Monocyte % 9.2 % High 1-9 Eosinophil % 0.6 % 0-6 Basophil % 0.5 % 0-2 Nucleated Red Blood Cells % 0 Laboratory test 12/22/2012 [facility] C Reactive 0.5 mg/dL Less than finding [address] Protein 0.5 [place] [address] [phone] Comp Metabolic 12/22/2012 [facility] Sodium 136 mmol/L 133- [address] [place] [address] [phone] Potassium 4.4 mmol/L 3.5-5.0 Chloride 101 mmol/L 101-111 Co2 Carbon Dioxide 29.0 mmol/L 22-32 Anion Gap 6.0 mmol/L 2-11 Glucose 108 mg/dL High 70-100 Blood Urea Nitrogen 24 mg/dL 6-24 Creatinine 0.90 mg/dL 0.50-1.40 BUN/Creatinine Ratio 26.7 High 8-20 Calcium 9.5 mg/dL 8.1-9.9 Total Protein 7.6 g/dL 6.2-8.1 Albumin 3.3 g/dL 3.2-5.2 Globulin 4.3 g/dL High 2-4 Albumin/Globulin Ratio 0.8 Low 1-3 Total Bilirubin 0.6 mg/dL 0.4-1.5 Alkaline Phosphatase 44 U/L 30-110 Alt 45 U/L 14-54 Ast 28 U/L 12-42 Egfr Non- 82.3 >60 Egfr 105.8 >60 15 Tg Hep-2 11/28/2012 [facility] [facility] Tg Pattern Speckled Negative [address] [place] [address] [phone] Tg Titer Greater than 102 <SEE NOTE> <1:80 16 Tg Reviewed By MD Jeremiah Barger <SEE NOTE> 17 Arthritis Panel 11/28/2012 [facility] Erythrocyte Sed 91 mm/Hr High 0-[address] [place] [address] [phone] Uric Acid 4.5 mg/dL 2.6-7.2 Tg (Anti-Nuclear AB) Screen Reflexed to FA Abnormal Negative Rheumatoid Factor 118 IU/mL Abnormal <15 18 1 Because ethnic data is not always readily available, this report includes an eGFR for both -Americans and non- Americans. The National Kidney Disease Education Program (NKDEP) does not endorse the use of the MDRD equation for patients that are not between the ages of 18 and 70, are , have extremes of body size, muscle mass, or nutritional status, or are non- or non-. According to the National Kidney Foundation, irrespective of diagnosis, the stage of the disease is based on the level of kidney function: Stage Description GFR(mL/min/1.73 m(2)) 1 Kidney damage with normal or decreased GFR 90 2 Kidney damage with mild decrease in GFR 60-89 3 Moderate decrease in GFR 30-59 4 Severe decrease in GFR 15-29 5 Kidney failure <15 (or dialysis) 2 Because ethnic data is not always readily available, this report includes an eGFR for both -Americans and non- Americans. The National Kidney Disease Education Program (NKDEP) does not endorse the use of the MDRD equation for patients that are not between the ages of 18 and 70, are , have extremes of body size, muscle mass, or nutritional status, or are non- or non-. According to the National Kidney Foundation, irrespective of diagnosis, the stage of the disease is based on the level of kidney function: Stage Description GFR(mL/min/1.73 m(2)) 1 Kidney damage with normal or decreased GFR 90 2 Kidney damage with mild decrease in GFR 60-89 3 Moderate decrease in GFR 30-59 4 Severe decrease in GFR 15-29 5 Kidney failure <15 (or dialysis) 3 >100 to <200 pg/mL: likely compensated congestive heart failure (CHF) 200 to 400 pg/mL: likely moderate CHF >400 pg/mL: likely moderate to severe CHF 4 Because ethnic data is not always readily available, this report includes an eGFR for both -Americans and non- Americans. The National Kidney Disease Education Program (NKDEP) does not endorse the use of the MDRD equation for patients that are not between the ages of 18 and 70, are , have extremes of body size, muscle mass, or nutritional status, or are non- or non-. According to the National Kidney Foundation, irrespective of diagnosis, the stage of the disease is based on the level of kidney function: Stage Description GFR(mL/min/1.73 m(2)) 1 Kidney damage with normal or decreased GFR 90 2 Kidney damage with mild decrease in GFR 60-89 3 Moderate decrease in GFR 30-59 4 Severe decrease in GFR 15-29 5 Kidney failure <15 (or dialysis) 5 Low risk: <1.0 mg/L Average risk: 1.0-3.0 mg/L High risk: >3.0 mg/L Acute inflammation: >10.0 mg/L 6 15-20 for HCAP, VAP, +++Osteomyelitis, Endocarditis, Meningitis 10-15 for All Other Infections 7 Because ethnic data is not always readily available, this report includes an eGFR for both -Americans and non- Americans. The National Kidney Disease Education Program (NKDEP) does not endorse the use of the MDRD equation for patients that are not between the ages of 18 and 70, are , have extremes of body size, muscle mass, or nutritional status, or are non- or non-. According to the National Kidney Foundation, irrespective of diagnosis, the stage of the disease is based on the level of kidney function: Stage Description GFR(mL/min/1.73 m(2)) 1 Kidney damage with normal or decreased GFR 90 2 Kidney damage with mild decrease in GFR 60-89 3 Moderate decrease in GFR 30-59 4 Severe decrease in GFR 15-29 5 Kidney failure <15 (or dialysis) 8 The detection limit for Vancomycin is 3.5 ug/ml . Values less than 3.5 ug/ml cannot be accurately measured. Recommended Vancomycin trough levels for: Bacterial meningitis* 15-20 mcg/ml Healthcare associated pneumonia+ 15-20 mcg/ml Ventilator associated pneumonia+ 15-20 mcg/ml Hospital associated pneumonia+ 15-20 mcg/ml Infective Endocarditis# 10-15 mcg/ml * Clin infect Dis 2004; 39:1267-84 + AM J Respir Crit Care Med 2005; 171:388-416 # Circulation 2005; [id number] 9 Because ethnic data is not always readily available, this report includes an eGFR for both -Americans and non- Americans. The National Kidney Disease Education Program (NKDEP) does not endorse the use of the MDRD equation for patients that are not between the ages of 18 and 70, are , have extremes of body size, muscle mass, or nutritional status, or are non- or non-. According to the National Kidney Foundation, irrespective of diagnosis, the stage of the disease is based on the level of kidney function: Stage Description GFR(mL/min/1.73 m(2)) 1 Kidney damage with normal or decreased GFR 90 2 Kidney damage with mild decrease in GFR 60-89 3 Moderate decrease in GFR 30-59 4 Severe decrease in GFR 15-29 5 Kidney failure <15 (or dialysis) 10 The detection limit for Vancomycin is 3.5 ug/ml . Values less than 3.5 ug/ml cannot be accurately measured. Recommended Vancomycin trough levels for: Bacterial meningitis* 15-20 mcg/ml Healthcare associated pneumonia+ 15-20 mcg/ml Ventilator associated pneumonia+ 15-20 mcg/ml Hospital associated pneumonia+ 15-20 mcg/ml Infective Endocarditis# 10-15 mcg/ml * Clin infect Dis 2004; 39:1267-84 + AM J Respir Crit Care Med 2005; 171:388-416 # Circulation 2005; [id number] 11 Because ethnic data is not always readily available, this report includes an eGFR for both -Americans and non- Americans. The National Kidney Disease Education Program (NKDEP) does not endorse the use of the MDRD equation for patients that are not between the ages of 18 and 70, are , have extremes of body size, muscle mass, or nutritional status, or are non- or non-. According to the National Kidney Foundation, irrespective of diagnosis, the stage of the disease is based on the level of kidney function: Stage Description GFR(mL/min/1.73 m(2)) 1 Kidney damage with normal or decreased GFR 90 2 Kidney damage with mild decrease in GFR 60-89 3 Moderate decrease in GFR 30-59 4 Severe decrease in GFR 15-29 5 Kidney failure <15 (or dialysis) 12 Reference Range and Interpretation: TnI (ng/mL) Interpretation Less Than 0.06 ng/mL Not supportive of diagnosis of ND 0.06 - 0.50 ng/mL Indeterminate: suggest serial studies if clinically indicated. Greater than 0.5 ng/mL Consistent with diagnosis of ND 13 Because ethnic data is not always readily available, this report includes an eGFR for both -Americans and non- Americans. The National Kidney Disease Education Program (NKDEP) does not endorse the use of the MDRD equation for patients that are not between the ages of 18 and 70, are , have extremes of body size, muscle mass, or nutritional status, or are non- or non-. According to the National Kidney Foundation, irrespective of diagnosis, the stage of the disease is based on the level of kidney function: Stage Description GFR(mL/min/1.73 m(2)) 1 Kidney damage with normal or decreased GFR 90 2 Kidney damage with mild decrease in GFR 60-89 3 Moderate decrease in GFR 30-59 4 Severe decrease in GFR 15-29 5 Kidney failure <15 (or dialysis) 14 Because ethnic data is not always readily available, this report includes an eGFR for both -Americans and non- Americans. The National Kidney Disease Education Program (NKDEP) does not endorse the use of the MDRD equation for patients that are not between the ages of 18 and 70, are , have extremes of body size, muscle mass, or nutritional status, or are non- or non-. According to the National Kidney Foundation, irrespective of diagnosis, the stage of the disease is based on the level of kidney function: Stage Description GFR(mL/min/1.73 m(2)) 1 Kidney damage with normal or decreased GFR 90 2 Kidney damage with mild decrease in GFR 60-89 3 Moderate decrease in GFR 30-59 4 Severe decrease in GFR 15-29 5 Kidney failure <15 (or dialysis) 15 Because ethnic data is not always readily available, this report includes an eGFR for both -Americans and non- Americans. The National Kidney Disease Education Program (NKDEP) does not endorse the use of the MDRD equation for patients that are not between the ages of 18 and 70, are , have extremes of body size, muscle mass, or nutritional status, or are non- or non-. According to the National Kidney Foundation, irrespective of diagnosis, the stage of the disease is based on the level of kidney function: Stage Description GFR(mL/min/1.73 m(2)) 1 Kidney damage with normal or decreased GFR 90 2 Kidney damage with mild decrease in GFR 60-89 3 Moderate decrease in GFR 30-59 4 Severe decrease in GFR 15-29 5 Kidney failure <15 (or dialysis) 16 Greater than [id number] Jeremiah Ho 18 Test Performed by: [place] [address] [employer] Installer: Chris Roman III, M.D. Procedures Date Code Description Status 06/29/2018 98364 Icd Eval Sing,Dual,Multi Lead Remote Recpt Transm Tech Rev Completed Tech S 06/29/2018 71516 Pacemaker Check Remote Up To 90Days Single,Dual,Multiple Completed Lead 05/09/2018 13333 ECHO Transthorasic Realtime 2D W Doppler & Color Flow Hosp Completed 05/09/2018 30323 Treadmill Interp/Report Only Completed 05/09/2018 23280 Stress Test Supervsn W/Out I/R Completed 12/24/2017 74640 Pace Maker Eval W/Iterative Adjment Dual Lead Completed 12/24/2017 13260 Pace Maker Eval W/Iterative Adjment Dual Lead Completed 07/10/2017 49509 EKG Tracing & Interpretation Completed 06/27/2017 12576 Pace Maker Eval W/Iterative Adjment Dual Lead Completed 06/27/2017 05235 Pace Maker Eval W/Iterative Adjment Dual Lead Completed 01/09/2017 79512 EKG Tracing & Interpretation Completed 12/25/2016 04189 Pace Maker Eval W/Iterative Adjment Dual Lead Completed 11/12/2016 86023 ECHO Transthorasic Realtime 2D W Doppler & Color Flow Hosp Completed 11/12/2016 92606 Hemiarthroplasty/ Partial Hip Replacement W Or W/O Completed Prosthesis 11/12/2016 16817 Hemiarthroplasty/ Partial Hip Replacement W Or W/O Completed Prosthesis 04/25/2016 04213 Pace Maker Eval W/Iterative Adjment Dual Lead Completed 10/31/2015 11639 Pace Maker Eval W/Iterative Adjment Dual Lead Completed 05/02/2015 56446 Pace Maker Eval W/Iterative Adjment Dual Lead Completed 11/08/2014 16545 Pace Maker Eval W/Iterative Adjment Dual Lead Completed 05/10/2014 58000 Pace Maker Eval W/Iterative Adjment Dual Lead Completed 04/06/2014 20813 EKG, Interpretation Only Completed 04/06/2014 15634 Interrogation Device Eval In Person W/DR Completed Analysis,Single,Dual,Mul 04/05/2014 91530 EKG, Interpretation Only Completed 04/05/2014 74[address]emaker [address] Sequential Atrial And Ventricular Completed 07/25/2013 31931 EKG, Interpretation Only Completed 06/24/2013 27187 EKG, Interpretation Only Completed 04/28/2013 92193 EKG, Interpretation Only Completed 04/16/2013 52172 EKG, Interpretation Only Completed 04/05/2013 24440 Color Flow Doppler/Interp & Reprt Completed 04/05/2013 05809 Pulse Wave/Continuous-Interp.RPT Completed 04/05/2013 27910 Echocardiography, Transesophageal, Real Time W/Image 2D Completed W/W/O M-M 04/04/2013 82430 EKG, Interpretation Only Completed 04/03/2013 50081 ECHO Transthorasic Realtime 2D W Doppler & Color Flow Hosp Completed 04/03/2013 10735 EKG, Interpretation Only Completed 04/02/2013 41137 EKG, Interpretation Only Completed 04/02/2013 91202 Insert Non-Tunneled Venous Catether Completed 04/02/2013 44494 Endo-Trachial Tube Completed 01/19/2013 84520 Treadmill Interp/Report Only Completed 01/19/2013 77019 Stress Test Supervsn W/Out I/R Completed 01/19/2013 45804 EKG, Interpretation Only Completed 01/18/2013 55380 EKG, Interpretation Only Completed Encounters Type Date Location Provider Dx Diagnosis Office Visit 07/14/2018 [facility] Mile Ahumada NP J98.4 Other disorders of 2:00p lung I48.0 Paroxysmal atrial fibrillation 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 disease of [place] cor art w oth ang pctrs I48.0 Paroxysmal atrial fibrillation I10 Essential (primary) hypertension E78.00 Pure hypercholesterolemia, unspecified I49.5 Sick sinus syndrome I44.2 Atrioventricular block, complete Office Visit 01/09/2017 11:40a [facility] Corbin Hood I48.0 Paroxysmal atrial Reza Thomas fibrillation I44.2 Atrioventricular block, complete Z95.0 Presence of cardiac pacemaker I25.118 [facility] [place] cor art w oth ang pctrs I50.9 Heart failure, unspecified I10 Essential (primary) hypertension Office Visit 12/10/2016 [facility] Iza R11.2 Nausea with 1:51p Jarvis, ENGINEER SPECIALIST vomiting, unspecified Office Visit 12/04/2016 [facility] Iza R11.2 Nausea with 3:15p Jarvis, ENGINEER SPECIALIST vomiting, unspecified [facility] F[facility] of unsp 3:40p Assmaurice thakkar M.D. 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 unsp part of Hospitalists neck of unsp femur, init I25.10 [facility] disease [place] coronary artery w/o ang pctrs E78.5 Hyperlipidemia, unspecified I10 Essential (primary) hypertension Office Visit 11/11/2016 [facility] Chan S72.009A Fracture of 3:38p Assoc,maurice Weinberg N.P. 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 Embolism And Hospitalists Infarction Other 453.9 Embolism & Thrombosis Venous Unspec Site 786.52 Painful Respiration 287.5 Thrombocytopenia Unspec Office Visit 07/26/2013 1:34p [facility] 415.19 Pulmonary Assocmaurice M.D. Embolism And Hospitalists Infarction Other 453.9 Embolism & Thrombosis Venous Unspec Site 786.52 Painful Respiration 287.5 Thrombocytopenia Unspec Office Visit 07/25/2013 1:34p [facility] 415.19 Pulmonary Assmaurice thakkar M.D. Embolism And Hospitalists Infarction Other 453.9 Embolism & Thrombosis Venous Unspec Site 786.52 Painful Respiration 287.5 Thrombocytopenia Unspec Office Visit 07/24/2013 1:33p [facility] 415.19 Pulmonary Assmaurice thakkar M.D. Embolism And Hospitalists Infarction Other 453.9 Embolism & Thrombosis Venous Unspec Site 786.52 Painful Respiration 287.5 Thrombocytopenia Unspec Office Visit 07/23/2013 1:32p [facility] 415.19 Pulmonary Assmaurice thakkar M.D. Embolism And Hospitalists Infarction Other 453.9 Embolism & Thrombosis Venous Unspec Site 786.52 Painful Respiration 287.5 Thrombocytopenia Unspec Office Visit 07/22/2013 [facility] 415.19 Pulmonary Assmaurice thakkar M.D. Embolism And Hospitalists Infarction Other 453.9 Embolism & Thrombosis Venous Unspec Site 786.52 Painful Respiration 287.5 Thrombocytopenia Unspec Office Visit 07/21/2013 1:26p [facility] Gab Chanko, 415.19 Pulmonary Assocmaurice M.D. Embolism And Hospitalists Infarction Other 453.9 Embolism & Thrombosis Venous Unspec Site 786.52 Painful Respiration 414.01 Coronary Atherosclerosis [place] Office Visit 07/01/2013 11:24a [facility] 787.01 Nausea W/ Assocmaurice M.D. 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 Hyponatremia Hospitalists 401.9 Hypertension Unspec 722.90 Disc Disorder Other & Unspec Unspec Region 790.95 Elevated C-Reactive Protein Office Visit 06/25/2013 [place] Micah Pack, 790.95 Elevated 11:21a Assmaurice thakkar M.D. 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 C-Reactive Hospitalists Protein 276.1 Hyposmolality & Or Hyponatremia 722.90 Disc Disorder Other & Unspec Unspec Region 401.9 Hypertension Unspec Office Visit 06/23/2013 11:20a [place] Micah Corleyhn, 722.90 Disc Disorder Assmaurice thakkar M.D. Other & Unspec Hospitalists Unspec Region 401.9 Hypertension Unspec 790.95 Elevated C-Reactive Protein 276.1 Hyposmolality & Or Hyponatremia Office Visit 06/22/2013 11:19a [facility] Berenice Pack, 722.90 Disc Disorder Assmaurice thakkar M.D. Other & Unspec Hospitalists Unspec Region 724.2 Lumbago 790.95 Elevated C-Reactive Protein 276.1 Hyposmolality & Or Hyponatremia Office Visit 06/22/2013 1:57p [facility] Alfonso Rodriguez 780.60 Fever, For Infectious Belinda Bustillo. Unspecified Diseases 730.28 Osteomyelitis Unspec Other Sites Office Visit 06/21/2013 11:18a [facility] Claudine 789.07 Pain Abdominal Assoc,maurice Velez D.O. Generalized Hospitalists 724.2 Lumbago 790.95 Elevated C-Reactive Protein 276.1 Hyposmolality & Or Hyponatremia Office Visit 06/21/2013 1:41p [facility] Alfonso Rodriguez 780.60 Fever, For Infectious Keny MMaria EugeniaD. Unspecified Diseases 730.28 Osteomyelitis Unspec Other Sites Office Visit 06/20/2013 11:17a [facility] Claudine 789.07 Pain Abdominal Assoc,maurice Velez D.O. Generalized Hospitalists 724.2 Lumbago 790.95 Elevated C-Reactive Protein 276.1 Hyposmolality & Or Hyponatremia Office Visit 06/19/2013 11:17a [facility] Claudine 789.07 Pain Abdominal Assoc,maurice Velez D.O. Generalized Hospitalists 724.2 Lumbago 790.95 Elevated C-Reactive Protein 276.1 Hyposmolality & Or Hyponatremia Office Visit 06/02/2013 [facility] Alfonso Rodriguez 038.11 Methicillin 9:30a For Infectious Reza Bustillo Susceptible Diseases Septicemia Staphylococcus Aureus 730.00 Osteomyelitis Acute Site Unspec Office Visit 05/13/2013 9:59a [facility] Shravan Rodriguez 790.7 Bacteremia Infectious Diseases Reza Bustillo 041.00 Streptococcus Unspec 487.1 Influenza W/ Other Respiratory Manifestations Office Visit 05/13/2013 12:52p [facility] Rashawn [place], 584.5 Acute Kidney Assoc,maurice Cobb Failure With Hospitalists Lesion Of Tubular Necrosis 567.31 Psoas Muscle Abscess 790.7 Bacteremia 730.00 Osteomyelitis Acute Site Unspec Office Visit 05/12/2013 2:34p [facility] Rashawn Westbrook, 584.5 Acute Kidney Assoc,maurice Cobb Failure With Hospitalists Lesion Of Tubular Necrosis 567.31 Psoas Muscle Abscess 790.7 Bacteremia 730.00 Osteomyelitis Acute Site Unspec Office Visit 05/11/2013 2:09p [facility] Shravan Rodriguez 790.7 Bacteremia Infectious Melony Bustillo M.D. 041.00 Streptococcus Unspec 487.1 Influenza W/ Other Respiratory Manifestations Office Visit 05/11/2013 12:49p [facility] Gab Rehman 584.5 Acute Kidney Assoc,maurice Cobb Failure With Hospitalists Lesion Of Tubular Necrosis 567.31 Psoas Muscle Abscess 790.7 Bacteremia 730.00 Osteomyelitis Acute Site Unspec Office Visit 05/10/2013 12:48p [facility] Gab Rehman 584.5 Acute Kidney Assoc,maurice Cobb Failure With Hospitalists Lesion Of Tubular Necrosis 567.31 Psoas Muscle Abscess 790.7 Bacteremia 730.00 Osteomyelitis Acute Site Unspec Office Visit 05/09/2013 12:[facility]p [facility], 584.5 Acute Kidney Assoc,pc M.DMaria Eugenia Failure With Hospitalists Lesion Of Tubular Necrosis 567.31 Psoas Muscle Abscess 790.7 Bacteremia 730.00 Osteomyelitis Acute Site Unspec Office Visit 05/08/2013 11:15a [facility] Gab Rehman, 584.5 Acute Kidney Assoc,pc M.DMaria Eugenia Failure With Hospitalists Lesion Of Tubular Necrosis 567.31 Psoas Muscle Abscess 790.7 Bacteremia 730.00 Osteomyelitis Acute Site Unspec Office Visit 05/07/2013 11:15a [facility], 584.5 Acute Kidney Assoc,pc M.DMaria Eugenia Failure With Hospitalists Lesion Of Tubular Necrosis 567.31 Psoas Muscle Abscess 790.7 Bacteremia 730.00 Osteomyelitis Acute Site Unspec Office Visit 05/06/2013 11:14a [facility] Gab Rehman, 584.5 Acute Kidney Assoc,pc M.DMaria uEgenia Failure With Hospitalists [place]ion Of Tubular Necrosis 567.31 Psoas Muscle Abscess 790.7 Bacteremia 730.00 Osteomyelitis Acute Site Unspec Office Visit 05/06/2013 11:24a [facility] Shravan Rodriguez 790.7 Bacteremia Infectious Diseases Reza Bustillo 041.00 Streptococcus Unspec 487.1 Influenza W/ Other Respiratory Manifestations Office Visit 05/05[facility] 584.5 [facility] Assoc,maurice MОльга Failure With Hospitalists Lesion Of Tubular Necrosis 567.31 Psoas Muscle Abscess 790.7 Bacteremia 730.00 Osteomyelitis Acute Site Unspec Office Visit 05/05/2013 10:12a [place] Mickey Rodriguez 790.7 Bacteremia Infectious Melony Bustillo M.D. 041.00 Streptococcus Unspec 487.1 Influenza W/ Other Respiratory Manifestations Office Visit 05/04/2013 12:47p [facility] 584.5 Acute Kidney Assoc,maurice Velez D.O. Failure With Hospitalists Lesion Of Tubular Necrosis 567.31 Psoas Muscle Abscess 790.7 Bacteremia 730.00 Osteomyelitis Acute Site Unspec Office Visit 05/04/2013 8:46a [place] Mickey Rodriguez 790.7 Bacteremia Infectious Diseases Reza Bustillo 041.10 Bacterial Infection Staphylococcus Unspec 487.1 Influenza W/ Other Respiratory Manifestations Office Visit 05/03/2013 12:47p [facility] Claudine Velez, 790.7 Bacteremia Assoc, Hospitalists JenniferOMaria Eugenia 567.31 Psoas Muscle Abscess 730.00 Osteomyelitis Acute Site Unspec 414.01 Coronary Atherosclerosis [place] Office Visit 05/02/2013 12:46p [facility] Claudine Velez, 790.7 Bacteremia Assoc, Hospitalists Jose 567.31 Psoas Muscle Abscess 730.00 Osteomyelitis Acute Site Unspec 414.01 Coronary Atherosclerosis [place] Office Visit 05/01/2013 12:45p [facility] Claudine Velez, 790.7 Bacteremia Assoc, Hospitalists Jose 567.31 Psoas Muscle Abscess 730.00 Osteomyelitis Acute Site Unspec 414.01 Coronary Atherosclerosis [place] Office Visit 04/30/2013 1:48p [facility] Shravan Rodriguez 790.7 Bacteremia Infectious Diseases Reza Bustillo 041.10 Bacterial Infection Staphylococcus Unspec 487.1 Influenza W/ Other Respiratory Manifestations Office Visit 04/29/2013 11:26a [place] Mickey Rodriguez 790.7 Bacteremia Infectious Diseases Reza Bustillo 041.10 Bacterial Infection Staphylococcus Unspec 487.1 Influenza W/ Other Respiratory Manifestations Office Visit 04/28/2013 3:04p [facility] Claudine 481 Pneumonia Assoc,maurice Velez D.O. Pneumococcal Hospitalists 724.2 Lumbago 790.7 Bacteremia Office Visit 04/26/2013 3:03p [facility] Kevin Ace 786.51 Pain Precordial Assoc,Cristian Summers M.D. 790.7 Bacteremia 724.2 Lumbago Office Visit 04/25/2013 3:03p [facility] Kevin Ace 786.51 Pain Precordial Assoc,Cristian Summers M.D. 790.7 Bacteremia 724.2 Lumbago Office Visit 04/24/2013 3:03p [facility] Kevin Ace 786.51 Pain Precordial Assoc,Cristian Summers M.D. 790.7 Bacteremia 724.2 Lumbago Office Visit 04/22/2013 1:56p [facility] Shravan Rodriguez 790.7 Bacteremia Infectious Diseases Reza Bustillo 041.10 Bacterial Infection Staphylococcus Unspec 487.1 Influenza W/ Other Respiratory Manifestations Office Visit 04/22/2013 3:02p [facility] Kevin Ace 786.51 Pain Precordial Assoc,Cristian Summers M.D. 724.2 Lumbago 790.7 Bacteremia Office Visit 04/20/2013 9:13a [facility] Shravan Rodriguez 790.7 Bacteremia Infectious Diseases Reza Bustillo 041.10 Bacterial Infection Staphylococcus Unspec 487.1 Influenza W/ Other Respiratory Manifestations Office Visit 04/16/2013 3:00p [facility] Jerry 786.51 Pain Precordial Assoc,Reza Ceron 724.2 Lumbago 790.7 Bacteremia Office Visit 04/16/2013 11:13a [facility] Shravan Rodriguez 790.7 Bacteremia Infectious Diseases Reza Bustillo 041.10 Bacterial Infection Staphylococcus Unspec 487.1 Influenza W/ Other Respiratory Manifestations Office Visit 04/13/2013 2:41p [facility] Shravan Rodriguez 790.7 Bacteremia Infectious Diseases Reza Bustillo 041.10 Bacterial Infection Staphylococcus Unspec 487.1 Influenza W/ Other Respiratory Manifestations Office Visit 04/13/2013 8:44p [facility] 995.92 Severe Assoc,maurice LEIJA M.D. Sepsis Hospitalists 518.81 Respiratory Failure Acute 780.60 Fever, Unspecified 487.0 Influenza W/ Pneumonia Office Visit 04[facility]12[facility]2013 [facility] 995.[facility]oc,maurice Foster II, M.D. 518.81 Respiratory Failure Acute 780.60 Fever, Unspecified 487.0 Influenza W/ Pneumonia Office Visit 04/11/2013 8:43p [facility] 995.92 Severe Assoc,maurice LEIJA M.D. Sepsis Hospitalists 518.81 Respiratory Failure Acute 780.60 Fever, Unspecified 487.0 Influenza W/ Pneumonia Office Visit 04/10/2013 8:[facility] 995.92 Severe Assoc,maurice LEIJA M.D. Sepsis Hospitalists 518.81 Respiratory Failure Acute 780.60 Fever, Unspecified 487.0 Influenza W/ Pneumonia Office Visit 04/09/2013 8:42p [facility] 995.92 Severe Assoc,pc II MAmi. Sepsis Hospitalists 518.81 Respiratory Failure Acute 780.60 Fever, Unspecified 487.0 Influenza W/ Pneumonia Office Visit 04/08/2013 8:41p [facility] 995.92 Severe Assoc,pc IIReza Sepsis Hospitalists 518.81 Respiratory Failure Acute 780.60 Fever, Unspecified 487.0 Influenza W/ Pneumonia Office Visit 04/07/2013 8:41p [facility] Gregory Velázquez, 790.7 Bacteremia Assoc, Hospitalists D.O. 780.60 Fever, Unspecified 487.0 Influenza W/ Pneumonia 724.2 Lumbago Office Visit 04/06/2013 8:41p [facility] Gregory Velázquez, 790.7 Bacteremia Assoc, Hospitalists D.O. 780.60 Fever, Unspecified 487.0 Influenza W/ Pneumonia Office Visit 04/06/2013 8:12a [facility] Shravan Rodriguez 790.7 Bacteremia Infectious Melony Bustillo M.D. 041.10 Bacterial Infection Staphylococcus Unspec 487.1 Influenza W/ Other Respiratory Manifestations Office Visit 04/05/2013 8:40p [facility] Gregory Velázquez, 790.7 Bacteremia Assoc, Hospitalists D.O. 518.81 Respiratory Failure Acute 780.60 Fever, Unspecified 487.0 Influenza W/ Pneumonia Office Visit 04/04/2013 8:39p [facility] Gregory Velázquez, 790.7 Bacteremia Assoc, Hospitalists D.O. 518.81 Respiratory Failure Acute 780.60 Fever, Unspecified 487.0 Influenza W/ Pneumonia Office Visit 04/03/2013 8:39p [facility] Gregory Velázquez, 790.7 Bacteremia Assoc, Hospitalists D.O. 518.81 Respiratory Failure Acute 780.60 Fever, Unspecified 487.0 Influenza W/ Pneumonia Office Visit 04/03/2013 8:11a [facility] Shravan Rodriguez 790.7 Bacteremia Infectious Diseases Reza Bustillo 041.10 Bacterial Infection Staphylococcus Unspec 487.1 Influenza W/ Other Respiratory Manifestations Office Visit 04/02/2013 9:44a [facility] Gregory Velázquez, 518.81 Respiratory Assoc,pc D.O. Failure Acute Hospitalists 995.92 Severe Sepsis 780.60 Fever, Unspecified Office Visit 04/02/2013 8:38p [facility] Jerry 789.03 Pain Abdominal Assoc,maurice Julio M.D. Right Lower Hospitalists Quadrant 714.0 Rheumatoid Arthritis Office Visit 04/01/2013 8:37p [facility] Rashawn 789.03 Pain Abdominal Assoc,maurice Westbrook M.D. 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 Unspec Hospitalists Plan of Treatment 08/28/2018 - Boby Lang MDJ98.4 Other disorders of lungComments:He does not want to undergo a work up. He would benefit from checking his esr crp, PFts. He is not interested in an open lung biopsy. He wishes not to proceed with a work up. His Daughter was present with him.Follow up:rtc as needed.
--- OUTSIDE RECORDS SUMMARY | 2018-09-14 11:31 | XMS REPORT | Continuity of Care Document ---
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 Payers Date Identification Numbers Payment Provider Subscriber Policy Number: [id number] Medicare - Bswny d Ezio Medina PayID: [id number] [address] [place] [address] Policy Number: [id number] Aejazmyne Medina Group Number: [id number] [address] Group Name: [place] [address] PayID: [id number] Family History Date Family Member(s) Observation Comments General Leukemia General peripheral arterial disease Social History Type Date Description Comments Sex Unknown Marital Status 2017 Lives With Alone Diet Healthy, Well Balanced Occupation Retired Tobacco Use Start: Unknown End: Former Cigarette Smoker Quit decades ago Unknown Exercise Type/Frequency Does not exercise Allergies, Adverse Reactions, Alerts Active Allergies Reaction Severity Comments Date Amoxicillin Hives Moderate 05/16/2018 Methotrexate Hives Moderate 05/16/2018 Medications Active Medications SIG Qnty Indications Ordering Provider Date Oxycodone-Acetaminophe 1 by mouth every 60tabs Shan Villaseñor, 2018 n 4 hours as MD 5-325mg Tablets needed severe pain Gabapentin 1-2 tab by mouth 60caps M54.10 Shan Villaseñor, 08/15/2018 300mg Capsules three times a MD day at bedtime Lisinopril Take One Tablet Unknown 20mg Tablets By Mouth Every Day Metoprolol Succinate Take One Tablet Unknown ER By Mouth Every 25mg Tablets ER 24HR Day Tamsulosin HCL Take One Capsule Unknown 0.4mg By Mouth Every Capsules Day Furosemide Take 1 Tablet By Unknown 20mg Tablets Mouth Three Times A Week Aspir-81 1 by mouth every Unknown 81mg Tablets DR day Acetaminophen 1 by mouth three Unknown 500mg times a day as Tablets needed for pain History Medications Gabapentin take 1-2 capsules 60caps M54.10 Shan Villaseñor, 05/16/2018 - 100mg by mouth up to 3 MD 08/15/2018 Capsules times a day Azithromycin Take One Tablet Unknown - 250mg By Mouth Every 05/16/2018 Tablets Day Combivent Respimat Inhale One puff Unknown - By Mouth Every 6 08/15/2018 20-100mcg/Act Hours as Needed Aerosol For Shortness Of Breath Or Wheeze Prednisone Take Two Tablets Unknown - 20mg By Mouth Every 05/16/2018 Tablets Day Oxycodone-Acetaminop Take One Tablet Unknown - hen By Mouth Every 6 08/15/2018 10-325mg Tablets Hours as Needed For Pain Maximum Daily Dose 4 Vital Signs Date Vital Result Comment 08/15/2018 4:38pm BP Systolic 142 mmHg BP Diastolic 84 mmHg Heart Rate 60 /min Body Temperature 98.4 F Respiratory Rate 18 /min O2 % BldC Oximetry 96 % 05/16/2018 10:07am Weight 250.00 lb Hospital Weight (Unable to stand) Weight 113.400 kg BP Systolic 130 mmHg BP Diastolic 80 mmHg Heart Rate 70 /min Body Temperature 97.5 F Respiratory Rate 16 /min O2 % BldC Oximetry 98 % Encounters Type Date Location Provider Dx Diagnosis Office Visit 05/16/2018 Main Office Shan Villaseñor M54.10 Radiculopathy , site 10:15a unspecified R07.89 Other chest pain J44.1 Chronic obstructive pulmonary disease w (acute) exacerbation I50.20 Unspecified systolic (congestive) heart failure Plan of Treatment 08/15/2018 - Shan Villaseñor MDM54.10 Radiculopathy, site unspecifiedNew Medication:Gabapentin 300 mg - 1-2 tab by mouth three times a day at bedtimeComments:Doing well with 100 mg dosage, may do even better with 300.M05.60 Rheumatoid arthritis of unspecified site with involvement of
[2018-09-14 11:39] LABS: Albumin 3.5 g/dL (3.2-5.2); Albumin/Globulin Ratio 0.7 (1-3); BUN/Creatinine Ratio 18.6 (8-20); C Reactive Protein 12.66 mg/L (<8.01); Calcium 9.2 mg/dL (8.6-10.3); EGFR African American 90.1 (>60); EGFR Non-African American 74.5 (>60); Potassium 3.9 mmol/L (3.5-5.0); Total Bilirubin 0.3 mg/dL (0.2-1.0); Total Protein 8.5 g/dL (6.4-8.9)
[2018-09-14 11:40] LABS: ABS Eosinophils 0.3 10^3/ul (0-0.6); ABS Lymphocytes 0.7 10^3/ul (1.0-4.8); ABS Monocytes 0.8 10^3/ul (0-0.8); ABS Neutrophils 3.9 10^3/ul (1.5-7.7); Eosinophil % 4.5 %; Hematocrit 44 % (42-52); Hemoglobin 14.2 g/dL (14.0-18.0); Mean Corpuscular HGB Conc 33 g/dL (31-36); Mean Corpuscular Hemoglobin 32 pg (27-31); Mean Corpuscular Volume 99 fL (80-94); Mean Platelet Volume 7.6 fL (7.4-10.4); Nucleated Red Blood Cells % 0.1; Platelet Count 208 10^3/uL (150-450); Red Cell Distribution Width 14 % (10.5-15); White Blood Count 5.7 10^3/uL (3.5-10.8)
[2018-09-14 13:16] LABS: Urine Appearance Clear; Urine Bacteria Absent (Absent); Urine Bilirubin Negative (Negative); Urine Blood 2+ (Negative); Urine Color Yellow; Urine Glucose Negative (Negative); Urine Ketones Trace (Negative); Urine Nitrite Negative (Negative); Urine Protein Negative (Negative); Urine Red Blood Cell Trace(0-2/hpf) (Absent); Urine Specific Gravity 1.009 (1.010-1.030); Urine Urobilinogen Negative (Negative); Urine White Blood Cell Trace(0-5/hpf) (Absent)
[2018-09-14 14:26] VITALS: BP 146/89
== END | disposition home or self-care (01) ==
LOC: ED 10:37
DX: R10.31 Right lower quadrant pain (principal); R11.0 Nausea; R30.0 Dysuria; K40.90 Unilateral inguinal hernia, without obstruction or gangrene, not specified as recurrent; N20.0 Calculus of kidney; Z87.442 Personal history of urinary calculi; Q63.1 Lobulated, fused and horseshoe kidney; K80.20 Calculus of gallbladder without cholecystitis without obstruction; K57.30 Diverticulosis of large intestine without perforation or abscess without bleeding; N40.0 Benign prostatic hyperplasia without lower urinary tract symptoms; N18.9 Chronic kidney disease, unspecified; M06.9 Rheumatoid arthritis, unspecified; Z95.810 Presence of automatic (implantable) cardiac defibrillator; Z95.5 Presence of coronary angioplasty implant and graft; Z88.0 Allergy status to penicillin; Z88.2 Allergy status to sulfonamides; Z88.8 Allergy status to other drugs, medicaments and biological substances; Z87.891 Personal history of nicotine dependence
CPT/HCPCS: 36415; 74176; 80053; 81003; 81015; 83605; 83690; 85025; 86140; 87086; 96374; 96375; 99283; J2270; J2405